=== PATIENT | female | born 1960 | race Caucasian/White ===

== ENCOUNTER → 2022-05-13 12:23 | Outpatient (CLI) | payer BC, SELFPAY ==
--- NOTE | ~2022-05-13 | MM_ITS ---
EXAMINATION: MM screening dinesh BI w ed HISTORY: Screening mammogram TECHNIQUE: Craniocaudal and mediolateral oblique 3-D tomosynthesis images were obtained and synthetic 2-D images were generated. CAD analysis was submitted and interpreted. COMPARISON: 01/20/2019 bilateral screening mammogram 04/16/2016 diagnostic left mammogram 04/08/2016 bilateral screening mammogram BREAST PARENCHYMAL COMPOSITION: The breasts are heterogeneously dense, which may obscure small masses .. FINDINGS: There is no evidence of suspicious mass, calcification, or architectural distortion to sugg est malignancy in either breast. There has been no suspicious interval change. IMPRESSION: 1. No mammographic evidence of malignancy. 2. Recommend routine screening mammography in one year. BI-RADS Category 1: Negative Reviewed, dictated and finalized at location A. ATORS SCHOOL MANAGER
== END ==
PROVIDERS: PCP Internal Medicine; Visit Provider Internal Medicine
DX: Z12.31 Encounter for screening mammogram for malignant neoplasm of breast (principal)
CPT/HCPCS: 77063; 77067

== ENCOUNTER → 2022-05-13 14:05 | Outpatient (CLI) | payer BC, SELFPAY ==
--- NOTE | ~2022-05-13 | XR_ITS ---
EXAMINATION: XR knee RT min 4V DATE: 05/13/2022 14:24 INDICATION: Right knee pain. TECHNIQUE: 4 views of right knee including standing views were obtained. COMPARISON: None. FINDINGS: Bone alignment is normal. No fracture. There is mild osteoarthritis of medial and patellofe moral compartments characterized by tiny osteophytes. No joint space narrowing. No knee joint effusio n. IMPRESSION: 1. Mild right knee osteoarthritis. Reviewed, dictated and finalized at location A. UER DIPPING MACHINE OPERATOR
== END ==
PROVIDERS: PCP Internal Medicine; Visit Provider Internal Medicine
DX: M25.561 Pain in right knee (principal); M17.11 Unilateral primary osteoarthritis, right knee
CPT/HCPCS: 73564

== ENCOUNTER 2023-01-14 12:43 | Emergency (ER) | payer BC, SELFPAY ==
--- NOTE | 2023-01-14 12:50 | ED.GENADULT ---
HPI - General Adult General Chief complaint: Allergic Reaction Stated complaint: Allergic Reaction/Face Source: patient and RN notes reviewed History of Present Illness HPI narrative: 62 yo F presents to urgent care with complaints of an itchy rash to her face. Pt states she was recently in [place] and returned this morning. Pt states yesterday morning, she was helping a friend spray for bugs when the bug spray went into her face. Pt denies any getting in her mouth or eyes. Pt states she didn't think anything of it at the time but noticed this morning her rash. Denies any fevers, chills, vomiting, trouble swallowing or breathing. Pt did take a Benadryl [employer]. Related Data Allergies Allergy/AdvReac Type Severity Reaction Status Date / Time nirmatrelvir [From Paxlovid] Allergy Anxiety Verified 01/14/23 12:57 oseltamivir [From Tamiflu] Allergy Unknown Verified 01/14/23 12:56 ritonavir [From Paxlovid] Allergy Anxiety Verified 01/14/23 12:57 Review of Systems Review of Systems: CONSTITUTIONAL: Denies fever, chills, or sweats. EYES: Denies visual changes, redness, or discharge. ENT: Denies otalgia and sore throat CARDIOVASCULAR: Denies chest pain, palpitations, or edema. RESPIRATORY: Denies cough or dyspnea. GASTROINTESTINAL: Denies abdominal pain, nausea, vomiting, or diarrhea. GENITOURINARY: Denies dysuria or hematuria. SKIN: itchy rash MUSCULOSKELETAL: Denies back pain, joint pain, or myalgia. NEUROLOGIC: Denies headache, numbness, or weakness. Pertinent positives per HPI. PMFSH Comments At the time of my signature, I reviewed and agree with the nursing past medical, surgical, social, and family history. There is no relevant family history pertinent to the patient complaint. Exam Narrative: GENERAL: This is a well-nourished, well-developed patient, in no apparent distress. HEAD: normocephalic, atraumatic. EYES: Sclera clear/white. Vision is grossly intact. EARS: External ears normal, auditory canals clear and without drainage, TMs normal without perforation. Hearing grossly intact. NOSE: External nose normal with no obvious nasal discharge, nares without redness, no rhinorrhea. THROAT: Mucous membranes moist, posterior pharynx clear. NECK: Neck supple, non-tender without lymphadenopathy, masses or thyromegaly. CARDIOVASCULAR: Regular rate and rhythm without murmurs, gallops, or rubs. RESPIRATORY: Clear to auscultation. Breath sounds equal bilaterally. No wheezes, rales, or rhonchi. GASTROINTESTINAL: Abdomen soft, non-tender, nondistended. Bowel sounds are active. No hepato-splenomegaly, or palpable masses. No guarding. SKIN: erythremic welts to bilateral cheeks. NEURO: awake, alert, and oriented to person, place and time. There were no obvious focal neurologic abnormalities. EXTREMITIES: No clubbing, cyanosis, or edema. No joint tenderness, effusion, or edema noted. BACK: Nontender without deformity or crepitus. No flank tenderness. Course Course Level of Care: Express Care Visit Vital Signs Vital signs: Vital Signs Temperature 97.3 F L 01/14/23 12:54 Pulse Rate 63 01/14/23 12:54 Respiratory Rate 14 01/14/23 12:54 Blood Pressure 113/41 L 01/14/23 12:54 Pulse Oximetry 100 01/14/23 12:54 Oxygen Delivery Room Air 01/14/23 12:54 Temperature 97.3 F L 01/14/23 12:57 Pulse Rate 63 01/14/23 12:57 Respiratory Rate 14 01/14/23 12:57 Blood Pressure 113/41 L 01/14/23 12:57 Pulse Oximetry 100 01/14/23 12:57 Oxygen Delivery Room Air 01/14/23 12:57 Reviewed Medical Decision Making MDM Narrative Medical decision making narrative: Take steroids as directed. May take 25mg-50 mg of Benadryl every 6 hours if needed for itching. If rash worsens or you develop any new symptoms, go to the ER. Differential Diagnosis Differential Diagnosis: contact dermatitis, allergic reaction, viral illness Vital Signs Vital Signs: Vital Signs Temperature 97.3 F L 01/14/23 12:54 Pulse Ra
[2023-01-14 12:54] VITALS: BP 113/41; PULSE 63; RESP 14; TEMP 36.3; O2SAT 100
[2023-01-14 12:57] VITALS: BP 113/41; PULSE 63; RESP 14; TEMP 36.3; O2SAT 100
[2023-01-14] MEDS: predniSONE 20 MG TABLET 60 MG PO (13:02)
== END 2023-01-14 13:04 | disposition home or self-care (01) ==
PROVIDERS: Emergency Provider Nurse Practitioner Family; PCP Internal Medicine
DX: L25.3 Unspecified contact dermatitis due to other chemical products (principal); E03.9 Hypothyroidism, unspecified
CPT/HCPCS: 99213; G0463; J7512

== ENCOUNTER 2023-05-18 12:12 | Emergency (ER) | payer BC, SELFPAY ==
[2023-05-18 12:16] VITALS: BP 103/59; PULSE 67; RESP 16; TEMP 36.2; O2SAT 100
--- NOTE | 2023-05-18 12:40 | ED.SKABFB ---
HPI - Skin/Abscess/Foreign Bdy General Chief complaint: Skin/Abscess/Foreign Body Stated complaint: Rash Time Seen by Provider: 05/18/23 12:40 Source: patient, RN notes reviewed and old records reviewed Mode of arrival: ambulatory Limitations: no limitations History of Present Illness HPI narrative: 63 year old female presents to express with complaints of working in her yard a couple of days cleaning along fence row and has a spot on her left inner wrist, small spot on face with itching under chin and on anterior neck. Patient reports that she was exposed to poisonous plants. Patient reports that she has been applying hydrocortisone cream to rash areas.Patient denies any shortness of breath or any difficulty swallowing. MD complaint: rash Onset (ago): day(s) (2) Location: face, neck (itching) and LUE (inner wrist) Associated symptoms: itching Treatments prior to arrival: other (hydrocortisone cream) Related Data Allergies Allergy/AdvReac Type Severity Reaction Status Date / Time nirmatrelvir [From Paxlovid] AdvReac Anxiety Verified 05/18/23 12:33 oseltamivir [From Tamiflu] AdvReac Unknown Verified 05/18/23 12:33 ritonavir [From Paxlovid] AdvReac Anxiety Verified 05/18/23 12:33 Review of Systems Review of Systems: CONSTITUTIONAL: Denies fever, chills, or sweats. CARDIOVASCULAR: Denies chest pain, palpitations, or edema. RESPIRATORY: Denies cough or dyspnea. SKIN: Reports lesion on inner left wrist, lesion on face with itching anterior neck MUSCULOSKELETAL: Denies joint pain or myalgia. NEUROLOGIC: Denies headache, numbness, or weakness. All systems reviewed & are unremarkable except as noted in HPI and below PMFSH Past Medical History Medical History (Updated 05/19/23 @ 10:06 by Shahla Tejeda NP) Hypothyroidism Post-menopausal Surgical History Surgical History (Updated 05/19/23 @ 10:02 by Shahla Tejeda NP) History of tonsillectomy History of uterine suspension procedure Social History Social History (Updated 05/19/23 @ 10:00 by Shahla Tejeda NP) Smoking status: Never smoker Alcohol intake: current Alcohol use details: rare social Substance use type: does not use Gender identity (if verbalized by the patient): Female Comments At time of signature, agree with nursing past medical, surgical, social and family history. There is no relevant family history pertinent to the presenting complaint Exam Narrative: GENERAL: Well-appearing, well-nourished, and in no acute distress. HEAD: Normocephalic, atraumatic. EYES: PERRLA, conjunctivae clear, and EOMI. ENT: Mucous membranes moist. Oropharynx without edema, erythema or lesions. tonsils absent. NECK: Supple. No lymphadenopathy CHEST: Clear to auscultation. No respiratory distress.SAO2 100% on room air HEART: Regular rate and rhythm. SKIN: Warm, dry.? small red raised lesion to inner left wrist, right face with pruritus to anterior neck NEURO:? Alert and oriented x3. PSYCH: Normal mood and affect Course Course Emergency Course: Patient is aware of diagnosis, understands and agrees to treatment plan.? Anticipatory guidance given.? Patient agrees to follow-up as directed and is aware of reasons to seek care at the emergency department. Portions of this record may have been created with voice recognition software Level of Care: Express Care Visit Vital Signs Vital signs: Vital Signs Temperature 36.2 C L 05/18/23 12:16 Pulse Rate 67 05/18/23 12:16 Respiratory Rate 16 05/18/23 12:16 Blood Pressure 103/59 L 05/18/23 12:16 Pulse Oximetry 100 05/18/23 12:16 Oxygen Delivery Room Air 05/18/23 12:16 Temperature 36.2 C L 05/18/23 12:16 Pulse Rate 67 05/18/23 12:16 Respiratory Rate 16 05/18/23 12:16 Blood Pressure 103/59 L 05/18/23 12:16 Pulse Oximetry 100 05/18/23 12:16 Oxygen Delivery Room Air 05/18/23 12:16 Reviewed MDM - Skin/Abscess/Foreign Bdy MDM Narrative M
== END 2023-05-18 12:55 | disposition home or self-care (01) ==
PROVIDERS: Emergency Provider Registered Nurse; PCP Internal Medicine
DX: L25.9 Unspecified contact dermatitis, unspecified cause (principal); E03.9 Hypothyroidism, unspecified
CPT/HCPCS: 99213; G0463

== ENCOUNTER 2023-05-23 12:53 | Outpatient (CLI) | payer BC, SELFPAY ==
--- NOTE | ~2023-05-23 | DEXA_ITS ---
Bone Density Report Name: NAHID PERERA Age: 63 Sex: Female Ethnicity: White Date of : 1960 Indication: postmenopausal; screening for osteoporosis; Referring Provider: SABA MARQUES Study: Bone densitometry was performed. Exam Date: May 23, 2023 Accession number: [id number] Bone Density: Region BMD T-score Z-score Classification AP Spine(L1-L4) 0.814 -2.1 -0.6 Osteopenia Femoral Neck (Left) 0.583 -2.4 -1.1 Osteopenia Total Hip (Left) 0.688 -2.1 -1.1 Osteopenia Femoral Neck (Right) 0.581 -2.4 -1.1 Osteopenia Total Hip (Right) 0.679 -2.2 -1.1 Osteopenia Total Hip Mean 0.683 -2.2 -1.1 Osteopenia World Health Organization criteria for BMD impression classify patients as: Normal (T-score at or above -1.0), Osteopenia (T-score between -1.0 and -2.5), or Osteoporosis (T-score at or below -2.5). 10-year Fracture Risk(1): Major Osteoporotic Fracture 11% Hip Fracture 1.9% Reported Risk Factors: [place] (), Neck BMD=0.583, BMI=23.8 (1) FRAX(R) Version 3.08. Fracture probability calculated for an untreated patient. Fracture probability may be lower if the patient has received treatment. Clinical Information Provided by Patient: Has used the following medications: Vitamin D Patient maximum height was 63 Menopause Age: 52 Does not regularly consume dairy products Drinks caffeinated beverages Onset of menses at age 14 Number of children 2 Impression: The patient has low bone mass, based on the Left Femoral Neck T-score. The patient has an estimated ten-year risk of hip fracture of 1.9% and an estimated ten-year risk of major fracture of 11%, based on the WHO FRAX algorithm. Discussion: BONE DENSITY IS LOW AT ONE OR MORE SKELETAL SITES. This patient's lowest T-score is low at one or more skeletal sites. It meets the World Health Organization's (WHO) criteria for ?low bone mass? (T-score between -1.0 and -2.5). The patient's 10-year risk of fracture as calculated by FRAX is less than the threshold where pharmacological therapy is recommended by the National Osteoporosis Foundation (NOF). However, all treatment decisions require clinical judgment and consideration of individual patient factors, including patient preferences, comorbidities, previous drug use, risk factors not captured in the FRAX model (e.g., frailty, falls, vitamin D deficiency, increased bone turnover, interval significant decline in bone density) and possible under or overestimation of fracture risk by FRAX. The patient should follow a healthful lifestyle (good nutrition with adequate calcium and vitamin D, and appropriate weight-bearing exercise). Follow-Up: Consider repeating this study in 2 to 3 years to reassess this patient's status, or sooner if there is some new clinical indication. Repo
== END 2023-05-23 12:54 | disposition home or self-care (01) ==
LOC: ANHIMG 12:55
PROVIDERS: PCP Internal Medicine; Visit Provider Internal Medicine
DX: M85.9 Disorder of bone density and structure, unspecified (principal); Z78.0 Asymptomatic menopausal state
CPT/HCPCS: 77080

== ENCOUNTER → 2023-05-27 10:57 | Outpatient (CLI) | payer BC, SELFPAY ==
--- NOTE | ~2023-05-27 | XR_ITS ---
EXAMINATION: XR lumbar spine min 4V DATE: 05/27/2023 11:51 INDICATION: Low back pain TECHNIQUE: Anteroposterior, lateral, and bilateral oblique views of the lumbar spine, and cone-down l ateral view of the lumbosacral junction were obtained. COMPARISON: None. FINDINGS: Bone alignment is normal. There is no fracture. There is severe loss of intervertebral disc space height at L5-S1. The vertebral body heights are maintained. There is severe facet joint osteoa rthritis at L5-S1. Small degenerative osteophytes project from the anterior endplates of multiple belkys tebral bodies. IMPRESSION: 1. Severe lumbar spondylosis at L5-S1 without acute osseous abnormality. Reviewed, dictated and finalized at location F. CTOR NON PROFIT
== END ==
PROVIDERS: PCP Internal Medicine; Visit Provider Internal Medicine
DX: M43.06 Spondylolysis, lumbar region (principal)
CPT/HCPCS: 72110

== ENCOUNTER 2023-06-03 09:49 | Outpatient (CLI) | payer BC, SELFPAY ==
--- NOTE | ~2023-06-03 | US_ITS ---
US abdomen complete EXAMINATION: US Abdomen Complete INDICATION: Right upper quadrant pain PROCEDURE: Realtime High Resolution abdomen ultrasound. COMPARISON: No prior studies for comparison FINDINGS: Gallbladder within normal limits. No gallstones, pericholecystic fluid, gallbladder wall t hickening or biliary dilatation. Common bile duct measures 4 mm. Liver echotexture within normal limits without focal solid mass. Pancreas within normal limits. [place] creatic tail is obscured by bowel gas. Spleen is unremarkeable. Renal echotexture is within normal l imits bilaterally without hydronephrosis, contour deforming mass or renal stone. Right kidney measure s 9.9 cm. Left kidney measures 9.6 cm. There are liver and left renal cysts. Largest liver cyst measu res 2.2 cm. Visualized aspects of the aorta and IVC are within normal limits. Portal vein is patent. No sonograph ic Ramsay's sign indicated by the technologist. IMPRESSION: 1: Liver and left renal cysts. Reviewed, dictated and finalized at location B. TANK ASSEMBLER
== END 2023-06-03 09:50 ==
LOC: MICIMG 09:51
PROVIDERS: PCP Internal Medicine; Visit Provider Internal Medicine
DX: R10.11 Right upper quadrant pain (principal); N28.1 Cyst of kidney, acquired; K76.89 Other specified diseases of liver
CPT/HCPCS: 76700

== ENCOUNTER 2023-07-12 10:26 | Outpatient (CLI) | payer BC, SELFPAY ==
--- NOTE | 2023-07-12 11:00 | NEURO_ITS ---
Impression: # Complains of right lower extremity numbness around the right knee joint medially. # Right Saphenous sensory neuropathy. # Normal F-waves. # Normal needle/EMG exam. # Clinical correlation recommended. Nerve Conduction Studies Anti Sensory Summary Table Stim Site NR Peak (ms) P-T Amp (?V) Site1 Site2 Delta-P (ms) Dist (cm) Evangelista (m/s) Right Saphenous Anti Sensory (Ant Med Mall) NO RESPONSE 14cm NR 14cm Ant Med Mall 0.0 Right Sup Fibular Anti Sensory (Ant Lat Mall) 14 cm 2.8 11.5 14 cm Ant Lat Mall 2.8 16.0 57 Right Sural Anti Sensory (Lat Mall) Calf 3.3 4.8 Calf Lat Mall 3.3 16.0 48 Motor Summary Table Stim Site NR Onset (ms) O-P Amp (mV) Site1 Site2 Delta-0 (ms) Dist (cm) Evangelista (m/s) Right Peroneal Motor (Vastus Med) Ankle 3.7 4.4 Popit Ankle 7.5 37.0 49 Popit 11.2 4.9 Right Tibial Motor (Abd Stone Brev) Ankle 3.4 7.2 Knee Ankle 7.6 41.0 54 Knee 11.0 4.5 F Wave Studies NR F-Lat (ms) L-R F-Lat (ms) Right Peroneal (Mrkrs) (EDB) 46.76 Right Tibial (Mrkrs) (Abd Hallucis) 47.15 EMG Side Muscle Nerve Root Ins Act Fibs Amp Dur Recrt Comment Right AntTibialis Dp Br Fibular L4-5 Nml Nml Nml Nml Nml Right Gastroc Tibial S1-2 Nml Nml Nml Nml Nml Right Fibularis Long Sup Br Fibular L5-S1 Nml Nml Nml Nml Nml Right Flex Dig Long Tibial L5-S2 Nml Nml Nml Nml Nml Right Ext Dig Brev Dp Br Fibular L5, S1 Nml Nml Nml Nml Nml MTDD
== END 2023-07-12 10:27 | disposition home or self-care (01) ==
LOC: ANHNEURO 10:27
PROVIDERS: PCP Internal Medicine; Visit Provider Internal Medicine
DX: R20.2 Paresthesia of skin (principal); G60.8 Other hereditary and idiopathic neuropathies
CPT/HCPCS: 95886; 95909

== ENCOUNTER 2023-08-12 07:53 | Outpatient (CLI) | payer BC, SELFPAY ==
--- NOTE | ~2023-08-12 | MR_ITS ---
MRI of the lumbar spine Clinical History: Back pain Technique: Axial T2-weighted images, and sagittal T1-weighted, T2-weighted, and T2 fat-sat images wer e acquired. Findings: There is no fracture or subluxation of the lumbar spine. Vertebral bodies maintain normal h eight and alignment. No suspicious bone marrow signal abnormality seen. At L1-L2, L2-L3, L3-L4, the intervertebral disc maintain normal signal and position. No disc bulge or herniation T levels. No spinal canal stenosis or neural foraminal narrowing at these levels. At L4-L5, there is minimal disc bulge and minimal facet arthropathy. No central canal stenosis or cindi ral foraminal narrowing. At L5-S1, there is moderate to advanced degenerative disc narrowing. There is a small central disc pr otrusion with annular fissure. No central canal stenosis. There is mild to moderate right neural fora leo narrowing, and mild left neural foraminal narrowing. Paravertebral soft tissues are unremarkable. Impression: Moderate degenerative spondylosis at L5-S1, as detailed above. Reviewed, dictated and finalized at location . IDER RELATIONS MANAGER Impression: Moderate degenerative spondylosis at L5-S1, as detailed above.
== END 2023-08-12 07:54 | disposition home or self-care (01) ==
PROVIDERS: PCP Internal Medicine; Visit Provider Internal Medicine
DX: M47.817 Spondylosis without myelopathy or radiculopathy, lumbosacral region (principal)
CPT/HCPCS: 72148

== ENCOUNTER 2023-09-12 13:19 | Outpatient (CLI) | payer BC, SELFPAY ==
--- NOTE | ~2023-09-12 | MM_ITS ---
EXAMINATION: MM screening dinesh BI w ed HISTORY: Screening mammogram TECHNIQUE: Craniocaudal and mediolateral oblique 3-D tomosynthesis images were obtained and synthetic 2-D images were generated. CAD analysis was submitted and interpreted. COMPARISON: 05/13/2022, 01/20/2019 bilateral screening mammogram examinations BREAST PARENCHYMAL COMPOSITION: There are scattered areas of fibroglandular density. FINDINGS: There is no evidence of suspicious mass, calcification, or architectural distortion to sugg est malignancy in either breast. There has been no suspicious interval change. IMPRESSION: 1. No mammographic evidence of malignancy. 2. Recommend routine screening mammography in one year. BI-RADS Category 1: Negative Reviewed, dictated and finalized at location A.
== END 2023-09-12 13:20 ==
LOC: MICIMG 13:20
PROVIDERS: PCP Nurse Practitioner; Visit Provider Internal Medicine
DX: Z12.31 Encounter for screening mammogram for malignant neoplasm of breast (principal)
CPT/HCPCS: 77063; 77067

== ENCOUNTER 2024-01-24 11:59 | Outpatient (CLI) | payer BC, SELFPAY ==
--- NOTE | 2024-01-24 13:13 | ECG_ITS ---
Test Date: 2024-01-24 13:27:43 Measurements Intervals [place] Rate: 70 P: 68 ID: [id number] QRS: 62 QRSD: 85 T: 46 QT: 377 QTc: 409 Interpretive Statements SINUS RHYTHM BASELINE ARTIFACT- I, II, III, AVR, AVL, AVF, V1-V3 NORMAL ECG No previous ECG available for comparison Electronically Signed On 01-24-2024 13:28:59 CDT by Aiden Garcia D.O.
[2024-01-24 13:38] LABS: Basophils Percent Auto 0.6 % (0.2-1.2); Eosinophils Absolute Auto 0.1 K/mm3 (0-0.3); Eosinophils Percent Auto 1.6 % (0-4.4); Hematocrit 36.5 % (37.0-47.0); Hemoglobin 12.4 g/dL (12.0-15.0); Immature Granulocyte Absolute 0.03 K/mm3 (0.00-0.031); Immature Granulocyte Percent A 0.4 % (0-0.5); Lymphocytes Absolute Auto 1.98 K/mm3 (0.9-3.2); Lymphocytes Percent Auto 29.4 % (18.3-44.2); Mean Corpuscular Hemoglobin 30.8 pg (26-34); Mean Corpuscular Volume 90.8 fl (80-100); Mean Platelet Volume 9.6 fl (7.4-10.4); Monocytes Absolute Auto 0.6 K/mm3 (0.1-0.6); Monocytes Percent Auto 9.5 % (2.6-8.5); Neutrophils Absolute Auto 3.9 K/mm3 (1.3-6.7); Neutrophils Percent Auto 58.5 % (45.5-73.1); Platelet Count Result 237 k/mm3 (150-375); Red Blood Count 4.02 M/mm3 (4.2-5.4); Red Cell Distribution Width 12.6 % (11.5-14.5); White Blood Count 6.7 K/mm3 (4.5-10.0)
[2024-01-24 13:42] LABS: INR 0.9; Prothrombin Time 12.9 Seconds (11.1-14.7)
[2024-01-24 13:43] LABS: Partial Thromboplastin Time 24.6 Seconds (22.3-36.8)
[2024-01-24 13:45] LABS: Alanine Aminotransferase 15 U/L (6-35); Albumin Level 4.8 g/dL (3.5-5.1); Alkaline Phosphatase 46 U/L (38-126); Anion Gap 10 mmol/L (4-12); Aspartate Amino Transferase 24 U/L (14-36); Bilirubin,Total 0.3 mg/dL (0.2-1.3); Blood Urea Nitrogen 18 mg/dL (7-17); Calcium 9.3 mg/dL (8.4-10.2); Carbon Dioxide 30 mmol/L (22-30); Chloride 99 mmol/L (98-107); Estimated Glomerular Filt Rate > 60; Glucose 87 mg/dL (65-110); Potassium 4.2 mmol/L (3.4-5.0); Sodium 139 mmol/L (137-145)
== END 2024-01-24 12:00 | disposition home or self-care (01) ==
LOC: ANHSURGERY 12:03
PROVIDERS: PCP Internal Medicine; Visit Provider Urology
DX: Z01.818 Encounter for other preprocedural examination (principal); N81.4 Uterovaginal prolapse, unspecified; E78.5 Hyperlipidemia, unspecified
CPT/HCPCS: 36415; 80053; 85025; 85610; 85730; 86850; 86900; 86901; 93005

== ENCOUNTER 2024-01-30 00:21 | Day surgery (SDC) | payer BC, SELFPAY ==
--- NOTE | 2024-01-22 09:45 | P.HP_ITS ---
H&P: HPI History of Present Illness Date/Time: 01/22/24 09:45 Chief Complaint: pelvic organ prolapse, stress incontinence Narrative: has bothersome pelvic organ prolapse as well as stress incontinence. Desires correction Review of Systems Review of Systems: All systems reviewed & are unremarkable except as noted in HPI and below PMFSH Past Medical History Medical History Hypothyroidism Post-menopausal Surgical History Surgical History History of tonsillectomy History of uterine suspension procedure Social History Social History Years smoked: 10 Smoking status: Former smoker Additional smoking assessment comments: ON AND OFF 10 YEARS Alcohol intake: current Alcohol use details: 1 PER MONTH Substance use: never Substance use type: does not use Living arrangements: with family Gender identity (if verbalized by the patient): Female Spiritual care concerns: No Meds Home Medications and Allergies Home Medications Medication Instructions Recorded Confirmed Type No Home Medications 04/29/22 06/03/22 History methylprednisolone 4 mg tablets in See Rx Instructions PO .COMPLEX 05/18/23 Rx a dose pack (Medrol (Selvin)) #21 ea triamcinolone acetonide 0.1 % 1 applic topical BID #80 grams 05/18/23 Rx topical ointment Allergies Allergy/AdvReac Type Severity Reaction Status Date / Time nirmatrelvir [From Paxlovid] AdvReac Anxiety Verified 08/15/23 10:37 oseltamivir [From Tamiflu] AdvReac Unknown Verified 08/15/23 10:37 ritonavir [From Paxlovid] AdvReac Anxiety Verified 08/15/23 10:37 Exam Narrative: no acute distress normal breathing alert and oriented x3 cystocele at +2. Freedom at 0 urethral mobility Assessment and Plan Assessment and plan (1) Uterine prolapse: Code(s): N81.4 - Uterovaginal prolapse, unspecified Status: Acute (2) ALMA (stress urinary incontinence, female): Code(s): N39.3 - Stress incontinence (female) (male) Status: Acute Plan robotic colpopexy with concomitant urethral sling. Understands risks of bleeding, infection, damage to surrounding organs, damage to the urinary tract, vaginal mesh extrusion, urinary tract mesh erosion, obstructive voiding requiring secondary procedure, hip and leg pain, dyspareunia, diskitis, recurrent or persistent incontinence or prolapse. Agrees to proceed
--- NOTE | 2024-01-24 12:01 | PC.NURSE ---
Report to the Outpatient Waiting Room, entrance under the green pavilion located off [facility], at time ___10:00am____ on date ___01/30/24____. Planned Procedure Time: ___12:00pm . Time changes happen often and if your time is changed the preop area will call you the afternoon before. - You and your visitor will be asked to self-screen and do not enter if you have any COVID symptoms. - A mask is optional within the hospital at this time. Patients may have clear liquids (water, carbonated beverages, clear teas, apple juice) until 3 hours prior to surgery with a maximum of 20 ounces. - No food from midnight until time of surgery Take the following medications with a SIP of water the morning of surgery: None DO NOT STOP ANY OF YOUR OTHER PRESCRIPTION MEDICATIONS PRIOR TO SURGERY ?EXCEPT THE FOLLOWING Medications to discontinue per physician All vitamins, and supplements for 3 days per Anesthesia Date to take last dose____01/26/24 Please no make-up, nail turkish, hairspray, perfume, deodorant, or body powder the day of surgery. No jewelry (including any body piercings) or valuables the day of surgery, leave them at home. Please take a shower or bath the night before, or the morning of, surgery with an antibacterial soap. Wear comfortable, loose fitting clothing. - Jewelry must be removed prior to entering the operating room. Rings and piercings that are not removed may be cut off. - The hospital will not accept responsibility for valuables. - Please leave all valuables, including medications, at home the day of surgery. If you are going home after surgery, a licensed motor coach driver must drive you home. - NO public transportation without another adult if you receive anesthesia. - We recommend that an adult stay with you for 24 hours following discharge. - We also recommend that you do not drive, make important decision, drink alcoholic beverages, or take any drugs that were not prescribed by your health care provider for at least 24 hours after your discharge time. Follow any additional instructions given to you from your surgeon. If you or anyone in your household have experienced Covid symptoms in the past week, please notify your surgeon or the nurse liaison at the phone number below for possible testing. Telephone instructions given to __patient and asked if any additional questions and then verbalized understanding. Patient advised to call surgeon office or pre surgery nurse liaison [phone] if any additional questions.
[2024-01-24 12:10] VITALS: BP 108/60; PULSE 70; RESP 16; TEMP 36.8; O2SAT 98; BMI 25.2
[2024-01-30] VITALS (9 sets, daily range): BP systolic 92–113; BP diastolic 46–63; PULSE 58–74; RESP 8–20; TEMP 36.3–37.1; O2SAT 97–100; BMI 24.7
--- NOTE | ~2024-01-30 | CT_ITS ---
CT of the Abdomen and Pelvis: Indication: Postoperative hypotension Technique: 2.5 mm axial scans were obtained through the abdomen and pelvis following intravenous adm inistration of 100 cc of Omnipaque 350. Dose reduction technique was used on this scan by utilizing a utomated exposure control and iterative reconstruction technique. The dose-length product (DLP) was 3 85.62 mGy-cm. Findings: Scans through the lung bases are unremarkable. Left hepatic lobe cyst present. There is mild gallbladder wall thickening, nonspecific. The spleen, p ancreas, adrenals and kidneys are within normal limits. No evidence of aortic aneurysm. No lymphade nopathy. No bowel obstruction or bowel wall thickening. There is extensive pneumoperitoneum, as well as enlarg ement of soft tissue gas in the anterior subcutaneous soft tissues, also which is presumably postoper ative in nature. No ascites. Small fat-containing umbilical hernia. Images through the pelvis were performed. Urias catheter and small amount of air present in the urina ry bladder. No pelvic mass evident. Impression: Extensive pneumoperitoneum and anterior subcutaneous soft tissue gas, likely postoperative in nature. Correlate clinically for any possibility of bowel perforation. No free fluid evident. Mild gallbladder wall thickening, nonspecific. Reviewed, dictated and finalized at [facility]. Impression: Extensive pneumoperitoneum and anterior subcutaneous soft tissue gas, likely po stoperative in nature. Correlate clinically for any possibility of bowel perfor ation. No free fluid evident. Mild gallbladder wall thickening, nonspecific.
--- NOTE | 2024-01-30 04:35 | WPDHPUPDATE1 ---
History and Physical Update Update Date/Time: 01/30/24 04:35 History and Physical has been reviewed, including an updated exam of the patient. There are NO changes in the patient's condition. Risks, benefits, and alternatives have been discussed and questions answered. Patient agrees to proceed with procedure.
--- NOTE | 2024-01-30 07:12 | WPDHPUPDATE1 ---
History and Physical Update Update Date/Time: 01/30/24 07:12 History and Physical has been reviewed, including an updated exam of the patient. There are NO changes in the patient's condition. Risks, benefits, and alternatives have been discussed and questions answered. Patient agrees to proceed with procedure.
[2024-01-30] MEDS: KETOROLAC 15 MG/ML VIAL (*BKC) IV PUSH ×2 (11:14→17:46)
[2024-01-30] MEDS: LACTATED RINGERS 1,000 ML 30 ML IV CONT ×2 (11:14→14:43)
[2024-01-30] MEDS: SCOPOLAMINE 1 MG PATCH 1 PATCH TRANSDERM ×2 (11:14→11:15)
[2024-01-30] MEDS: ACETAMINOPHEN 500 MG TABLET 1000 MG PO (11:14)
--- NOTE | 2024-01-30 11:39 | P.PNAN_ITS ---
Anes - Initial Pre Proc Eval Procedure: Operation Date: 01/30/24 12:00 Proposed Procedures p Robotic Sacrocolpopexy, Urethral Sling - Wayne Grider MD s Robotic Laparoscopic Supracervical Hysterectomy with Bilateral Salpingo- oophorectomy - Rex Hackett MD Date/Time: 01/30/24 11:39 Surgeon: Wayne Grider MD Pre Op Diagnosis: incomp uterovag prolapse, cystocele, stress incont Patient Data Age: 63 Gender: F Height: 1.59 m Weight: 64 kg Last Vital Signs Temp 98.3 F 01/24/24 12:10 Pulse 70 01/24/24 12:10 Resp 16 01/24/24 12:10 BP 108/60 01/24/24 12:10 Pulse Ox 98 01/24/24 12:10 O2 Del Method Room Air 01/24/24 12:10 Allergies Allergy/AdvReac Type Severity Reaction Status Date / Time nirmatrelvir [From Paxlovid] AdvReac Intermediate Anxiety, Verified 01/24/24 13:21 confusion oseltamivir [From Tamiflu] AdvReac Intermediate Unknown Verified 01/24/24 13:21 ritonavir [From Paxlovid] AdvReac Intermediate Anxiety, Verified 01/24/24 13:21 confusion Home Medications Medication Instructions Recorded Confirmed Type minerals 1 tablet PO DAILY 01/24/24 01/24/24 History multivitamin 1 cap PO DAILY 01/24/24 01/24/24 History potassium bicarb 500 mg-magnesium 1 g PO DAILY 01/24/24 01/24/24 History 300 mg/6.1 gram effervescent powder (Magnesium Fizz-Plus) Patient hx anesthesia problems: none Family hx anesthesia problems: none Results Review: All pre-operative results and documents have been reviewed as part of the pre- operative evaluation. [facility] Past Medical History Medical History Hypothyroidism Post-menopausal Surgical History Surgical History History of tonsillectomy History of uterine suspension procedure Social History Social History Smoking packs per day: 0.25 Smoking cigarettes per day: 5.0 Years smoked: 5 Smoking pack-years: 1.25 Smoking status: Former smoker Tobacco type: cigarettes Smoking end date: 11/01/97 Additional smoking assessment comments: ON AND OFF 10 YEARS Alcohol intake: current Alcohol use details: 1 PER MONTH Substance use: never Substance use type: does not use Living arrangements: with family Additional living arrangements comments: Gender identity (if verbalized by the patient): Female Spiritual care concerns: No Anes - Eval Final PreProcedure Day of Procedure 01/30/24 11:39 Patient weight: normal Heart: regular rate and rhythm Lungs: clear to auscultation Airway: Mallampati scale class II Neurological: alert and oriented Last oral intake: >/= 8 hours ASA classification: III Emergent: no Anesthetic plan: proceed Anesthesia type and monitoring: general ETT and standard monitoring Results Review: All pre-operative results and documents have been reviewed as part of the pre- operative evaluation. Informed Consent: The patient's anesthetic plan and its attendant risks and benefits were discussed with the patient/family/POA. Questions were solicited and answers provided to the satisfaction of the patient/family/
--- NOTE | 2024-01-30 11:52 | WPDHPUPDATE1 ---
History and Physical Update Update Date/Time: 01/30/24 11:52 History and Physical has been reviewed, including an updated exam of the patient. There are NO changes in the patient's condition. Risks, benefits, and alternatives have been discussed and questions answered. Patient agrees to proceed with procedure.
[2024-01-30] MEDS: metroNIDAZOLE 500 MG/ISO 100ML 500 MG/100 ML BAG 100 MG IVPB ×2 (12:13→21:39)
[2024-01-30] MEDS: ceFAZolin 2 GM/D5W 50 ML 2 GM/50 ML BAG IVPB (12:13)
[2024-01-30] MEDS: BUPIVACAINE/EPINEPHRINE 0.5% 10 ML VIAL 40 ML INFILTRATE (12:31)
--- NOTE | 2024-01-30 13:17 | W.PM.PROC2 ---
Procedure Note - Detailed Date of Procedure 01/30/24 Pre-op Diagnosis incomp uterovag prolapse, cystocele, stress incont Post-op Diagnosis Same Procedure Performed laparoscopic supracervical hysterectomy and bilateral salpingo-oophorectomy. Surgeon Rex Hackett MD Anesthesia General Indications pelvic organ prolapse Findings small uterus, normal appearing ovaries and normal-appearing tubes. Description of Procedure This patient was taken to the operating room. She was prepped and draped in the dorsal lithotomy position after induction of general anesthesia. a tenaculum was applied to the vaginal mucosa at the cervicovaginal juncture posteriorly. This was done with a speculum and tenaculum. The speculum was placed. The cervix was grasped with a tenaculum. Trocars were placed by Dr. Grider. The location of the ureters was identified at the pelvic brim. The ovaries were grasped and raised. The infundibulopelvic ligaments were cauterized and transected with LigaSure cautery. This was all done in a bilateral fashion. The para ovarian tissue was cauterized and transected with LigaSure cautery bilaterally. Moving around the ovary into the broad ligament the tissue was cauterized transected with LigaSure cautery. The round ligaments were cauterized transected with LigaSure cautery this was all done in a bilateral fashion. In a stepwise fashion along the lateral aspects of the uterus the round ligament and broad ligaments were cauterized transected down to the level of the uterine arteries. The cervix was transected using unipolar cautery. The uterus and bilateral tubes and ovaries were laid off to the side for Dr. Grider to remove later. The remainder of the procedure was performed by Dr. Grider again he finished the surgery. Estimated Blood Loss 10 Drains Yes Packing No Pathology Yes Complications No immediate complications Condition Stable Disposition Floor
--- NOTE | 2024-01-30 14:14 | SUR.OPER ---
urethral sling start 1413.
--- NOTE | 2024-01-30 14:36 | W.PM.PROC2 ---
Procedure Note - Detailed Date of Procedure 01/30/24 Pre-op Diagnosis incomp uterovag prolapse, cystocele, stress incont Post-op Diagnosis Same Procedure Performed Robotic assisted laparoscopic sacral colpopexy Urethral sling Cystoscopy Surgeon Wayne Grider MD Anesthesia General Indications A woman with uterine prolapse as well as stress incontinence. She desires surgical correction. She is here for the above. She understands risks of bleeding, infection, diskitis, damage to surrounding organs, bowel injury, bowel obstruction, mesh related complications including exposure and extrusion, postoperative voiding dysfunction including incontinence and retention, need for ancillary procedures, dyspareunia, recurrence of prolapse, and other perioperative intraoperative postoperative complications. She agrees to proceed. Findings See below Description of Procedure She was correctly identified. Informed consent obtained. She from the operating room. She was given general anesthesia. She was given appropriate perioperative antibiotics. She was placed a low lithotomy position. Pressure points were padded. A time-out performed. I marked out the skin 3 fingerbreadths cephalad to the umbilicus. I anesthetized the skin. I incised the skin. I dissected down to the fascia. I grasped the fascia with Cheko clamps. I entered the fascia sharply in a Prieto type technique. I placed sutures for later fascial closure. I placed a midline trocar. I examined the abdomen. There is no sign of any injury. Under direct vision I placed 2 additional trocars in the right upper quadrant and 2 additional trocars the left upper quadrant. Examination of the pelvis reveals a previous uterine suspension procedure. She was placed in steep Trendelenburg. The robot was docked. Her engineering surveyor completed their portion of the procedure. Please see that operative report for details. I then sat at the console. The Sizer in the vagina created plane on the anterior and posterior vaginal wall. I took great care not to injure the vagina, bladder, or rectum. I introduced the mesh into the abdomen. I sewed the anterior leaflet of mesh on the anterior vaginal wall. I sewed the posterior leaflet of mesh on the posterior vaginal wall. This was done with several sutures of 2 0 [place]-Miguel Angle. I reflected the colon laterally. I opened the posterior peritoneum over the sacral promontory. I carried this into the cul-de-sac. I freed up the edges for later retroperitonealization. I located the anterior longitudinal ligament the sacrum. I cleaned off all fatty tissues. I then tensioned my mesh appropriately. I did a vaginal exam the bedside. I assured prolapse reduction without undue tension. I then sewed the proximal leaflet of mesh onto the anterior longitudinal ligament of the sacrum with 4 sutures of 2 0 [place]-Miguel Nagel. I then used a 2 0 Monocryl to completely and meticulously retroperitonealized all mesh. I allowed the colon to go back to its normal anatomic location. There is no sign of any impingement. The specimen was then removed. All ports removed. Fascia was tied down. Additional suture was placed to fully close the fascia. Skin was closed with Monocryl and surgical glue. She was repositioned and prepped for urethral sling. I marked out the inner thigh incisions. I anesthetized the skin and made the incisions. I then anesthetized the anterior vaginal wall at the mid urethra. Of note she had significant atrophic vaginitis and vaginal tissues. I made a 1 cm incision. I dissected out laterally taking great care not to injure the urethra or the vaginal wall. I passed the helical trocars. I did this 1st on the left and then on the right. This was done from the thigh incision towards the vaginal incision. Sling was connected to the trocars and brought out the thigh incision. I tensioned the sling appropriately. I cut and the plastic sheaths. I closed the incision wi
[2024-01-30] MEDS: fentaNYL CITRATE INJ (*CRX) 100 MCG/2 ML VIAL 25 MCG IV PUSH ×3 (15:05→15:27)
--- NOTE | 2024-01-30 15:55 | OBPPTRN ---
Patient transferred to post room #289 via bed. Oriented to unit, room, information board, rooming in, admission packet and security measures. Patient verbalizes understanding.
[2024-01-30] MEDS: KCL 20 MEQ/D5/0.45% SOD CHL 1,000 ML 100 ML IV CONT (16:21)
[2024-01-30] MEDS: HYDROcodone/acetaminophen (*CRX) 5-325 MG TABLET 1 TAB PO (16:22)
[2024-01-30] MEDS: ceFAZolin 1 GM/NS 50 ML 1 GM/50 ML BAG IVPB (20:43)
[2024-01-30] MEDS: ONDANSETRON INJ 4 MG/2 ML VIAL IV PUSH (20:50)
--- NOTE | 2024-01-30 22:30 | PC.NURSE ---
2144- Patient told Machelle Haque RN via call light that she was feeling nauseous and turning yellow. Machelle Haque RN entered the room, quickly assessed the patient, then contacted this RN. This RN took patient blood pressure and it was 92/51. The patient stated she was dizzy, faint, and nausous and she had turned yellow but it went away. This RN contacted Dr. Hackett at this time and notified him. He verbally ordered promethzine 12.5 IV q8h PRN. This RN informed the family and patient stated she was no longer nauseous. 2244- Patient called out and stated that she felt as though she was having an allergic reaction to the medication as her throat was itchy and she developed a cough. RN entered the room and assessed the patient. Oxygen saturation was 97%. This RN gave patient 25 mg Benedryl IV as ordered for itching. Patient stated she felt instant relief and that she felt loopy . Keyonat began to act slightly confused but was able to tell me her name, where she was, and the date. Patient's at the bedside. Patient and family member educated to contact this RN if patient continues to feel disoriented, itchy in the throat, or nauseous. 2329 - Christine Leavitt RN entered the room per this RN request to check in with patient. Patient stated she was feeling much better but was having visual hallucinations from lack of sleep and too much medication. During this shift, patient has taken ordered ancef, ordered falgyl, PRN zofran, and PRN benedryl. Patient stated that she takes herbal medication at home and her liver isn't accustomed to medications. Christine NINO did an assessment of the patient, reminded her to call out if needed, and told the patient to get some rest. Patient's remains at the bedside.
[2024-01-30] MEDS: diphenhydrAMINE HCl INJ 50 MG/ML VIAL 25 MG IV PUSH (22:45)
[2024-01-31 02:33] VITALS: BP 77/41; PULSE 63; RESP 18; TEMP 36.8; O2SAT 97
--- NOTE | 2024-01-31 03:50 | PC.NURSE ---
0231- Patient called RN into the room for IV fluids beeping. RN entered the room, restarted IV fluids, assessed patient, assessed output, and did vital signs. Upon vital sign assessment, RN received value of 73/39. RN retook blood pressure in left arm and received value of 77/41. RN left the room and contacted Dr. Hackett at this time. Dr. Hackett did not answer and this RN left message to receive call back. 0235- This RN contacted charge nurse Eri Carroll RN for further instructions. Laurel NINO suggested a 300 mL bolus of Lactated Ringers, rechecking blood pressure, and contacting Dr. Hackett again. When this RN entered the room to begin the bolus and recheck blood pressure, the patient stated that her right ankle was having a deep burning sensation. This RN assessed the ankle and did not notice any redness or swelling at this time. Patient stated that MERON hose or SCDs did not affect the pain. This RN placed the MERON hose and SCDs back on leg. Bolus began and blood pressure was taken again. The first blood pressure was 123/107 in her left arm. This RN waited 5 minutes, rechecked and got a value of 77/44. At this time, this RN took a manual blood pressure and received a value of 74/40. 0257- Contacted Dr. Hackett again and received orders for a stat CT of the abdomen and pelvis to be done. 0327 - Laurel Carroll RN took patient to CT for scan. 0350 - Laurel Carroll RN returned to the floor with the patient and hooked her back up to her SCDs, heating pad, and IV.
[2024-01-31 04:00] VITALS: BP 73/39; PULSE 63; RESP 16; TEMP 36.8; O2SAT 97
[2024-01-31] MEDS: ceFAZolin 1 GM/NS 50 ML 1 GM/50 ML BAG IVPB ×2 (04:43→13:08)
[2024-01-31 04:46] VITALS: BP 78/41; PULSE 68; RESP 20; TEMP 37.1; O2SAT 96
[2024-01-31] MEDS: metroNIDAZOLE 500 MG/ISO 100ML 500 MG/100 ML BAG 100 MG IVPB (05:05)
[2024-01-31 07:35] VITALS: BP 110/47; PULSE 62; RESP 16; TEMP 37.3; O2SAT 100
[2024-01-31] MEDS: DOCUSATE SODIUM 100 MG CAPSULE PO (08:33)
[2024-01-31] MEDS: ENOXAPARIN 30 MG/0.3 ML SYRINGE SUB-Q (08:34)
--- NOTE | 2024-01-31 08:48 | PM.GYNPNOP ---
ONLINE ACTIVIST - A/P Assessment and plan (1) Hypotension: Code(s): I95.9 - Hypotension, unspecified Status: Acute Plan portal hypertension, continue observation, hospitalist consultation. Postoperative Procedures: Procedures Operation Date: 01/30/24 12:00 Actual Procedure Side Surgeon p Robotic Sacrocolpopexy, Urethral Sling Not Applicable Wayne Grider MD s Robotic Laparoscopic Supracervical Hysterectomy with Bilateral Salpingo-oophorectomy Bilateral Rex Hackett MD Postoperative day: 1 Postoperative status: doing well and other (Tollerating Regular Diet) Postoperative plan: routine post-op care and discharge Time Spent With Patient Time: Total time spent is greater than 50% in coordination of care (as documented) at patient's floor/unit and/or counseling patient: Time with patient: 15 - 25 minutes ONLINE ACTIVIST- PN:Amador Post-Op Subjective Date/time seen: 01/31/24 08:48 Subjective: patient reports feeling better, pain is well controlled and patient is tolerating oral intake Exam Const: General: cooperative, healthy appearing, comfortable and no acute distress Resp: Auscultation: no crackles, no rales, no rhonchi and no wheezes Cardio: Rhythm: regular rhythm Heart sounds: no click and no murmurs GI: Inspection: non-distended Auscultation: normal bowel sounds Other: Incisions - CDI Extrem: General: normal to inspection, no pedal edema and no calf tenderness ONLINE ACTIVIST - PN: Obj Data Vital Signs Vital Signs: Vital Signs - 24 hr 01/30/24 11:00 01/30/24 14:43 01/30/24 14:55 Temperature 97.9 F 97.4 F L Pulse Rate 62 63 64 Respiratory Rate 16 8 L 12 Blood Pressure 111/56 L 113/59 L 98/46 L Pulse Oximetry 100 100 100 Oxygen Delivery Room Air Simple Face Mask Simple Face Mask Oxygen Flow Rate 6 6 01/30/24 15:10 01/30/24 15:25 01/30/24 15:40 Temperature Pulse Rate 62 58 L 59 L Respiratory Rate 10 L 10 L 14 Blood Pressure 101/58 L 100/62 102/55 L Pulse Oximetry 100 100 99 Oxygen Delivery Simple Face Mask Room Air Room Air Oxygen Flow Rate 6 01/30/24 16:15 01/30/24 20:00 01/30/24 20:00 Temperature 98.1 F 98.7 F Pulse Rate 60 74 Respiratory Rate 16 20 Blood Pressure 111/63 102/56 L Pulse Oximetry 99 97 Oxygen Delivery Room Air Oxygen Flow Rate 01/30/24 22:45 01/30/24 22:45 01/31/24 02:33 Temperature 98.2 F 98.3 F Pulse Rate 58 L 63 Respiratory Rate 18 18 Blood Pressure 92/51 L 77/41 L Pulse Oximetry 97 97 Oxygen Delivery Room Air Oxygen Flow Rate 01/31/24 04:00 01/31/24 04:46 Temperature 98.3 F 98.8 F Pulse Rate 63 68 Respiratory Rate 16 20 Blood Pressure 73/39 L 78/41 L Pulse Oximetry 97 96 Oxygen Delivery Oxygen Flow Rate Intake/Output Intake/Output: Intake & Output 01/28/24 01/29/24 01/30/24 01/31/24 23:59 23:59 23:59 23:59 Intake Total 1220 Output Total 350 1950 Balance 870 -1950 Meds/Results Medications: Active Medications Generic Name Dose Route Start Last Admin Trade Name Freq PRN Reason Stop Dose Admin Hydrocodone Bitart/Acetaminophen 1 tab 01/30/24 15:52 01/30/24 16:22 Hydrocodone/Acetaminophen (*Crx) 5-325 Mg Tablet PO 1 tab Q4H PRN Administration Pain Rated 4-5 Cephalexin HCl 500 mg 01/31/24 17:00 Cephalexin 500 Mg Capsule PO QID NIKHIL Diphenhydramine HCl 25 mg 01/30/24 15:52 01/30/24 22:45 Diphenhydramine Hcl Inj 50 Mg/Ml Vial IV PUSH 25 mg Q6H PRN Administration Itching Docusate Sodium 100 mg 01/31/24 09:00 01/31/24 08:33 Docusate Sodium 100 Mg Capsule PO 100 mg DAILY NIKHIL Administration Enoxaparin Sodium 30 mg 01/31/24 09:00 01/31/24 08:34 Enoxaparin 30 Mg/0.3 Ml Syringe SUB-Q 30 mg DAILY NIKHIL Administration Potassium Chloride/Dextrose/Sod Cl 1,000 mls @ 100 mls/hr 01/30/24 15:52 01/31/24 04:25 Kcl 20 Meq/D5/0.45% Sod Chl IV CONT Not Given .Q10H NIKHIL Cefazolin Sodium 1 gm in 50 mls @ 100 mls/hr 01/30/24 20:00 07
[2024-01-31] MEDS: KETOROLAC 15 MG/ML VIAL (*BKC) IV PUSH (09:10)
[2024-01-31 14:45] VITALS: BP 121/63; PULSE 70; RESP 18; TEMP 36.9; O2SAT 99
--- NOTE | 2024-01-31 15:30 | WPDCN ---
Assessment and Plan Assessment and plan (1) Hypotension: Code(s): I95.9 - Hypotension, unspecified Status: Acute (2) Uterine prolapse: Code(s): N81.4 - Uterovaginal prolapse, unspecified Status: Acute (3) Stress incontinence: Code(s): N39.3 - Stress incontinence (female) (male) Status: Acute (4) Hypothyroidism: Code(s): E03.9 - Hypothyroidism, unspecified Status: Acute Plan Consult request received approximately 14:30. Chart was thoroughly reviewed and orders were placed. I went to see the patient about an hour later and she will arouse HPI Data of Consult Date/Time: 01/31/24 15:30 Requesting Physician: Wayne Grider MD Primary Care Provider: Carmen Christine MD Consult Narrative Reason for consult: Hypotension. Narrative: This is a 63-year-old female with stress urinary incontinence and pelvic organ prolapse who is postoperative day 1 status post robotic assisted laparoscopic sacral colpopexy with urethral sling and cystoscopy per Dr. Grider and laparoscopic supracervical hysterectomy and bilateral salpingo-oophorectomy per Dr. Hackett for pelvic organ prolapse and stress incontinence respectively whom the hospitalist service has been consulted for low blood pressures overnight. Operative notes were reviewed. She had minimal blood loss and there were no immediate complications documented. Overnight she began to feel unwell with dizziness, lightheadedness, and nausea for which she received promethazine 12.5 mg IV with improvement however an hour thereafter she thought she was having an allergic reaction with itchy throat and cough and she was given diphenhydramine 25 mg IV with instant relief. Thereafter she felt a bit ?loopy and confused? and reported having some visual hallucinations which she will that was due to lack of sleep and medications. At about 02:30 she was noted to have a blood pressure of 74/40 for which she was given 300 mL IV fluid bolus. She was sent for a CT of the abdomen and pelvis which showed likely postoperative changes. The hospitalist service was consulted this afternoon regarding the hypotension in the middle of the night. [facility] Past Medical History Medical History (Updated 01/31/24 @ 15:39 by Chantale Ruelas PA-C) Hypothyroidism Post-menopausal Stress incontinence Uterine prolapse Surgical History Surgical History (Updated 01/31/24 @ 15:39 by Chantale Ruelas PA-C) History of bilateral salpingo-oophorectomy (01/30/24) History of hysterectomy, supracervical (01/30/24) History of midurethral sling procedure (01/30/24) History of sacrocolpopexy (01/30/24) History of tonsillectomy History of uterine suspension procedure Social History Social History (Updated 01/31/24 @ 15:53 by Chantale Ruelas PA-C) Social History: Surrogate medical decision maker: Jessee Naranjoer, spouse. Code status: Full code. Smoking packs per day: 0.25 Smoking cigarettes per day: 5.0 Years smoked: 5 Smoking pack-years: 1.25 Smoking status: Former smoker Tobacco type: cigarettes Smoking end date: 11/01/97 Alcohol intake: current Alcohol use details: Perhaps 1 alcoholic beverage a month. Substance use: never Substance use type: does not use Living arrangements: with family Additional living arrangements comments: Lives with spouse. Spiritual care concerns: No Meds Home Medications and Allergies Home Medications Medication Instructions Recorded Confirmed Type minerals 1 tablet PO DAILY 01/24/24 01/24/24 History multivitamin 1 cap PO DAILY 01/24/24 01/24/24 History potassium bicarb 500 mg-magnesium 1 g PO DAILY 01/24/24 01/24/24 History 300 mg/6.1 gram effervescent powder (Magnesium Fizz-Plus) docusate sodium 100 mg capsule 100 mg PO BID #40 caps 01/30/24 Rx (Colace) hydrocodone 5 mg-acetaminophen 325 1 tablet PO Q6H PRN pain #20 tabs 01/30/24 Rx mg tablet Allergies Allergy/AdvReac Type Madai
--- NOTE | 2024-02-01 15:08 | PM.EVENT ---
Event Note Event Note Event Note: Hospitalist consultation was received on this patient at 14:30 on 01/31/2024. Chart was thoroughly reviewed and orders were placed in the computer. I went to see the patient a little over an hour later however the patient was not seen as she was being discharged by the primary service.
== END 2024-01-31 15:45 | disposition home or self-care (01) ==
LOC: ANHSURGERY 10:12 → ANHOB2 15:53
PROVIDERS: Obstetrics & Gynecology; PCP Internal Medicine; Visit Provider Urology
PROC: (CPT 57425; principal; 2024-01-30 12:00)
PROC: (CPT 58542; 2024-01-30 12:00)
DX: N81.2 Incomplete uterovaginal prolapse (principal); N39.3 Stress incontinence (female) (male); D25.1 Intramural leiomyoma of uterus; Z87.891 Personal history of nicotine dependence
CPT/HCPCS: 57425; 57288; 58542; S2900 ×2; 36415; 74177; 80053; 85025; 85610; 85730; 86850; 86900; 86901; 88307; 93005; 99199; A9270; C1771; C1781; J0690; J1100; J1200; J1650; J1836; J1885; J2250; J2405; J2704; J3010; J3480; J7030; J7120; Q9967

== ENCOUNTER 2024-01-31 17:41 | Outpatient (CLI) | payer BC, SELFPAY ==
[2024-01-31 18:04] LABS: Basophils Absolute Auto 0.1 K/mm3 (0.0-0.1); Basophils Percent Auto 0.4 % (0.2-1.2); Eosinophils Percent Auto 0.2 % (0-4.4); Hematocrit 33.1 % (37.0-47.0); Hemoglobin 11.1 g/dL (12.0-15.0); Immature Granulocyte Absolute 0.06 K/mm3 (0.00-0.031); Immature Granulocyte Percent A 0.5 % (0-0.5); Lymphocytes Absolute Auto 1.51 K/mm3 (0.9-3.2); Lymphocytes Percent Auto 11.4 % (18.3-44.2); Mean Corpuscular HGB Conc 33.5 g/dl (32-36); Mean Corpuscular Hemoglobin 30.9 pg (26-34); Mean Corpuscular Volume 92.2 fl (80-100); Mean Platelet Volume 9.6 fl (7.4-10.4); Monocytes Percent Auto 7.4 % (2.6-8.5); Neutrophils Absolute Auto 10.7 K/mm3 (1.3-6.7); Neutrophils Percent Auto 80.1 % (45.5-73.1); Platelet Count Result 212 k/mm3 (150-375); Red Blood Count 3.59 M/mm3 (4.2-5.4); Red Cell Distribution Width 12.8 % (11.5-14.5); White Blood Count 13.3 K/mm3 (4.5-10.0)
[2024-01-31 18:16] LABS: Alanine Aminotransferase 19 U/L (6-35); Albumin Level 4.4 g/dL (3.5-5.1); Alkaline Phosphatase 47 U/L (38-126); Anion Gap 10 mmol/L (4-12); Aspartate Amino Transferase 36 U/L (14-36); Bilirubin,Total 0.5 mg/dL (0.2-1.3); Blood Urea Nitrogen 12 mg/dL (7-17); Carbon Dioxide 26 mmol/L (22-30); Chloride 102 mmol/L (98-107); Estimated Glomerular Filt Rate > 60; Glucose 125 mg/dL (65-110); Potassium 3.8 mmol/L (3.4-5.0); Sodium 138 mmol/L (137-145)
== END 2024-01-31 17:42 | disposition home or self-care (01) ==
LOC: ANHLAB 17:45
PROVIDERS: PCP Internal Medicine; Visit Provider Internal Medicine
DX: R10.9 Unspecified abdominal pain (principal)
CPT/HCPCS: 36415; 80053; 85025

== ENCOUNTER 2024-02-01 17:43 | Emergency (ER) | payer BC, SELFPAY ==
[2024-02-01 17:52] VITALS: BP 118/50; PULSE 86; RESP 18; TEMP 37.3; O2SAT 98
--- NOTE | 2024-02-01 19:47 | PC.NURSE ---
patient stated wait was too long and left from waiting room
== END 2024-02-01 19:47 | disposition left against medical advice (07) ==
LOC: ANHED 19:49
PROVIDERS: PCP Internal Medicine
DX: R50.9 Fever, unspecified (principal)
CPT/HCPCS: 99199

== ENCOUNTER 2024-02-02 10:10 | Outpatient (CLI) | payer BC, SELFPAY ==
[2024-02-02 10:33] LABS: Basophils Percent Auto 0.4 % (0.2-1.2); Eosinophils Absolute Auto 0.1 K/mm3 (0-0.3); Eosinophils Percent Auto 1.5 % (0-4.4); Hematocrit 30.6 % (37.0-47.0); Hemoglobin 10.2 g/dL (12.0-15.0); Immature Granulocyte Absolute 0.02 K/mm3 (0.00-0.031); Immature Granulocyte Percent A 0.2 % (0-0.5); Lymphocytes Absolute Auto 1.63 K/mm3 (0.9-3.2); Mean Corpuscular HGB Conc 33.3 g/dl (32-36); Mean Corpuscular Hemoglobin 30.6 pg (26-34); Mean Corpuscular Volume 91.9 fl (80-100); Mean Platelet Volume 9.7 fl (7.4-10.4); Monocytes Absolute Auto 0.9 K/mm3 (0.1-0.6); Monocytes Percent Auto 11.1 % (2.6-8.5); Neutrophils Absolute Auto 5.4 K/mm3 (1.3-6.7); Neutrophils Percent Auto 66.8 % (45.5-73.1); Platelet Count Result 203 k/mm3 (150-375); Red Blood Count 3.33 M/mm3 (4.2-5.4); Red Cell Distribution Width 12.6 % (11.5-14.5); White Blood Count 8.1 K/mm3 (4.5-10.0)
[2024-02-03 06:01] LABS: Alanine Aminotransferase 19 U/L (6-35); Albumin Level 4.1 g/dL (3.5-5.1); Alkaline Phosphatase 47 U/L (38-126); Anion Gap 5 mmol/L (4-12); Aspartate Amino Transferase 28 U/L (14-36); Bilirubin,Total 0.6 mg/dL (0.2-1.3); Blood Urea Nitrogen 10 mg/dL (7-17); Calcium 8.9 mg/dL (8.4-10.2); Carbon Dioxide 30 mmol/L (22-30); Chloride 102 mmol/L (98-107); Estimated Glomerular Filt Rate > 60; Glucose 84 mg/dL (65-110); Potassium 4.1 mmol/L (3.4-5.0); Sodium 137 mmol/L (137-145)
== END 2024-02-02 10:11 | disposition home or self-care (01) ==
LOC: ANHLAB 10:13
PROVIDERS: PCP Internal Medicine; Visit Provider Internal Medicine
DX: D72.829 Elevated white blood cell count, unspecified (principal); Z90.710 Acquired absence of both cervix and uterus
CPT/HCPCS: 36415; 80053; 85025

== ENCOUNTER 2024-02-10 08:04 | Outpatient (CLI) | payer BC, SELFPAY ==
[2024-02-10 08:50] LABS: Basophils Absolute Auto 0.1 K/mm3 (0.0-0.1); Basophils Percent Auto 0.7 % (0.2-1.2); Eosinophils Absolute Auto 0.2 K/mm3 (0-0.3); Eosinophils Percent Auto 2.6 % (0-4.4); Hemoglobin 12.1 g/dL (12.0-15.0); Immature Granulocyte Absolute 0.03 K/mm3 (0.00-0.031); Immature Granulocyte Percent A 0.4 % (0-0.5); Lymphocytes Absolute Auto 1.82 K/mm3 (0.9-3.2); Lymphocytes Percent Auto 24.9 % (18.3-44.2); Mean Corpuscular HGB Conc 32.7 g/dl (32-36); Mean Corpuscular Volume 91.6 fl (80-100); Mean Platelet Volume 9.1 fl (7.4-10.4); Monocytes Absolute Auto 0.6 K/mm3 (0.1-0.6); Monocytes Percent Auto 8.1 % (2.6-8.5); Neutrophils Absolute Auto 4.6 K/mm3 (1.3-6.7); Neutrophils Percent Auto 63.3 % (45.5-73.1); Platelet Count Result 316 k/mm3 (150-375); Red Blood Count 4.04 M/mm3 (4.2-5.4); Red Cell Distribution Width 12.6 % (11.5-14.5); White Blood Count 7.3 K/mm3 (4.5-10.0)
== END 2024-02-10 08:05 | disposition home or self-care (01) ==
LOC: ANHLAB 08:06
PROVIDERS: PCP Internal Medicine; Visit Provider Internal Medicine
DX: D64.9 Anemia, unspecified (principal)
CPT/HCPCS: 36415; 85025

== ENCOUNTER 2024-02-15 13:19 | Outpatient (CLI) | payer BC, SELFPAY ==
[2024-02-15 12:08] LABS: Basophils Absolute Auto 0.1 K/mm3 (0.0-0.1); Basophils Percent Auto 0.7 % (0.2-1.2); Eosinophils Absolute Auto 0.1 K/mm3 (0-0.3); Eosinophils Percent Auto 1.8 % (0-4.4); Hematocrit 40.2 % (37.0-47.0); Hemoglobin 13.2 g/dL (12.0-15.0); Immature Granulocyte Absolute 0.04 K/mm3 (0.00-0.031); Immature Granulocyte Percent A 0.6 % (0-0.5); Lymphocytes Absolute Auto 1.88 K/mm3 (0.9-3.2); Mean Corpuscular HGB Conc 32.8 g/dl (32-36); Mean Corpuscular Hemoglobin 30.1 pg (26-34); Mean Corpuscular Volume 91.6 fl (80-100); Mean Platelet Volume 9.2 fl (7.4-10.4); Monocytes Absolute Auto 0.5 K/mm3 (0.1-0.6); Monocytes Percent Auto 7.5 % (2.6-8.5); Neutrophils Absolute Auto 4.6 K/mm3 (1.3-6.7); Neutrophils Percent Auto 63.4 % (45.5-73.1); Platelet Count Result 350 k/mm3 (150-375); Red Blood Count 4.39 M/mm3 (4.2-5.4); Red Cell Distribution Width 12.7 % (11.5-14.5); White Blood Count 7.2 K/mm3 (4.5-10.0)
[2024-02-15 12:12] LABS: Add Urine Microscopic? YES; Appearance Urine Clear (Clear); Bacteria Urine None Seen /hpf; Bilirubin Urine Negative (Negative); Blood Urine Negative (Negative); Color Urine Yellow (Yellow); Glucose Urine UA Negative (Negative); Ketones Urine Negative (Negative); Leukocyte Esterase Ur 1+ LEU/UL (Negative); Nitrate Urine Negative (Negative); Non Pathogenic Casts 0-2; Protein Urine Negative (Negative); RBC Urine 0-2 /hpf (0-2); Specific Grav Ur 1.005 (1.001-1.035); Squamous Epithelial Cell Urine None Seen /hpf (Few); Urobilinogen Urine 0.2 mg/dL (<2.0)
[2024-02-15 12:18] LABS: Alanine Aminotransferase 18 U/L (6-35); Alkaline Phosphatase 63 U/L (38-126); Amylase 72 U/L (30-110); Anion Gap 11 mmol/L (4-12); Aspartate Amino Transferase 27 U/L (14-36); Bilirubin,Total 0.7 mg/dL (0.2-1.3); Blood Urea Nitrogen 11 mg/dL (7-17); Calcium 9.6 mg/dL (8.4-10.2); Carbon Dioxide 30 mmol/L (22-30); Chloride 98 mmol/L (98-107); Estimated Glomerular Filt Rate > 60; Glucose 93 mg/dL (65-110); Lipase 86 U/L (23-300); Sodium 139 mmol/L (137-145)
== END 2024-02-15 13:20 | disposition home or self-care (01) ==
LOC: ANHLAB 03-08 13:19
PROVIDERS: PCP Internal Medicine; Visit Provider Internal Medicine
DX: R10.9 Unspecified abdominal pain (principal)
CPT/HCPCS: 36415; 80053; 81001; 82150; 83690; 85025

== ENCOUNTER 2024-02-15 14:08 | Emergency (ER) | payer BC, SELFPAY ==
[2024-02-15] VITALS (23 sets, daily range): BP systolic 93–112; BP diastolic 45–70; PULSE 64–87; RESP 8–22; TEMP 36.4; O2SAT 95–100
--- NOTE | ~2024-02-15 | CT_ITS ---
EXAMINATION: CT abdomen pelvis w con DATE: 02/15/2024 16:01 INDICATION: Postoperative abdominal pain TECHNIQUE: Computed tomography (CT) of the abdomen and pelvis was performed with 100 mL Omnipaque-350 intravenous contrast. Automated exposure control and iterative reconstruction technique were employe d. The dose-length product was 605.33 mGy-cm. COMPARISON: 01/31/2024 FINDINGS: Lung bases are clear. Heart size is normal. No pericardial or pleural effusion. Couple unchanged hepa tic cysts the larger hepatic lobe measuring 2.5 cm . Gallbladder, spleen, pancreas, bilateral adrenal glands and right kidney are normal. Couple unchanged small left renal cysts measuring up to 9 mm. Ti ny fat-containing umbilical hernia. There is a small gas and fluid collection along a midline supraum bilical laparoscopy port tract without significant surrounding stranding to suggest abscess. Moderate to large amount of colonic stool which could be seen with constipation. Small bowel and appendix are normal. Bladder is normal. The uterus and bilateral ovaries are not identified and have likely been surgically resected. Trace amount of free fluid in the deep pelvis. No abscess or free intraperitonea l gas. No pathologically enlarged abdominal or pelvic lymphadenopathy. Severe lumbosacral spondylosis with mild spondylosis and more cephalad lumbar and lower thoracic spine. IMPRESSION: 1. Postoperative changes of recent hysterectomy and bilateral oophorectomy with significant decrease in a now small amount of soft tissue gas along the anterior abdominal wall and small gas and fluid co llection at a supraumbilical midline laparoscopy port tract. 2. Moderate to large amount of stool throughout the colon. Correlate clinically for constipation. Reviewed, dictated and finalized at location A. IMPRESSION: 1. Postoperative changes of recent hysterectomy and bilateral oophorectomy with significant decrease in a now small amount of soft tissue gas along the anteri or abdominal wall and small gas and fluid collection at a supraumbilical midlin e laparoscopy port tract. 2. Moderate to large amount of stool throughout the colon. Correlate clinically for constipation.
--- NOTE | ~2024-02-15 | XR_ITS ---
XR chest 1V portable Ordering provider: Paras Vasquez MD History: 63 years Female with . dizziness . Comparison: None. FINDINGS: MEDIASTINUM: The cardiac silhouette is not enlarged. LUNGS: No infiltrates, effusions or pneumothorax. Prominent markings in the lower lobes. OTHER: No free air under the diaphragm. IMPRESSION: No acute cardiopulmonary pathology. Reviewed, dictated and finalized at location A.
--- NOTE | ~2024-02-15 | CT_ITS ---
EXAMINATION: CT brain wo con DATE: 02/15/2024 16:01 INDICATION: Dizziness TECHNIQUE: Computed tomography (CT) of the head was performed without intravenous contrast. Sagittal and coronal reconstructions were performed. The mA was adjusted according to patient size. Iterative reconstruction technique was employed. The dose-length product was 605.33 mGy-cm. COMPARISON: None FINDINGS: No acute intracranial hemorrhage, acute infarction or abnormal extra axial fluid collection. Ventricl es are normal and symmetric. No mass/mass effect. The orbits, paranasal sinuses and mastoid air cells are normal. IMPRESSION: 1. No acute intracranial process. Reviewed, dictated and finalized at location A.
--- NOTE | 2024-02-15 14:30 | ECG_ITS ---
Test Date: 2024-02-15 15:04:43 Measurements Intervals Brice Rate: 64 P: 69 W[place]: 154 QRS: 63 QRSD: 86 T: 55 QT: 384 QTc: 399 Interpretive Statements SINUS RHYTHM Compared to ECG 01/24/2024 13:27:43 No significant changes Electronically Signed On 02-16-2024 09:50:43 CDT by Ayo Hernandez M.D.
--- NOTE | 2024-02-15 14:30 | ED.DIZZY ---
HPI - Dizziness General Chief Complaint: Dizziness Stated Complaint: dizzy Time Seen by Provider: 02/15/24 14:29 Source: patient Mode of arrival: ambulatory Limitations: no limitations History of Present Illness HPI Narrative: PATIENT IS A STATUS POST VAGINAL HYSTERECTOMY AND BLADDER SLING 2 WEEKS AGO IN OUR FACILITY. PATIENT WAS STANDING TODAY FELL DIZZY AND LIKE GOING TO BLACK OUT SAT ON A CHAIR IMMEDIATELY WITH RECOVERY. PATIENT REPORTED ABDOMINAL PAIN STARTED COUPLE DAYS AGO DIFFERENT THAN HER POST HYSTERECTOMY PAIN. PATIENT IS TELLING ME SHE RAN OUT OF PAIN MEDICATION 8 DAYS AGO. PATIENT WAS STARTED ON METRONIDAZOLE FOR POSSIBLE BACTERIAL VAGINOSIS. SHE DENIES ANY FEVER, CHILLS, NAUSEA, VOMITING, VAGINAL BLEEDING OR DISCHARGE. Related Data Home Medications Medication Instructions Recorded Confirmed minerals 1 tablet PO DAILY 01/24/24 01/24/24 multivitamin 1 cap PO DAILY 01/24/24 01/24/24 potassium bicarb 500 mg-magnesium 1 g PO DAILY 01/24/24 01/24/24 300 mg/6.1 gram effervescent powder (Magnesium Fizz-Plus) Allergies Allergy/AdvReac Type Severity Reaction Status Date / Time nirmatrelvir [From Paxlovid] AdvReac Intermediate Anxiety, Verified 01/30/24 12:16 confusion oseltamivir [From Tamiflu] AdvReac Intermediate Unknown Verified 01/30/24 12:16 ritonavir [From Paxlovid] AdvReac Intermediate Anxiety, Verified 01/30/24 12:16 confusion Review of Systems Review of Systems: All systems reviewed & are unremarkable except as noted in HPI and below PMFSH Past Medical History Medical History Hypothyroidism Post-menopausal Stress incontinence Uterine prolapse Surgical History Surgical History History of bilateral salpingo-oophorectomy (01/30/24) History of hysterectomy, supracervical (01/30/24) History of midurethral sling procedure (01/30/24) History of sacrocolpopexy (01/30/24) History of tonsillectomy History of uterine suspension procedure Social History Social History Social History: Surrogate medical decision maker: Jessee Naranjoer, spouse. Code status: Full code. Smoking packs per day: 0.25 Smoking cigarettes per day: 5.0 Years smoked: 5 Smoking pack-years: 1.25 Smoking status: Former smoker Tobacco type: cigarettes Smoking end date: 11/01/97 Alcohol intake: current Alcohol use details: Perhaps 1 alcoholic beverage a month. Substance use: never Substance use type: does not use Living arrangements: with family Additional living arrangements comments: Lives with spouse. Spiritual care concerns: No Exam Narrative: GENERAL APPEARANCE: WELL-DEVELOPED, WELL-NOURISHED SKIN: NORMAL COLOR HEAD: NORMOCEPHALIC, NONTRAUMATIC EYES: CLEAR CONJUNCTIVA ENT: OROPHARYNX NORMAL, EARS NORMAL, NOSE NORMAL NECK: SUPPLE, NONTENDER CHEST AND RESPIRATORY: AIRWAY PATENT, NO RESPIRATORY DISTRESS, NO ACCESSORY MUSCLE USE HEART: REGULAR RATE/RHYTHM ABDOMEN: SOFT, SLIGHT DIFFUSE TENDERNESS AT THE SURGICAL WOUNDS WHICH IS DRY AND CLEAN, NO ORGANOMEGALY, QUIET BOWEL SOUNDS VASCULAR: NORMAL PERIPHERAL PULSES, NORMAL CAPILLARY REFILL. MUSCULOSKELETAL: NORMAL RANGE OF MOTION, NONTENDER BACK NEUROLOGIC: ALERT AND ORIENTED ?3, ASSOCIATE LOAN OFFICER IS NORMAL TESTED, NO GROSS MOTOR DEFICIT Course Consultations Consultation #1: DR BLEVINS AGREED WITH PLAN OF DISCHARGE HOME ON CIPRO ANTIBIOTIC Date: 02/15/24 Time: 17:24 Vital Signs Vital signs: Vital Signs Temperature 36.4 C L 02/15/24 14:16 Pulse Rate 65 02/15/24 14:16 Respiratory Rate 14 02/15/24
[2024-02-15 15:20] LABS: Basophils Absolute Auto 0.1 K/mm3 (0.0-0.1); Basophils Percent Auto 0.7 % (0.2-1.2); Eosinophils Absolute Auto 0.1 K/mm3 (0-0.3); Eosinophils Percent Auto 1.6 % (0-4.4); Hemoglobin 12.9 g/dL (12.0-15.0); Immature Granulocyte Absolute 0.03 K/mm3 (0.00-0.031); Immature Granulocyte Percent A 0.4 % (0-0.5); Lymphocytes Absolute Auto 1.83 K/mm3 (0.9-3.2); Mean Corpuscular HGB Conc 33.1 g/dl (32-36); Mean Corpuscular Hemoglobin 30.4 pg (26-34); Mean Corpuscular Volume 91.8 fl (80-100); Mean Platelet Volume 9.1 fl (7.4-10.4); Monocytes Absolute Auto 0.6 K/mm3 (0.1-0.6); Monocytes Percent Auto 7.9 % (2.6-8.5); Neutrophils Percent Auto 65.4 % (45.5-73.1); Platelet Count Result 322 k/mm3 (150-375); Red Blood Count 4.25 M/mm3 (4.2-5.4); Red Cell Distribution Width 12.8 % (11.5-14.5); White Blood Count 7.6 K/mm3 (4.5-10.0)
[2024-02-15 15:34] LABS: Add Urine Microscopic? YES; Appearance Urine Cloudy (Clear); Bacteria Urine None Seen /hpf; Bilirubin Urine Negative (Negative); Blood Urine Non-Hemolyzed Trace (Negative); Color Urine Yellow (Yellow); Glucose Urine UA Negative (Negative); Ketones Urine Negative (Negative); Leukocyte Esterase Ur 3+ LEU/UL (Negative); Need Manual Microscopic Reviewed; Nitrate Urine Negative (Negative); Protein Urine 1+ mg/dL (Negative); Specific Grav Ur 1.012 (1.001-1.035); Squamous Epithelial Cell Urine Few /hpf (Few); WBC Urine >100 /hpf (0-3)
[2024-02-15 15:35] LABS: Alanine Aminotransferase 17 U/L (6-35); Albumin Level 4.8 g/dL (3.5-5.1); Alkaline Phosphatase 52 U/L (38-126); Anion Gap 11 mmol/L (4-12); Aspartate Amino Transferase 30 U/L (14-36); Bilirubin,Total 0.6 mg/dL (0.2-1.3); Blood Urea Nitrogen 14 mg/dL (7-17); Calcium 9.2 mg/dL (8.4-10.2); Carbon Dioxide 28 mmol/L (22-30); Chloride 100 mmol/L (98-107); Estimated CRCL calculation 58 ml/min; Estimated Glomerular Filt Rate > 60; Glucose 113 mg/dL (65-110); Potassium 3.5 mmol/L (3.4-5.0); Sodium 139 mmol/L (137-145)
[2024-02-15 16:05] LABS: Prothrombin Time 13.5 Seconds (11.1-14.7)
[2024-02-15 16:06] LABS: Partial Thromboplastin Time 23.6 Seconds (22.3-36.8)
[2024-02-15] MEDS: SODIUM CHLORIDE 0.9% IV 1,000 ML 999 ML IV CONT ×2 (17:27)
== END 2024-02-15 19:17 | disposition home or self-care (01) ==
PROVIDERS: Emergency Provider Emergency Medicine; PCP Internal Medicine; Referring Provider Obstetrics & Gynecology
DX: N39.0 Urinary tract infection, site not specified (principal); K59.00 Constipation, unspecified; E03.9 Hypothyroidism, unspecified
CPT/HCPCS: 36415; 70450; 71045; 74177; 80053; 81001; 84443; 85025; 85610; 85730; 87086; 87088; 93005; 96361; 96365; 99284; J0696; J7030; Q9967

== ENCOUNTER 2024-03-08 12:34 | Outpatient (CLI) | payer BC, SELFPAY ==
[2024-03-08 13:32] LABS: Add Urine Microscopic? YES; Appearance Urine Clear (Clear); Bacteria Urine None Seen /hpf; Bilirubin Urine Negative (Negative); Blood Urine Negative (Negative); Color Urine Yellow (Yellow); Glucose Urine UA Negative (Negative); Ketones Urine Negative (Negative); Leukocyte Esterase Ur Trace LEU/UL (Negative); Nitrate Urine Negative (Negative); Non Pathogenic Casts 0-2; Protein Urine Negative (Negative); RBC Urine 0-2 /hpf (0-2); Squamous Epithelial Cell Urine None Seen /hpf (Few); Urobilinogen Urine 0.2 mg/dL (<2.0); WBC Urine 0-5 /hpf (0-3)
== END 2024-03-08 12:35 | disposition home or self-care (01) ==
LOC: ANHLAB 12:36
PROVIDERS: PCP Internal Medicine; Visit Provider Internal Medicine
DX: N39.0 Urinary tract infection, site not specified (principal)
CPT/HCPCS: 81001

== ENCOUNTER 2024-05-30 14:03 | Outpatient (CLI) | payer BC, SELFPAY ==
[2024-05-30 15:56] LABS: Alanine Aminotransferase 22 U/L (6-35); Albumin Level 4.8 g/dL (3.5-5.1); Alkaline Phosphatase 55 U/L (38-126); Aspartate Amino Transferase 31 U/L (14-36); Blood Urea Nitrogen 13 mg/dL (7-17); Calcium 9.2 mg/dL (8.4-10.2)
[2024-05-30 15:57] LABS: Anion Gap 5 mmol/L (4-12); Bilirubin,Total 0.7 mg/dL (0.2-1.3); Carbon Dioxide 30 mmol/L (22-30); Chloride 102 mmol/L (98-107); Estimated Glomerular Filt Rate > 60; Glucose 89 mg/dL (65-110); Potassium 3.8 mmol/L (3.4-5.0); Sodium 137 mmol/L (137-145); Triglycerides 95 mg/dL (<150)
[2024-05-30 16:02] LABS: Cholesterol 369 mg/dL (0-200); HDL Direct 126 mg/dL; LDL Cholesterol Direct 164 mg/dL
== END 2024-05-30 14:04 | disposition home or self-care (01) ==
LOC: ANHLAB 14:05
PROVIDERS: PCP Internal Medicine; Visit Provider Internal Medicine
DX: Z00.00 Encounter for general adult medical examination without abnormal findings (principal); E78.5 Hyperlipidemia, unspecified; Z86.39 Personal history of other endocrine, nutritional and metabolic disease; E55.9 Vitamin D deficiency, unspecified
CPT/HCPCS: 36415; 80053; 80061; 82306; 84443

== ENCOUNTER 2024-08-20 21:07 | Emergency (ER) | payer BC, SELFPAY ==
--- NOTE | ~2024-08-20 | XR_ITS ---
EXAM: XR ankle LT min 3V DATE: 08/20/2024 22:06 HISTORY: fall, pain . COMPARISON: None available. FINDINGS: Normal mineralization. No fracture or dislocation. No lytic or blastic lesion. Joint space s are maintained. No erosion or periosteal change. Soft tissues within normal limits. IMPRESSION: No acute osseous finding the left ankle. Reviewed, dictated and finalized at location K. NOMIST
--- NOTE | ~2024-08-20 | CT_ITS ---
EXAMINATION: CT cervical spine wo con DATE: 08/20/2024 22:14 INDICATION: fall, pain TECHNIQUE: Computed tomography (CT) of the cervical spine was performed without intravenous contrast. Automated exposure control and iterative reconstruction technique were employed. The dose-length pro duct was 220.43 mGy-cm. COMPARISON: None. FINDINGS: Vertebral Body Alignment: Reversed lordosis. 3 mm anterolisthesis at C4-5, presumably on a degenerati ve basis. Craniocervical and atlantoaxial alignment: Mild degenerative change. Alignment intact. Osseous structures/fracture: No evidence of a lytic or blastic process in the visualized spine. No e vidence of acute fracture. Bilateral C2-3 facet fusion. Cervical soft tissues: The paraspinal soft tissues planes are maintained. Biapical pleural scarring. Degenerative changes: Degenerative changes, without severe neural foraminal or central canal narrowin g. IMPRESSION: No acute fracture or traumatic malalignment in the cervical spine. Reviewed, dictated and finalized at location K. [place] OPERATIONS SPECIALIST
--- NOTE | ~2024-08-20 | CT_ITS ---
EXAMINATION: CT brain wo con DATE: 08/20/2024 22:13 INDICATION: fall, pain . TECHNIQUE: Computed tomography (CT) of the head was performed without intravenous contrast. The mA wa s adjusted according to patient size. Iterative reconstruction technique was employed. The dose-lengt h product was 681.00 mGy-cm. COMPARISON: 02/15/2024. FINDINGS: No acute intracranial hemorrhage or extra-axial fluid collection. No hydrocephalus, mass, or herniation. No acute ischemic infarct. Unremarkable dural venous sinus attenuation. No acute osseous abnormality. The aerated spaces are clear. IMPRESSION: No acute intracranial process. Reviewed, dictated and finalized at location K. FILE OPERATOR
--- NOTE | ~2024-08-20 | XR_ITS ---
EXAM: XR lumbar spine 2-3V DATE: 08/20/2024 22:06 HISTORY: fall, pain . COMPARISON: 05/27/2023. FINDINGS: 5 nonrib-bearing lumbar-type vertebral bodies. Pedicles intact. Normal vertebral body alig nment. Vertebral body heights preserved. Severe degenerative disc disease at L5-S1. Moderate facet ar thropathy in the lower lumbar spine. No fracture or dislocation. IMPRESSION: No acute fracture or traumatic malalignment detected in the lumbar spine. Reviewed, dictated and finalized at location K. IOLOGY ASSOCIATE
--- NOTE | ~2024-08-20 | XR_ITS ---
EXAM: XR knee RT 3V DATE: 08/20/2024 22:06 HISTORY: FELL DOWN STAIRS THIS MORNING . COMPARISON: 05/13/2022. FINDINGS: Osteopenia. No fracture or dislocation. No lytic or blastic lesion. Mild osteoarthritis. N o erosion or periosteal change. Small stable joint effusion. Soft tissues within normal limits. IMPRESSION: No acute osseous finding in the right knee. Reviewed, dictated and finalized at location K. E BOLT EQUALIZER
--- OUTSIDE RECORDS SUMMARY | 2024-08-20 21:10 | XMS_ITS | Data Portability ---
Author Organization [facility] Address [address] [place] [address] Care Team Providers Care Coat Check Attendant Name Role Phone SHELLI SABA Primary Care Provider [phone] Assessment No assessment recorded. Plan of Treatment Reminders Order Date Submit Date Provider Last Modified By Organization Details Last Modified Time Details Appointments [facility] 2024 01:15P Rayne HACKETT MD Not available Not available Not available Lab culture, urine 2023 024 [facility] (Lab), [address] [facility] [address], [place], [address], 03/08/2024 04:03:11 urinalysi s, dipstick 2023 024 [email or web address] [place], [facility] [address], [place], [address], 03/06/2024 12:03:05 bacterial vaginosis + vaginitis panel, vaginal 2023 024 [facility] (Lab), [address], [place], [address], 03/08/2024 04:03:10 Referral None recorded. Procedures None recorded. Surgeries None recorded. Imaging None recorded. Medication Orders metronida zole 0.75 % (37.5 mg/5 gram) vaginal gel 2023 024 [facility] #[id number], [address] [place], [address], 03/28/2024 21:35:10 metronida zole 0.75 % (37.5 mg/5 gram) vaginal gel 2023 024 [facility] #[id number], [address] [place], [address], 03/06/2024 12:05:46 metronida zole 500 mg tablet 2023 024 [id number], [address], [place], [id number], 03/28/2024 14:43:22 Patient TargetsNo targets recorded. Patient InstructionsNo instructions recorded. Reason for Referral None Reported. Results Created Date Observation Date Name Description Value Unit Range Abnormal Flag Note LastModifiedBy Organization Detail LastModifiedTime 01/12/2001/12/2024 PT / PTT APTT 30.7 secon ds 24.8-3 8.4 Not Available [facility] (Lab) [address] [place], [address], 01/19/2024 22:47:53 01/12/20 24 01/12/2024 PT / PTT prothrombin time (PT) 11.1 secon ds 10.5-1 3.5 Not Available [facility] (Lab) [address] [place], [address], 01/19/2024 22:47:53 01/12/20 24 01/12/2024 PT / PTT INR 1.0 . 0.8-1. 2 INR shoul d be used to monit or warfa rin thera py. Not Available [facility] (Lab) [address], [place], [address], 01/19/2024 22:47:53 01/12/20 24 01/12/2024 FIBRI NOGEN fibrinogen 225 mg/dL 204-39 0 NOTE: Argra troba n and other throm bin inhib itors will false ly decre ase the fibri nogen lopez ntrat ion measu red by this funct ional fibri nogen assay . A fibri nogen antig en assay is the recom rajeev d test to measu re fibri nogen lopez ntrat ion if the patie nt is on a throm bin inhib itor. Not Available [facility] (Lab) [address], [place], [address], 01/19/2024 22:47:54 01/12/20 24 01/12/2024 HOMOC YSTEI NE homocysteine 11.54 umol/ L 0.00-1 5.00 Not Available [facility] (Lab) [address], [place], [address], 01/19/2024 22:47:54 01/12/20 24 01/12/2024 LUPUS ANTIC OAGUL ANT EVALU ATION lupus anticoagulan t Negati ve negati ve Not Available [facility] (Lab) [address], [place], [address], 01/19/2024 22:47:55 01/12/20 24 01/12/2024 LUPUS ANTIC OAGUL ANT EVALU ATION prothrombin time (PT) 11.1 secon ds 10.5-1 3.5 Not Available [facility] (Lab) [address], [place], [address], 01/19/2024 22:47:55 01/12/20 24 01/12/2024 LUPUS ANTIC OAGUL ANT EVALU ATION INR 1.0 . 0.8-1. 2 Not Available [facility] (Lab) [address], [place], [address], 01/19/2024 22:47:55 01/12/20 24 01/12/2024 LUPUS ANTIC OAGUL ANT EVALU ATION APTT 29.4 secon ds 24.8-3 8.4 Not Available [facility] (Lab) [address], [place], [address], 01/19/2024 22:47:55 01/12/20 24 01/12/2024 LUPUS ANTIC OAGUL ANT EVALU ATION thrombin time 14.7 secon ds 11.5-1 6.5 Not Available [facility] (Lab) [address] [place], [address], 01/19/2024 22:47:55 01/12/20 24 01/12/2024 LUPUS ANTIC OAGUL ANT EVALU ATION dilute mai viper venom time (drvvt) test ratio 1.00 ratio <=1.19 Not Available [facility] (Lab) [address], [place], [address], 01/19/2024 22:47:55 01/12/20 24 01/12/2024 LUPUS ANTIC OAGUL ANT EVALU ATION silica clotting time (sct) test ratio 0.95 ratio <=1.16 Not Available [facility] (Lab) [address] [place], [address], 01/19/2024 22:47:55 01/12/20 24 01/12/2024 LUPUS ANTIC OAGUL ANT INTER PRETA TION lupus anticoagulan t interpretati on A lupus antico agulan t is not detect ed. Inter prete d By: Elysia diaz MD 2023 09:45 1. Negat alverto resul ts do not rule out the prese nce of lupus antic oagul ant due to the limit ation of DRVVT and SCT senst iviti es. 2. Posit alverto resul ts may confi rm the prese nce of lupus antic oagul ant but also may occur in cases with certa in inter ferin g subst ances such as antic oagul ant thera py. 3. Clini my histo ry as well as other lab resul ts must be caref ully evalu ated befor e makin g a diagn osis. 4. If the Lupus Evalu ation is negat alverto, and PTT or PT are prolo nged, mixin g studi es shoul d be sough t to inves tigat e facto r defic ienci es or inhib itors . If mixin g studi es are still prolo nged, it may indic ate the prese nce of an inhib itor other than lupus antic oagul ent, or it may sugge st false negat alverto lupus antic oagul ant resul ts. Not Available [facility] (Lab) [address], [place], [address], 01/19/2024 22:47:55 01/12/20 24 01/12/2024 FACTO R V (LEID EN) MUTAT ION factor V leiden Normal normal Facto r V Leide n (G169 1A) Mutat ion Absen t (Homo zygou s Wild Type) Venou s throm bosis is often a multi facto rial condi tion cause d by a combi natio n of james ic, acqui red or envir onmen heena influ ences . Other cause s may inclu de Facto r II (prot hromb in G2021 0A) mutat ion, prote in C defic iency , prote in S defic iency , antit hromb in III defic iency , antic ardio lipin antib odies , lupus antic oagul ant, hyper homoc ystei nemia , or oral contr acept libertad. Recom mend appro priat e testi ng to rule out these condi tions , as clini telma indic ated. Metho d Descr iptio n The Cephe id GeneX pert Assay gisela zes DNA in whole blood by integ ratin g sampl e purif icati on, nucle ic acid ampli ficat ion, and detec tion of the targe t seque nce using real- time Polym erase Chain React ion (PCR) . Inter prete d By: Elysia diaz MD 2023 10:26 Not Available [facility] (Lab) [address], [place], [address], 01/19/2024 22:47:55 01/12/20 24 01/12/2024 CARDI OLIPI N IGG/I GM ANTIB ODIES cardiolipin IgG <1.6 gpl_U /mL 0.0-19 .9 Not Available [facility] (Lab) [address] [facility] [address], [place], [address], 01/19/2024 22:47:56 01/12/20 24 01/12/2024 CARDI OLIPI N IGG/I GM ANTIB ODIES cardiolipin IgG, qual Negati ve negati ve Not Available [facility] (Lab) [address] [place], [address], 01/19/2024 22:47:56 01/12/20 24 01/12/2024 CARDI OLIPI N IGG/I GM ANTIB ODIES cardiolipin IgM 2.4 mpl_U /mL 0.0-19 .9 Not Available [facility] (Lab) [address], [place], [address], 01/19/2024 22:47:56 01/12/20 24 01/12/2024 CARDI OLIPI N IGG/I GM ANTIB ODIES cardiolipin IgM, qual Negati ve negati ve Not Available [facility] (Lab) [address], [place], [address], 01/19/2024 22:47:56 01/12/20 24 01/12/2024 FACTO R II, ACTIV ITY factor II activity 117 % 70-148 Not Available [facility] (Lab) [address] [place], [address], 01/19/2024 22:47:56 01/12/20 24 01/12/2024 PROTE IN C ACTIV ITY REFLE X TO PROTE IN C ANTIG EN protein C activity 132 % 70-140 Prote in C level s are low in neona odalys and infan ts and incre ase to adult level s durin g adole scenc eChester Miranda, Comp P. Labor atory Issue s in Diagn osing Abnor malit ies of Prote in C, Throm bomod ulin, and Endot yudy l Cell Prote in C Custodial Operations Manager tor, Arch Patho l Lab med 2002; 126:1 337-1 348. Not Available [facility] (Lab) [address] [place] [facility] [place], [address], 01/19/2024 22:47:57 01/12/20 24 01/12/2024 PROTE IN S ACTIV ITY REFLE X TO PROTE IN S ANTIG EN protein S activity 120 % 63-149 Age and Hormo nal statu s may affec t the tawana l range for femal es. Liber ti G, Berti na RM, Escobar hubbard FR. Hormo nal State rathe r than Age Influ ences Cut-o ff Value s of Prote in S: Reval uatio n of the Throm botic Risk Assoc iated with Prote in S Defic iency , Throm b. [address]. 1999; 82: 1093- 1096. Not Available [facility] (Lab) [address], [place], [address], 01/19/2024 22:47:57 01/12/20 24 01/12/2024 METHY DAVID TETRA HYDRO FOLAT E REDUC TASE (MTHF R) mthfr POSITI VE RESUL T: POSIT ALVERTO FOR ONE COPY OF THE C677T VARIA NT Not Available [facility] (Lab) [address] [place], [address], 01/19/2024 22:47:58 01/12/20 24 01/12/2024 METHY DAVID TETRA HYDRO FOLAT E REDUC TASE (MTHF R) interpretati on See Below INTER PRETA TION: This indiv idual is heter ozygo us for the C677T varia nt and negat alverto (norm al) for the A1298 C varia nt in the MTHFR gene. This resul t is not assoc iated with a signi fican tly incre ased risk for the coron gustavo arter y disea se, venou s throm boemb olism , or adver se pregn monique outco me. Labor atory testi ng super vised and resul ts monit ored by Maxime Kebede, Ph.D. , FACMG , HCLD, CGMB. Reduc ed methy lenet etrah ydrof olate reduc tase (MTHF R) enzym e activ ity is a james ic risk facto r for hyper homoc ystei nemia , espec ially when prese nt with low serum folat e level s. Two commo n varia nts in the MTHFR gene resul t in reduc ed enzym e activ ity. The ther molab ile varia nt C677T [[place] [address] 7.3: c.665 C>T (p.A2 22V)] and A1298 C [c. 1286A >C (p.E4 29A)] occur frequ ently in the gener al popul ation . Mild to moder ate hyper homoc ystei nemia has been ident ified as a risk facto r for coron gustavo arter y disea se and venou s throm boemb olism . Hyper homoc ystei nemia is multi facto rial, invol ving a combi natio n of james ic, physi ologi c and envir onmen heena facto rs. Recen t studi es do not suppo rt the previ ously descr ibed assoc iatio n of incre ased risk for coron gustavo arter y disea se and venou s throm boemb olism with mild hyper homoc ystei nemia cause d by reduc ed MTHFR activ ity. There fore, the utili ty of MTHFR varia nt testi ng is uncer tain and is not recom rajeev d by The Ameri can Colle ge of Medic al James ics and Genom ics (ACMG ) or the Ameri can Congr ess of Obste trici ans and Gynec ologi sts (ACOG ) in the evalu ation of venou s throm boemb olism or adver se pregn monique outco me. Modes t posit alverto assoc iatio n has also been found betwe en the ther molab ile varia nt of the MTHFR gene and many other medic al compl icati ons, such as recur rent pregn monique loss, risk of offsp ring with neura l tube defec ts, neuro psych iatri c disea se, and chemo thera py toxic ity. Incre ased risk of coron gustavo arter y disea se, venou s throm boemb olism and incre ased plasm a homoc ystei ne can be cause d by a varie ty of james ic and non-g eneti c facto rs not scree kevin for by this assay . If indic ated by perso nal or famil y histo ry of throm boemb olism , consi cindy addit ional testi ng such as plasm a homoc ystei ne level s, facto r V Leide n and proth rombi n gene mutat ions. The C677T and A1298 C varia nts are detec kay by ampli ficat ion of the selec kay regio ns of the MTHFR gene by polym erase chain react ion (PCR) and fluor escen t probe s hybri dizat ion to the targe kay regio ns, follo wed by melti ng curve gisela sis with a real time PCR syste m. Altho ugh rare, false posit alverto or false negat alverto resul ts may occur . All resul ts shoul d be inter prete d in alfonso xt of clini my findi ngs, relev ant histo ry, and other labor atory data. Healt h care provi jero, ashley e conta ct your local [facility] [employer] [facility] 's james ic couns elor or call [phone]) for mickey tance with inter preta tion of these resul ts. For addit ional infor ashley azar e refer to http: //chris bernal.Que stDia gnost ics.c om/fa q/FAQ 66 (This link is being provi ded for infor matio nal/e ducat ional purpo ses only. ) This test was devel oped and its gisela tical perfo rmanc e ellie cteri stics have been deter mined by [employer] [facility] [employer] . It has not been clear ed or appro elsi by the U.S. Food and Drug Admin istra tion. This assay has been valid ated pursu ant to the CLIA regul ation s and is used for clini my purpo ses. Perfo rming Organ izati on Infor george bernal: Site ID: [id number] Name: [facility]/Taran rashaun [facility] [employer] , Addre ss: [id number] [address] [facility] [place] [address] Direc tor: Patti bateman MD,Ph D,KEISHA Not Available [facility] (Lab) [address] [place], [address], 01/19/2024 22:47:58 03/06/20 24 03/06/2024 VAGIN ITIS/ VAGIN OSIS, DNA PROBE eloisa sp. detection, direct probe Negati ve negati ve Not Available [facility] (Lab) [address] [place], [address], 03/08/2024 04:03:08 03/06/20 24 03/06/2024 VAGIN ITIS/ VAGIN OSIS, DNA PROBE gardnerella vag. detection, direct probe Negati ve negati ve Not Available [facility] (Lab) [address] [place], [address], 03/08/2024 04:03:08 03/06/20 24 03/06/2024 VAGIN ITIS/ VAGIN OSIS, DNA PROBE trichomonas vag. detection, direct probe Negati ve negati ve Not Available [facility] (Lab) [address] [place], [address], 03/08/2024 04:03:08 03/06/20 24 03/06/2024 CULTU RE: URINE result report SEE RESULT S BELOW Test: Cultu re: Urine Speci men Sourc e: Urine - Clean Catch Speci men Type: Urine Speci men Date: 024 1150 Resul t Date: 024 0259 Resul t Statu s: Final resul t Abnor mal: No Resul ting Lab: [facility] [address] [facility] [address] Tel: CULTU RE ----- ----- ----- --- No growt h in 1 day (dete ction level of 10,00 0 colon ies / ml.) Not Available [facility] (Lab) [address] [place], [address], 03/08/2024 04:03:11 01/31/20 24 01/31/2024 CT, abdom en + pelvi s, w/ contr ast No observ ation record ed. [address], [place], [address], 01/31/2024 22:52:55 Result Notes None recorded. Procedures Surgical History Date Name Laterality Status Provider Name and Address Organization Details Recorded Time 01/30/20 24 Total Hysterectomy completed Whitney Cadena [facility] 02/06/2024 12:01:21 11/12/19 24 Pessary Insertion completed Rex Hackett MD [address], [place], [address], [facility] 11/12/2023 13:29:08 09/13/19 24 Date of Last Mammogram completed Whitney Cadena [facility] 11/12/2023 10:38:03 06/09/20 23 Date of Last Pap Smear completed Whitneylesly Cadena [facility] 09/12/2023 10:20:26 05/28/20 23 Most Recent Bone Density completed Rosamaria [facility] 06/09/2023 15:42:04 04/14/[address] [facility] 06/09/2023 15:42:04 04/14/20 13 Date of Last Colonoscopy completed Rosamaria [facility] 06/09/2023 15:42:04 04/14/20 13 Colonoscopy completed Whitneylesly Cadena [facility] 09/12/2023 10:22:07 07/04/18 98 Tubal Ligation completed Whitneylesly Cadena [facility] 09/12/2023 11:23:45 07/04/18 90 operation on uterus completed Whitney Cadena [facility] 09/12/2023 11:25:07 07/04/18 87 Laparoscopy completed Whitneylesly Cadena [facility] 09/12/2023 11:23:39 07/04/18 67 tonsilectomy/snehal noids completed Whitneylesly Cadena [facility] 09/12/2023 11:23:53 Imaging Results Imaging Date Name Status LastModified by Organiz ation Details LastModified Time 01/31/2024 CT, abdomen + pelvis, w/ contrast completed [address], [place], [address], 01/31/2024 22:52:55 Procedure Notes None recorded. Medical Equipment None Reported. Allergies Allergen ID Allergen Name Allergen Category Reaction Reaction Severity Criticality Documentation Date Start Date Code Code System Note Provider Name and Address Organization Details Recorded Time 77392 metronida zole medicatio n Not available Not available Not available 03/06/2024 6922 RxNorm Tesha Etta tomlinson, [facility] 09:52:40 Medications Name Sig Start Date Stop Date Status Note LastModified by Organization Details LastModified Time cyclobenzap rine 10 mg tablet Take 1 tablet 3 times a day by oral route for 5 days. 2024 active Not Available Not Available Not Avai lable hydrocodone 5 mg-acetamin ophen 325 mg tablet TAKE 1 TABLET BY MOUTH EVERY 6 HOURS NEEDED FOR PAIN 02/12 completed Not Available Not Available Not Available metronidazo le 0.75 % (37.5 mg/5 gram) vaginal gel INSERT 1 APPLICATO RFUL VAGINALLY EVERY DAY AT BEDTIME FOR 5 DAYS active Not Available Not Available No t Available prednisone 20 mg tablet TAKE 2 TABLETS BY MOUTH EVERY DAY FOR 5 DAYS 06/09 completed Not Available Not Available Not Available metronidazo le 500 mg tablet TAKE 1 TABLET BY MOUTH EVERY 8 HOURS 03/28 completed Not Available Not Available Not Available valacyclovi r 500 mg tablet TAKE 1 TABLET BY MOUTH TWICE DAILY FOR 3 DAYS NEEDED FOR OUTBREAK active Not Available Not Available No t Available ciprofloxac in 500 mg tablet TAKE 1 TABLET BY MOUTH EVERY 12 HOURS 03/28 completed Not Available Not Available Not Available oxycodone-a cetaminophe n 5 mg-325 mg tablet TAKE 1 TABLET BY MOUTH EVERY 6 HOURS 03/28 completed Not Available Not Available Not Available estradiol 1 mg tablet Take 1 tablet every day by oral route. active Not Available Not Available No t Available triamcinolo ne acetonide 0.1 % topical ointment 06/09 completed Not Available Not Available Not Available docusate sodium 100 mg capsule TAKE 1 CAPSULE BY MOUTH TWICE DAILY 03/28 completed Not Available Not Available Not Available clindamycin 2 % vaginal cream INSERT 1 APPLICATO RFUL VAGINALLY EVERY DAY FOR 5 DAYS active Not Available Not Available No t Available lorazepam 1 mg tablet TAKE 1 TABLET BY MOUTH 1 HOUR BEFORE THE MRI 09/11 completed Not Available Not Available Not Available polyethylen e glycol 3350 17 gram/dose oral powder 02/12 completed Not Available Not Available Not Available methylpredn isolone 4 mg tablets in a dose pack FOLLOW PACKAGE DIRECTION S 06/09 completed Not Available Not Available Not Available progesteron e micronized 100 mg capsule TAKE 1 CAPSULE BY MOUTH EVERY NIGHT AT BEDTIME active Not Available Not Available No t Available ezetimibe 10 mg tablet TAKE 1 TABLET BY MOUTH DAILY 09/11 completed Not Available Not Available Not Available Children's Cetirizine 10 mg chewable tablet 09/11 completed Not Available Not Available Not Available 24 Hour Allergy Relief active Not Available Not Available Not Available Vitals Date Recorded Body height Body mass index (BMI) Body weight Systolic blood pressure Diastolic blood pressure Provider Name and Address Organization Details Last Updated DateTime 01/23/2024 158.75 cm 24.8 kg/m2 51168.75 g 126 mm[Hg] 77 mm[Hg] Mile Cantrell [facility] 11:47:08 Date Recorded Body height Body mass index (BMI) Body weight Systolic blood pressure Diastolic blood pressure Provider Name and Address Organization Details Last Updated DateTime 02/06/2024 158.75 cm 25.2 kg/m2 82434.93 g 112 mm[Hg] 73 mm[Hg] Whitney Cadena [facility] 4 11:59:37 Date Recorded Body height Body mass index (BMI) Body weight Systolic blood pressure Diastolic blood pressure Provider Name and Address Organization Details Last Updated DateTime 02/13/2024 158.75 cm 25.4 kg/m2 52307.52 g 120 mm[Hg] 80 mm[Hg] Mile [facility] 4 15:28:34 Date Recorded Body height Provider Name an d Address Organization Details Last Updated DateTime 03/06/2024 158.75 cm [facility] 03/06/2024 12:02:12 Date Recorded Body height Body mass index (BMI) Body weight Systolic blood pressure Diastolic blood pressure Provider Name and Address Organization Details Last Updated DateTime 03/28/2024 158.75 cm 25.4 kg/m2 49595.52 g 136 mm[Hg] 76 mm[Hg] [facility] 14:41:56 Social History Question Answer Notes LastModified by Organizat ion Details LastModified Time Tobacco Smoking Status Former [facility] 1997 [facility] 09/12/2023 11:23:14 Do You Have An Advance Directive? Yes Information not available 03/28/2024 What Is Your Level Of Alcohol Consumption? Occasional [email or web address] Information not available 09/12/2023 Are You Blind Or Do You Have Difficulty Seeing? No Information not available 06/09/2023 What Is Your Level Of Caffeine Consumption? Moderate Information not available 06/09/2023 How Much Tobacco Do You Chew? None Information not available 06/09/2023 In The 14 Days Before Symptom Onset, Have You Had Close Contact With A Laboratory-confir med COVID-19 While That Case Was Ill? No Information not available 06/09/2023 In The 14 Days Before Symptom Onset, Have You Had Close Contact With A Person Who Is Under Investigation For COVID-19 While That Person Was Ill? No Information not available 06/09/2023 Have You Been To An Area Known To Be High Risk For COVID-19? No Information not available 06/09/2023 Are You Deaf Or Do You Have Serious Difficulty Hearing? No Information not available 06/09/2023 What Type Of Diet Are You Following? SPECIFIC Information not available 06/09/2023 What Is The Highest Grade Or Level Of School You Have Completed Or The Highest Degree You Have Received? 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 No Information not available 06/09/2023 Have You Ever Been Counseled For Unhealthy Alcohol Use? No [email or web address] Information not available 09/12/2023 Do You Use Protection During Sex? No Information not available 06/09/2023 Do You Use Your Seat Belt Or Car Seat Routinely? Yes Information not available 06/09/2023 Do You Have Smoke And Carbon Monoxide Detectors In Your Home? Yes Information not available 06/09/2023 How Much Tobacco Do You Smoke? No Information not available 06/09/2023 Do You Feel Stressed (tense, Restless, Nervous, Or Anxious, Or Unable To Sleep At Night)? [id number] Information not available 06/09/2023 Do You Use Any Illicit Or Recreational Drugs? No Information not available 06/09/2023 Do You Use Sunscreen Routinely? Yes [email or web address] Information not available 11/12/2023 Has Tobacco Cessation Counseling Been Provided? No [email or web address] Information not available 09/12/2023 Have You Used IV Drugs? No Information not available 06/09/2023 Do You Or Have You Ever Used Any Other Forms Of Tobacco Or Nicotine? No [email or web address] Information not available 09/12/2023 Sex: Unknown Functional Status Question Answer Note LastModified by Organizat ion Details LastModified Time Do you have difficulty walking or climbing stairs? No [email or web address] Information not available 09/12/2023 Are you able to walk? [email or web address] Information not available 06/09/2023 Are you able to care for yourself? Yes [email or web address] Information not available 09/12/2023 Do you have difficulty dressing or bathing? No [email or web address] Information not available 09/12/2023 What is your exercise level? Moderate Information not available 01/23/2024 Mental Status None recorded. Family History Relationship Description Onset Age of this Age Resolved Age Notes LastModified by Organization Details LastModified Time Mother Depressive disorder [email or web address] Not available 02/05 11:59:57 Mother Blood coagulation disorder [email or web address] Not available 02/05 11:59:57 Medical History Condition Response Allergies (Food, seasonal, environmental ) Y Other Y Breast Cancer N Drug/Latex Allergies/Reactions N Blood Transfusion N Dermatologic Disorders N Lung Disease N Defects or Inherited Disease N Breast Problem N Gestational Diabetes N Hematologic disorders N Anesthesia Complications N History of STI Y Deep Vein Thrombosis N Polycystic ovary syndrome N Anxiety Disorder Y Autoimmune disease N Arthritis Y Infertility N Polyps N Acid Reflux (GERD) N History of abnormal pap N Cancer N Stroke N Varicosities Y Neurologic/Epilepsy N Endometriosis N High Cholesterol Y Headaches N Fibromyalgia N Kidney Disease N Heart Problems N Kidney or Bladder Problems Y Thyroid Problems N GI Problems N Eating Disorder N Anemia N Art (IVF or FET) N Psychiatric Illness N Ovarian Cancer N Diabetes N Pulmonary (TB, Asthma) N Hepatitis/Liver Disease N No Past Medical History N Eczema N Urinary Tract Infection N Abuse/Domestic Violence N Asthma N Trauma/Violence N Depression/ depression N Heart Disease N Pre-Eclampsia N Hypertension N Osteoporosis Y Thrombophilias N Gynecological History Statement/Question Response Date of Last Mammogram 09/13/2023 Date of LMP 07/04/2011 N Was last menstrual period normal Y STIs/STDs N If Post Menopausal, Age at Menopause 52 Date of control 01/01/1998 Date of Last Colonoscopy 2013 Desired Control Method Hysterectom y On BCP's at Conception? N HPV Vaccine N Duration of Flow (days) 7 Current Control Method Tubal Ligat ion Age at First Child 22 Frequency of Cycle (Q days) 28 Most Recent Bone Density 05/28/2023 Sexually Active? N Menses Monthly N Date of DEXA bone scan 05/28/2023 Age of first menstrual cycle 13 Date of Last Pap Smear 06/09/2023 Sexual Problems? N LMP Definite 2013 Y Obstetrics History GPAL:G 2 P 2 0 0 2 Type Value Full Term 2 Living 2 Total 2 Past Encounters Encounter ID Performer Location Encounter Start Date Encounter Closed Date Diagnosis/Indication Diagnosis SNOMED-CT Code Diagnosis ICD10 Code Diagnosis Note [id number] [facility] [address] [address] 06/09/2023 15:35:25 06/09/2023 16:55:52 Gynecologic examination 64808191 Z01.419 WWEpostmen opausalpap updatedSTI testing declinedma mmogram order givencolon oscopy & dexa UTD (PCP)RTC in 1 yr or sooner if needed Take Calcium with Vitamin D daily. Do monthly self breast exams. It is advised to get annual flu shot in the fall and she could obtain at [facility] or [facility] care clinic. If you haven't received the Tdap vaccine in the last 10 years you should obtain one as well. Have mammogram yearly, bone density every 2-3 years and colonoscop y every 5-10 years depending on findings and history. Engage in daily exercise of low impact aerobic exercise 45-60 minutes 4-5 times weekly. Avoid tobacco and illicit drugs. This lifestyle behavior pattern will lead to less health conditions and longer life span. If BMI greater than 25 dietary consult advised. Questions have been answered. Patient appears to understand instructio ns, but if you have any further questions call or respond to this email Screening for malignant neoplasm of breast [id number] Z12.39 [id number] Rex Hackett MD [facility] [address] [address] 09/12/2023 10:58:36 09/12/2023 12:14:23 Atrophic vulvovaginitis 99407131 N95.2 Prolapse o f female genital organs 19719339 N81.9 63-year-ol d female who presents with complaints uterine prolapse. Patient has a circular firm bulge at the introitus. It has been present for some times. She reports symptoms of urge incontinen ce as well. She states that the prolapse becomes dry at times. It is irritating . She has some vulvovagin itis /atrophic vulvovagin itis. She states the thin skin on the vulva and becomes irritated easily. We spent over 40 minutes face-to-fa ce. We made a decision to perform surgery. To see Urogynecol sarah. Half of our time/ 50% of our time was counseling . Talked about hormone replacemen t therapy. We talked about the risks, benefits, and alternativ es. We talked about the subtle difference s in various hormone replacemen t therapy routines. She will be prescribed estradiol 1 mg daily. She will also get progestero ne should she start bleeding before her surgery. [id number] Rex Hackett MD [facility] [address],[place] [address] 11/12/2023 10:15:26 11/14/2023 02:01:26 Prolapse of female genital organs 36024983 N81.9 pessary was inserted without complicati ons. She tolerated it well. She will follow-up in 2 months. [id number] Rex Hackett MD [facility] [address],[place] [address] 01/23/2024 11:42:24 01/23/2024 15:06:03 Prolapse of female genital organs 53075636 N81.9 63-year-ol d female with pelvic organ prolapse. We have agreed to perform robotic assisted total hysterecto my with bilateral salpingo-o ophorectom y. This will be in conjunctio n with Dr. Grider who will perform robotic sacral spinous ligament fixation. The patient understand s the risks, benefits, and alternativ es. She has completed the informed consent process and is ready to proceed. [id number] Rex Hackett MD [facility] [address],[place] [address] 02/06/2024 11:35:30 02/06/2024 12:43:01 Postoperative care [id number] Z48.89 female Patient presents for postop follow-up. She is 1 week postop from a Robotic assisted supracervi my hysterecto myy. She has no complaints . Her incisions are clean dry and intact. She is recovering normally. She will follow-up as needed. Rex Hackett MD [facility] [address],[place] [address] 02/13/2024 15:01:38 02/13/2024 16:21:01 Bacterial vaginosis [id number] N76.0 63-year-ol d female was 2 weeks postop from a supracervi my hysterecto my and sacral spinous ligament fixation. She has foul-smell ing vaginal discharge. We agreed to treat. Patient's vagina was examined. It appears to be normal. [id number] Mile Liraer [facility] [address],[place] [address] 03/06/2024 11:59:21 03/06/2024 12:08:53 Vaginal irritation 244899635 N89.8 Urinary symptoms [id number] R39.9 [id number] Rex Hackett MD [facility] [address],[place] [address] 03/28/2024 14:04:28 03/29/2024 10:21:21 Bacterial vaginosis 075407855 N76.0 63-year-ol d female who presents to discuss hormone replacemen t therapy. She recently had hormone replacemen t pellets inserted. She is doing very well. We talked about the nature of her treatment. Talked about the multicompo nent approached she is following. Discussed precaution s and risk. She will follow up as needed. Complained of vaginal discharge. Odor. Would like to treat for BV. Health Concerns Section Related Observation LastModified by Organization Detai ls LastModified Time None Recorded Concern Status LastModified by Organization Details LastModified Time None Recorded Advance Directives Directive Y: Payers Encounter Date Sequence Insurance Name Policy Number Policy Hirsch Covered Member ID Hirsch Member ID Guarantor Name 01/23/2024 1 [place] [id number] Jessee De La Cruz [id number] Hayley StephensonCardioMind 02/06/2024 1 [place] [id number] Jessee De La Cruz [id number] Hayley Stephenson[employer] 02/13/2024 1 [place] [id number] Jessee De La Cruz [id number] Hayley [employer] 03/06/2024 1 [place] [id number] Jessee De La Cruz [id number] Hayley Logan 03/28/2024 1 [place] [id number] Jessee De La Cruz [id number] Hayley Logan Notes Date Note Type Note Provider Name and Address Organization Details Recorded Time 01/23/2024 text/html this patient is a 63-year-old female with pelvic organ prolapse. We have agreed to perform robotic assisted total hysterectomy with bilateral salpingo-oophorectom y in conjunction with Dr. Grider who will perform the sacral spinous ligament fixation. This will all be done robotically. The patient understands the procedure. The procedure was described to the patient in great detail. the patient also understands the risks. The risks were also explained in detail. She understands that injuries May occur during surgery. She understands these injuries can result in hospitalization, more surgery, and severe illness. She understands there is risk of hemorrhage and infection. Rex Hackett MD [address], [place], [address], [facility] 01/23/2024 15:05:45 02/06/2024 text/html female Patient presents for postop follow-up. She is 1 week postop from a Robotic assisted supracervical hysterectomyy. She has no complaints. Her incisions are clean dry and intact. She is recovering normally. She will follow-up as needed. Rex Hackett MD [address], [place], [address], [facility] 02/06/2024 12:39:24 02/13/2024 text/html 63-year-old fema le was 2 weeks postop from a supracervical hysterectomy and sacral spinous ligament fixation. She has foul-smelling vaginal discharge. We agreed to treat. Patient's vagina was examined. It appears to be normal. Rex Hackett MD [address], [place], [address], [facility] 02/13/2024 16:10:08 03/28/2024 text/html 63-year-old femkelsie bruno who presents to discuss hormone replacement therapy. She recently had hormone replacement pellets inserted. She is doing very well. We talked about the nature of her treatment. Talked about the multicomponent approached she is following. Discussed precautions and risk. She will follow up as needed. Complained of vaginal discharge. Odor. Would like to treat for BV. Rex Hackett MD [address], [place], [address], [facility] 03/28/2024 21:36:05 OBGyn Episode Ob Episode Information Episode Created Date Number of Fetuses Patient Bloodtype Patient rh Status Prepregnancy Weight lbs Domestic Partner Domestic Partner Phone Father Name Deputy Chief Counsel Status 09/12/19 24 1 CLOSED Fetus Data First Name Last Name Admitted to NICU Weight (g) Sex Living Outcome Pediatric Complications Fetus ID Race Codes Race Delivery Type 4220.65 [id number] Full Term [id number] Vaginal Delivery Davey Calculation Initial Davey Date Initial Exam Date Initial Exam Provider Initial Ultrasound Date Last Menstrual Period Date Ultra Sound Weeks Gestation 0 Eighteen To Twenty Week Davey Update Ultra Sound Date Fundal Height At Umbil Quickening Date Ultra Sound Latest Weeks Gestation Final Davey Confirmed By Final Davey Confirmed Date Final Davey Date Ultra Sound Latest Days Gestation 0 0 Menstrual History Last Menstrual Date Menses Monthly On Bcp Conception Prior Menses Frequency Hcg Plus Date Menarche Onset Age Delivery Information Delivery Date Delivery Type Labor Anesthesia Weeks Gestation Incision Type Labor Labor Length Hrs Delivered By Post Complications Tubal Sterilization Discharge Date Comments 5 42 Discharge Information Feeding Method Contraceptive Method Maternal HG B and HCT Levels Ob Episode Information Episode Created Date Number of Fetuses Patient Bloodtype Patient rh Status Prepregnancy Weight lbs Domestic Partner Domestic Partner Phone Father Name Deputy Chief Counsel Status 06/09/20 23 1 CLOSED Fetus Data First Name Last Name Admitted to NICU Weight (g) Sex Living Outcome Pediatric Complications Fetus ID Race Codes Race Delivery Type 3903.65 [id number] M Full Term [id number] Vaginal Delivery Davey Calculation Initial Davey Date Initial Exam Date Initial Exam Provider Initial Ultrasound Date Last Menstrual Period Date Ultra Sound Weeks Gestation 0 Eighteen To Twenty Week Davey Update Ultra Sound Date Fundal Height At Umbil Quickening Date Ultra Sound Latest Weeks Gestation Final Davey Confirmed By Final Davey Confirmed Date Final Davey Date Ultra Sound Latest Days Gestation 0 0 Menstrual History Last Menstrual Date Menses Monthly On Bcp Conception Prior Menses Frequency Hcg Plus Date Menarche Onset Age Delivery Information Delivery Date Delivery Type Labor Anesthesia Weeks Gestation Incision Type Labor Labor Length Hrs Delivered By Post Complications Tubal Sterilization Discharge Date Comments 3 42 Discharge Information Feeding Method Contraceptive Method Maternal HG B and HCT Levels
--- OUTSIDE RECORDS SUMMARY | 2024-08-20 21:10 | XMS_ITS | Continuity of Care Document ---
Author Organization [facility] Address [address] [place] [address] Phone Care Team Providers Care Medical Equipment Technician Name Role Phone Unavailable Unavailable Unavailable Allergies, Adverse Reactions, Alerts Substance Reaction Status Criticality FESOTERODINE FUMARATE Constipation(moderate) Active No Information Medications Medication Instructions Dosage Effective Dates (start - stop) Status Comments Mccammon Thyroid 60 mg tablet take 1 tablet [...] by Oral route once 1 - Active Mccammon Thyroid 60 mg tablet take 1 tablet [...] Providers Copied on Encounter OFFICE/OUTPA TIENT VISIT, [facility], [address], [id number], [place] tel:[phone] [facility] Thyroid problems (chief complaint)Pos tmenopausal bleeding (chief complaint) Postmenopausa l bleedingHypot hyroidism, unspecified type 0 No Information [facility], [address], [id number], [place] tel:[phone] Clinical Services Department No Information 0 Franklyn Byrd. [address] [place], [address], [place]. tel:[phone] OFFICE/OUTPA TIENT VISIT, [facility], [facility] [address], [id number], [place] tel:[phone] [facility] Postmenopausa l bleeding (chief complaint) Encounter to discuss test results 0 Vic Henderson. [address] [place], [address], [place]. tel:[phone] OFFICE/OUTPA TIENT VISIT, [facility], [facility] [address], [id number], [place] tel:[phone] [facility] postmenopausa l bleeding (chief complaint) Postmenopausa l bleedingHypot hyroidism, unspecified typeVitamin D deficiency 0 Franklyn Byrd. [address] [place], [address], [place]. tel:[phone] [facility], [address], [id number], [place] tel:[phone] [facility] No Information 0 Mati Prince. [address] [place], [address], [place]. tel:[phone] OFFICE/OUTPA TIENT VISIT, [facility], [address], [id number], [place] tel:[phone] [facility] Thyroid problems (chief complaint)Ins omnia (chief complaint)candice k pain (chief complaint) Hypothyroidis m, unspecified typeAdjustmen t insomniaLow back pain without sciatica, unspecified back pain laterality, unspecified chronicity 9 Tammi Carine. [address] [place], [address], [place]. tel:[phone] [facility], [address], [id number], [place] tel:[phone] [facility] Fatigue, unspecified type 9 Tammi Carine. [address] [place], [address], [place]. tel:[phone] [facility], [address] [place] [address], [id number], [place] tel:[phone] [facility] Screening for breast cancer 9 Tammi Carine. [address] [place], [address], [place]. tel:[phone] OFFICE/OUTPA TIENT VISIT, [facility], [address], [id number], [place] tel:[phone] [facility] Fatigue (chief complaint)Vag inal discharge (chief complaint) Fatigue, unspecified typeVaginal dischargePost -menopausal bleedingScree marisela for colon cancer 9 Tammi Carine. [address] [place], [address], [place]. tel:[phone] OFFICE/OUTPA TIENT VISIT, [facility], [address] [facility] [address], [id number], [place] tel:[phone] [facility] vaginal discharge (chief complaint) Screening for breast cancerVaginal dischargeGeni heena herpes simplex, unspecified site 5- 8 Mati Heardie. [address] [place], [address], [place]. tel:[phone] OFFICE/OUTPA TIENT VISIT, [facility], [address] [facility] [address], [place], [id number], [place] tel:[phone] [facility] rash (chief complaint) Perioral dermatitis 2 8 Tammi Carine. [address] [place], [address], [place]. tel:[phone] OFFICE/OUTPA TIENT VISIT, [facility], [address], [id number], [place] tel:[phone] [facility] Urinary frequency (FP) (chief complaint) Urinary urgencyScreen ing for STD (sexually transmitted disease) 7 Tammi Carine. [address] [place], [address], [place]. tel:[phone] OFFICE/OUTPA TIENT VISIT, [facility], [address] [facility] [address], [id number], [place] tel:[phone] [facility] Vaginal discharge/itc gabby (chief complaint) Vaginal discharge 0-201 7 Tammi Carine. [address] [place], [address], [place]. tel:[phone] OFFICE/OUTPA TIENT VISIT, [facility], [address] [facility] [address], [id number], [place] tel:[phone] [facility] Follow Up of Urinary complaints (chief complaint) Genital herpes simplex, unspecified site Mar- 7 No Information OFFICE/OUTPA TIENT VISIT, [facility], [address], [place], [place], [id number], [place] tel:[phone] [facility] Urinary complaints (chief complaint) Dysuria Mar- 7 No Information OFFICE/OUTPA TIENT VISIT, [facility], [address], [place], [place], [id number], [place] tel:[phone] [facility] burning with urination (chief complaint) Vaginal discharge Mar- 7 No Information OFFICE/OUTPA TIENT VISIT, [facility], [address], [place], [place], [id number], [place] tel:[phone] [facility] Skin lesion (chief complaint)Men opausal symptoms (chief complaint) AK (actinic keratosis)Pos t-menopausal Dec- 7 Tammi Carine. [address] [place], [address], [place]. tel:[phone] [facility], [address] [address], [place], [place], [id number], [place] tel:[phone] Clinical Services Department hand pain (chief complaint) Preventative health care 6 [facility]. [address] [place], [address], [place]. tel:[phone] OFFICE/OUTPA TIENT VISIT, [facility], [address], [place], [place], [id number], [place] tel:[phone] [facility] musculoskelet al pain (chief complaint) Left hand pain 6 No Information OFFICE/OUTPA TIENT VISIT, [facility], [address], [place], [place], [id number], [place] tel:[phone] [facility] vaginal discharge (chief complaint)dinesh mogram (chief complaint) Abnormal mammogram of left breastVaginal discharge 6 Tammi Carine. [address] [place], [address], [place]. tel:[phone] OFFICE/OUTPA TIENT VISIT, EST [facility], [address], [place], [place], [id number], [place] tel:[phone] [facility] Vaginal discharge (chief complaint) Encounter for other specified special examinationsO ther specified noninflammato ry disorders of vagina Mar-3 0 6 No Information PREV VISIT, EST, AGE 40-64 [facility], [address] [address], [place], [place], [id number], [place] tel:[phone] [facility] Physical (chief complaint) Encounter for general adult medical examination without abnormal findingsScree marisela breast examinationAK (actinic keratosis) 6 Tammi Carine. [address] [place], [address], [place]. [phone] [facility], [address] [address], [place], [place], [id number], [place] tel:[phone] [facility] Encounter for general adult medical examination without abnormal findingsPost- menopausal 6 Tammi Carine. [address] [place], [address], [place]. tel:[phone] OFFICE/OUTPA TIENT VISIT, EST [facility], [address], [place], [place], [id number], [place] tel:[phone] [facility] Vaginal discharge/itc gabby (chief complaint) Vaginal irritation 6 Tammi Carine. [address] [place], [address], [place]. tel:[phone] OFFICE/OUTPA TIENT VISIT, [facility], [address], [place], [place], [id number], [place] tel:[phone] [facility] Respiratory Infection (chief complaint)cou gh (chief complaint) Cough Apr-0 8-201 6 No Information OFFICE/OUTPA TIENT VISIT, [facility], [address], [place], [place], [id number], [place] tel:[phone] [facility] Fever (chief complaint) Viral illness Apr-0 6-201 6 No Information OFFICE/OUTPA TIENT VISIT, [facility], [address] [address], [place], [id number], [place] tel:[phone] [facility] musculoskelet al pain (chief complaint)abd ominal pain (chief complaint) No Information Sep-0 1- 5 Tammi Carine. [address] [place], [address], [place]. tel:[phone] OFFICE/OUTPA TIENT VISIT, [facility], [address] [address], [place], [place], [id number], [place] tel:[phone] [facility] abdominal pain (chief complaint) No Information Yoav-2 5-201 5 Tammi Carine. [address] [place], [address], [place]. tel:[phone] OFFICE/OUTPA TIENT VISIT, [facility], [address], [place], [place], [id number], [place] tel:[phone] [facility] abdominal pain (chief complaint)Hyp erlipidemia (chief complaint) No Information Yoav-0 -201 5 Tammi Carine. [address] [place], [address], [place]. tel:[phone] OFFICE/OUTPA TIENT VISIT, [facility], [address], [place], [id number], [place] tel:[phone] [facility] Syncope (chief complaint) No Information No Information OFFICE/OUTPA TIENT VISIT, [facility], [address], [id number], [place] tel:[phone] [facility] Menopausal symptoms (chief complaint)Diz ziness (FP) (chief complaint)candice k pain (chief complaint) No Information 5 Tammi Carine. [address] [place], [address], [place]. tel:[phone] OFFICE/OUTPA TIENT VISIT, [facility], [address], [id number], [place] tel:[phone] [facility] abdominal pain (chief complaint) No Information No Information OFFICE/OUTPA TIENT VISIT, EST [facility], [address] [address], [place], [place], [id number], [place] tel:[phone] [facility] abdominal pain (chief complaint) No Information No Information PREV VISIT, EST, AGE 40-64 [facility], [address] [address], [place], [place], [id number], [place] tel:[phone] [facility] PAP test (chief complaint) No Information 4 Tammi Carine. [address] [place], [address], [place]. tel:[phone] PREV VISIT, EST, AGE 40-64 [facility], [address], [id number], [place] tel:[phone] [facility] Preventive exam (FP) (chief complaint)Pal pitations (FP) (chief complaint)Ski n lesion (chief complaint)Fat igue (chief complaint) No Information 0- 4 Tammi Carine. [address] [place], [address], [place]. tel:[phone] OFFICE/OUTPA TIENT VISIT, [facility], [address], [place], [place], [id number], [place] tel:[phone] [facility] [place] (chief complaint) No Information Apr-1 0- 3 Gerson Mclean. [address] [place], [address], [place]. tel:[phone] OFFICE/OUTPA TIENT VISIT, [facility], [address], [id number], [place] tel:[phone] [facility] vaginal bleeding/HRT (chief complaint) No Information Apr-0 1 3 Gerson Mclean. [address] [place], [address], [place]. tel:[phone] OFFICE/OUTPA TIENT VISIT, [facility], [address], [place], [id number], [place] tel:[phone] [facility] musculoskelet al pain (chief complaint) No [...] emphysema Payers Payer name Insurance type Covered libertarian ID Authoraiyanaa victor m(s) [facility] Medicaid [id number] Social History Type Description Quantity Date Captured [...] Routine Scre ening. Due on due Goal Colonoscopy. Due on due Goal Pap/HPV testing. Due on due Goal Depression scree marisela. Due on due Goal Influenza vaccine. Due on due Goal Mammogram. Due on 3 due Goal Td vaccine. Due on 20 due Goal Zoster vaccine ( ). Due on due Goal Lipid panel. Due on due Goal Dental exam. Due on due Goal Tdap. Due on due Goal FOBT. Due on due Goal Lipid panel. Due on 024 due Goal Dental exam. Due on 020 due Goal Pap/HPV testing. Due on due Goal Zoster vaccine ( 1st). Due on due Goal Depression scree marisela. Due on due Goal Tdap. Due on due Goal Td vaccine. Due on due Goal Mammogram. Due on due Goal Influenza vaccine. Due on due Goal Colonoscopy. Due on due Goal FOBT. Due on due Goal Dental exam. Due on due Goal Pap/HPV testing. Due on due Goal Depression scree marisela. Due on due Goal FOBT. Due on due Goal Zoster vaccine ( ). Due on due Goal Tdap. Due on due Goal Td vaccine. Due on due Goal Colonoscopy. Due on due Goal Mammogram. Due on due Goal Influenza vaccine. Due [...] Goal Td vaccine. Due on due Goal Dental exam. Due on due Goal Depression scree marisela. Due on due Goal FOBT. Due on due Goal Tdap. Due on due Goal Colonoscopy. Due on due Goal Pap/HPV testing. Due on due Goal Influenza vaccine. Due on due Goal Mammogram. Due on 1 due Goal Zoster vaccine ( ). Due [...] Td vaccine. Due on 19 due Goal Tdap. Due on due Goal Pap/HPV testing. Due [...] Goal Lipid panel. Due on due Goal Depression scree marisela. Due on due Goal Tdap. Due on due Goal Pap/HPV testing. Due on due Goal Mammogram. Due on 8 due Goal Influenza vaccine. Due on due Goal Dental exam. Due on due Goal Tdap. Due on due Goal Td vaccine. Due on 18 due Goal Lipid panel. Due on due Goal Pap/HPV testing. Due on due Goal Depression scree marisela. Due on due Goal Influenza vaccine. Due on due Goal Td vaccine. Due on 18 due Goal FOBT. Due on due Goal Dental exam. Due on due Goal Td vaccine. Due on 17 due Goal Dental exam. Due on 017 due Goal Influenza vaccine. Due on due [...] Goal Td vaccine. Due on due Goal Sigmoidoscopy. Due on due Goal Influenza vaccine. Due [...] Future Order: Lab Order Vitamin D, 25-Hydroxy ([id number]), Appointment on: Ordered Future Order: Lab Order Celiac D isease Antibody Screen ([id number]), Appointment on: Ordered Future Order: Lab Order Allergen Profile, Basic Food ([id number]), Appointment on: Ordered Future Order: Lab Order Celiac D isease Antibody Screen ([id number]), Appointment on: Ordered Future Order: Lab Order Allergen Profile, Basic Food ([id number]), Appointment on: Ordered Future Order: Lab Order Celiac D isease Antibody Screen ([id number]), Appointment on: Ordered Future Order: Lab Order Allergen Profile, Basic Food ([id number]), Appointment on: Ordered Future Order: Lab Order Celiac D isease Antibody Screen ([id number]), Appointment on: Ordered Future Order: Lab Order TSH ([id number]), O rdered on: Ordered Future Order: Lab Order CBC with Diff ([id number]), Ordered on: Ordered History Of Present Illness [...] HRT with testosterone and estrogen with naturopathic TICKET COUNTER - feels it was too much too [...] then started bleeding. She is stuck in [place] given COVID-19 pandemic and is looking to fly back to [place] in 2-3 weeks. She is taking Mccammon Thyroid 60mg QD and last thyroid tests ~6 and 12 mo ago looked unremarkable. Did not go for past [place] or SENIOR SYSTEMS DEVELOPER referral placed by prior PCP. Discussed new [...] tates that she has been seeing a TICKET COUNTER for bio-identical hormones. Initially started on 60mg [...] havi ng difficulty sleeping prior to stopping Mccammon Thyroid but continues to have difficulty and now with nightmares. Pt is moving back to [place] for a few months (mainly for the [...] When she was [place] in [place] she was cycling. Fatigue This is a [...] myalgia, pallor and pruritus. Vaginal discharge (comments) Abo august 2 weeks ago used an estrogen suppository [...] over the internet from a doctor in [place]. She has been douching with apple cider [...] weakness. Additional information: 1 month hx of Hi hand pain, she attributes this to work [...] alcohol. Additional information: Patient here for routine SENIOR SYSTEMS DEVELOPER care. Pt has pending referral for mammogram. LMP was 07/2013. Last pap smear was 2010, no h/o abnormal. PAP test (comments) Patient here for routine SENIOR SYSTEMS DEVELOPER care. Pt has pending referral for mammogram. [...] Patient states she has pending appt with SENIOR SYSTEMS DEVELOPER tomorrow. Requesting referral for c-scope. Patient has [...] Assessmen t No Information Instructions Date Instruction Ramesh Serrano sumigi -Educated on medicat ion usage-Encouraged daily exercise [...] unspecified site - Advised pt. 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 Will f/u with results. Related to [...] patient understands. Related to Gluten intolerance Normal SENIOR SYSTEMS DEVELOPER exam. Enc ourged to perform monthly SBE. [...] vitamin D. Pt has appt scheduled with SENIOR SYSTEMS DEVELOPER for routine exam tomorrow. Related to ROUTINE MEDICAL EXAM Pt with h/o adrenal exhaustion and c/o chronic fatigue, requests consult with breaker engineer, referral placed. Related to Chronic fatigue Assessments Type Assessment Date assessment Postmenopausal bleeding 020 assessment Hypothyroidism, unspecified type impression -Taking medication a s prescribed-No issues with medication, feels current dosage is working well-Recent TSH on 02/20 showed normal TSH levels Mental Status Date Cognitive Assessment Orientation - [place] ed to time, place, person, situation. Patient Care Teams Name Effective Dates (start - stop) Status Members No Information
[2024-08-20 21:14] VITALS: BP 126/74; PULSE 65; RESP 15; TEMP 36.1; O2SAT 99
--- NOTE | 2024-08-20 23:25 | ED.FALL ---
HPI - Fall General Chief Complaint: Fall Stated Complaint: Fell down three steps/+HS Time Seen by Provider: 08/20/24 23:20 Source: patient Mode of arrival: ambulatory Limitations: no limitations History of Present Illness HPI Narrative: This is a 64-year-old female who presents to the ED for chief complaint of a fall downstairs today. States that she accidentally septal walking down her stairs inside and fell down about 3 steps. Reports subsequent pain to the low back, right knee, left ankle, headache neck after the fall. States that she has osteopenia and was concerned that she may have a fracture. Denies numbness, weakness or any further injury. Denies LOC. Denies preceding chest pain, shortness of breath or other recent illness. Related Data Home Medications ?Medication ?Instructions ?Recorded ?Confirmed ?Last Taken ?Type minerals 1 tablet PO DAILY 01/24/24 01/24/24 Unknown History multivitamin 1 cap PO DAILY 01/24/24 01/24/24 Unknown History potassium bicarb 500 mg-magnesium 1 g PO DAILY 01/24/24 01/24/24 Unknown History 300 mg/6.1 gram effervescent powder (Magnesium Fizz-Plus) Allergies Allergy/AdvReac Type Severity Reaction Status Date / Time nirmatrelvir (From Paxlovid) AdvReac Intermediate Anxiety, Verified 08/20/24 21:18 confusion oseltamivir (From Tamiflu) AdvReac Intermediate Unknown Verified 08/20/24 21:18 ritonavir (From Paxlovid) AdvReac Intermediate Anxiety, Verified 08/20/24 21:18 confusion Review of Systems Review of Systems: All systems as dictated in HPI [facility] Past Medical History Medical History Hypothyroidism Post-menopausal Stress incontinence Uterine prolapse Surgical History Surgical History History of bilateral salpingo-oophorectomy (01/30/24) History of hysterectomy, supracervical (01/30/24) History of midurethral sling procedure (01/30/24) History of sacrocolpopexy (01/30/24) History of tonsillectomy History of uterine suspension procedure Social History Social History Social History: Surrogate medical decision maker: Jessee De La Cruz, spouse. Code status: Full code. Smoking packs per day: 0.25 Smoking cigarettes per day: 5.0 Years smoked: 5 Smoking pack-years: 1.25 Smoking status: Former smoker Tobacco type: cigarettes Smoking end date: 11/01/97 Alcohol intake: current Alcohol use details: Perhaps 1 alcoholic beverage a month. Substance use: never Substance use type: does not use Living arrangements: with family Additional living arrangements comments: Lives with spouse. Spiritual care concerns: No Exam Narrative: GENERAL: Well-appearing, well-nourished, and in no acute distress. HEAD: Normocephalic, atraumatic. EYES: PERRLA and EOMI. ENT: Nares clear, no rhinorrhea or epistaxis. Mucous membranes moist. Oropharynx without tonsillar hypertrophy exudate or other lesions. NECK: Supple. No adenopathy or masses. CHEST: No respiratory distress. Clear to auscultation. No wheezes rales or rhonchi HEART: Regular rate and rhythm. No murmur heard. Normal peripheral pulses. ABDOMEN: Soft, nontender, nondistended, normal active bowel sounds. MSK: Normal range of motion. No edema. SKIN: Warm, dry, no rash. NEURO: Alert and oriented x4. No focal deficits. PSYCH: Normal mood and affect. Course Vital Signs Vital signs: Vital Signs Temperature 97 F L 08/20/24 21:14 Pulse Rate 65 08/20/24 21:14 Respiratory Rate 15 08/20/24 21:14 Blood Pressure 126/74 08/20/24 21:14 Pulse Oximetry 99 08/20/24 21:14 Oxygen Delivery Room Air 08/20/24 21:14 Temperature 97 F L 08/20/24 21:14 Pulse Rate 65 08/20/24 21:14 Respiratory Rate 15 08/20/24 21:14 Blood Pressure 126/74 08/20/24 21:14 Pulse Oximetry 99 08/20/24 21:14 Oxygen Delivery Room Air 08/20/24 21:14 MDM - Fall MDM Narrative Medical decision making narrative: This is a 64-year-old female who presents to the ED for chief complaint of fall downstairs today. Vitals are normal. Exam remarkable for the above. She has no overt signs of trauma on exam. X-ray imaging of the lumbar spine, left ankle, right knee are all negative for acute osseous findings. CT brain and cervical spine are also negative. Patient was given Tylenol here for pain control. Rx for Tylenol and cyclobenzaprine given. Presentation consistent with muscle strains and contusions. Patient will be discharged in stable condition. Supportive measures discussed and return precautions given. Patient is understanding and agreeable with plan for discharge with PCP follow-up. Discharge Plan Discharge Clinical Impression: Fall Patient Disposition: Home, Self-Care Condition: Stable Instructions: Antibiotic Form Additional Instructions: Your exam and imaging today are reassuring overall. Injury sustained today are probably more likely related to contusions and muscle strains. Please take acetaminophen as prescribed. Use cyclobenzaprine as needed at nighttime for muscle spasm. Patient Language: Dominican Prescriptions: New acetaminophen [Tylenol Arthritis Pain] 650 mg tablet extended release 650 mg PO Q8H PRN (Reason: pain) Qty: 30 0RF cyclobenzaprine 7.5 mg tablet 7.5 mg PO HS PRN (Reason: muscle spasm) Qty: 10 0RF No Action ciprofloxacin HCl [Cipro] 500 mg tablet 500 mg PO Q12H Qty: 14 0RF polyethylene glycol 3350 [Miralax] 17 gram powder in packet 17 g PO BID Qty: 30 0RF multivitamin Capsule 1 cap PO DAILY Magnesium Fizz-Plus 500-300 mg/6.1 gram Powder Effervescent 1 g PO DAILY minerals Tablet 1 tablet PO DAILY docusate sodium [Colace] 100 mg capsule 100 mg PO BID Qty: 40 0RF hydrocodone-acetaminophen 5-325 mg tablet 1 tablet PO Q6H PRN (Reason: pain) Qty: 20 0RF Follow-up/Referrals: Rex Hackett MD [Primary Care Provider] - Time of Disposition: 23:28
[2024-08-20] MEDS: ACETAMINOPHEN 500 MG TABLET 1000 MG PO (23:35)
--- OUTSIDE RECORDS SUMMARY | 2024-08-20 23:35 | XMS_ITS | Continuity of Care Document ---
Author Organization [facility] Address [address] [place] [address] Phone Care Team Providers Care As400 Programmer Analyst Name Role Phone Unavailable Unavailable Unavailable Allergies, Adverse Reactions, Alerts Substance Reaction Status Criticality FESOTERODINE FUMARATE Constipation(moderate) Active No Information Medications Medication Instructions Dosage Effective Dates (start - stop) Status Comments Bettendorf Thyroid 60 mg tablet take 1 tablet [...] by Oral route once 1 - Active Bettendorf Thyroid 60 mg tablet take 1 tablet [...] Providers Copied on Encounter OFFICE/OUTPA TIENT VISIT, [facility], [address], [id number], [place] tel:[phone] [facility] Thyroid problems (chief complaint)Pos tmenopausal bleeding (chief complaint) Postmenopausa l bleedingHypot hyroidism, unspecified type 0 No Information [facility], [address], [id number], [place] tel:[phone] Clinical Services Department No Information 0 Franklyn Byrd. [address] [place], [address], [place]. tel:[phone] OFFICE/OUTPA TIENT VISIT, [facility], [facility], [id number], [place] tel:[phone] [facility] Postmenopausa l bleeding (chief complaint) Encounter to discuss test results 0 Vic Henderson. [address] [place], [address], [place]. tel:[phone] OFFICE/OUTPA TIENT VISIT, [facility], [facility], [id number], [place] tel:[phone] [facility] postmenopausa l bleeding (chief complaint) Postmenopausa l bleedingHypot hyroidism, unspecified typeVitamin D deficiency 0 Franklyn Byrd. [address] [place], [address], [place]. tel:[phone] [facility], [address], [id number], [place] tel:[phone] [facility] [place] No Information 0 Mati Prince. [address] [place], [address], [place]. tel:[phone] OFFICE/OUTPA TIENT VISIT, [facility], [address], [id number], [place] tel:[phone] [facility] Thyroid problems (chief complaint)Ins omnia (chief complaint)candice k pain (chief complaint) Hypothyroidis m, unspecified typeAdjustmen t insomniaLow back pain without sciatica, unspecified back pain laterality, unspecified chronicity 9 Tammi Carine. [address] [place], [address], [place]. tel:[phone] [facility], [address], [id number], [place] tel:[phone] [facility] Fatigue, unspecified type 9 Tammi Carine. [address] [place], [address], [place]. tel:[phone] [facility], [address] [place] [address], [id number], [place] tel:[phone] [facility] Screening for breast cancer 9 Tammi Carine. [address] [place], [address], [place]. tel:[phone] OFFICE/OUTPA TIENT VISIT, [facility], [address], [id number], [place] tel:[phone] [facility] Fatigue (chief complaint)Vag inal discharge (chief complaint) Fatigue, unspecified typeVaginal dischargePost -menopausal bleedingScree marisela for colon cancer 9 Tammi Carine. [address] [place], [address], [place]. tel:[phone] OFFICE/OUTPA TIENT VISIT, [facility], [address] [facility] [address], [place], [id number], [place] tel:[phone] [facility] vaginal discharge (chief complaint) Screening for breast cancerVaginal dischargeGeni heena herpes simplex, unspecified site 5- 8 Mati Heardie. [address] [place], [address], [place]. tel:[phone] OFFICE/OUTPA TIENT VISIT, [facility], [address] [facility] [address], [place], [id number], [place] tel:[phone] [facility] rash (chief complaint) Perioral dermatitis 2 8 Tammi Carine. [address] [place], [address], [place]. tel:[phone] OFFICE/OUTPA TIENT VISIT, [facility], [address], [id number], [place] tel:[phone] [facility] Urinary frequency (FP) (chief complaint) Urinary urgencyScreen ing for STD (sexually transmitted disease) 7 Tammi Carine. [address] [place], [address], [place]. tel:[phone] OFFICE/OUTPA TIENT VISIT, [facility], [address] [facility] [address], [place], [id number], [place] tel:[phone] [facility] Vaginal discharge/itc gabby (chief complaint) Vaginal discharge 0-201 7 Tammi Carine. [address] [place], [address], [place]. tel:[phone] OFFICE/OUTPA TIENT VISIT, [facility], [address] [facility] [address], [place], [id number], [place] tel:[phone] [facility] Follow Up of Urinary complaints (chief complaint) Genital herpes simplex, unspecified site Mar- 7 No Information OFFICE/OUTPA TIENT VISIT, [facility], [address] [facility] [address], [place], [place], [id number], [place] tel:[phone] [facility] Urinary complaints (chief complaint) Dysuria Mar- 7 No Information OFFICE/OUTPA TIENT VISIT, [facility], [address] [facility] [address], [place], [place], [id number], [place] tel:[phone] [facility] burning with urination (chief complaint) Vaginal discharge Mar- 7 No Information OFFICE/OUTPA TIENT VISIT, [facility], [address] [facility] [address], [place], [id number], [place] tel:[phone] [facility] Skin lesion (chief complaint)Men opausal symptoms (chief complaint) AK (actinic keratosis)Pos t-menopausal Dec- 7 Tammi Carine. [address] [place], [address], [place]. tel:[phone] [facility], [address] [address], [place], [id number], [place] tel:[phone] Clinical Services Department hand pain (chief complaint) Preventative health care 6 [facility]. [address] [place], [address], [place]. tel:[phone] OFFICE/OUTPA TIENT VISIT, [facility], [address] [facility] [address], [place], [place], [id number], [place] tel:[phone] [facility] musculoskelet al pain (chief complaint) Left hand pain 6 No Information OFFICE/OUTPA TIENT VISIT, [facility], [address] [facility] [address], [place], [place], [id number], [place] tel:[phone] [facility] vaginal discharge (chief complaint)dinesh mogram (chief complaint) Abnormal mammogram of left breastVaginal discharge 6 Tammi Carine. [address] [place], [address], [place]. tel:[phone] OFFICE/OUTPA TIENT VISIT, EST [facility], [address] [facility] [address], [place], [place], [id number], [place] tel:[phone] [facility] Vaginal discharge (chief complaint) Encounter for other specified special examinationsO ther specified noninflammato ry disorders of vagina Mar-3 0 6 No Information PREV VISIT, EST, AGE 40-64 [facility], [address] [address], [place], [id number], [place] tel:[phone] [facility] Physical (chief complaint) Encounter for general adult medical examination without abnormal findingsScree marisela breast examinationAK (actinic keratosis) 6 Tammi Carine. [address] [place], [address], [place]. [phone] [facility], [address] [address], [place], [id number], [place] tel:[phone] [facility] Encounter for general adult medical examination without abnormal findingsPost- menopausal 6 Tammi Carine. [address] [place], [address], [place]. tel:[phone] OFFICE/OUTPA TIENT VISIT, EST [facility], [address] [facility] [address], [place], [id number], [place] tel:[phone] [facility] Vaginal discharge/itc gabby (chief complaint) Vaginal irritation 6 Tammi Carine. [address] [place], [address], [place]. tel:[phone] OFFICE/OUTPA TIENT VISIT, [facility], [address] [facility] [address], [place], [place], [id number], [place] tel:[phone] [facility] Respiratory Infection (chief complaint)cou gh (chief complaint) Cough Apr-0 8-201 6 No Information OFFICE/OUTPA TIENT VISIT, [facility], [address] [facility] [address], [place], [id number], [place] tel:[phone] [facility] Fever (chief complaint) Viral illness Apr-0 6-201 6 No Information OFFICE/OUTPA TIENT VISIT, [facility], [address] [address], [place], [place], [id number], [place] tel:[phone] [facility] musculoskelet al pain (chief complaint)abd ominal pain (chief complaint) No Information Sep-0 1- 5 Tammi Carine. [address] [place], [address], [place]. tel:[phone] OFFICE/OUTPA TIENT VISIT, [facility], [address] [address], [place], [id number], [place] tel:[phone] [facility] abdominal pain (chief complaint) No Information Yoav-2 5-201 5 Tammi Carine. [address] [place], [address], [place]. tel:[phone] OFFICE/OUTPA TIENT VISIT, [facility], [address] [facility] [address], [place], [id number], [place] tel:[phone] [facility] abdominal pain (chief complaint)Hyp erlipidemia (chief complaint) No Information Yoav-0 -201 5 Tammi Carine. [address] [place], [address], [place]. tel:[phone] OFFICE/OUTPA TIENT VISIT, [facility], [address] [facility] [address], [place], [place], [id number], [place] tel:[phone] [facility] Syncope (chief complaint) No Information No Information OFFICE/OUTPA TIENT VISIT, [facility], [address], [id number], [place] tel:[phone] [facility] Menopausal symptoms (chief complaint)Diz ziness (FP) (chief complaint)candice k pain (chief complaint) No Information 5 Tammi Carine. [address] [place], [address], [place]. tel:[phone] OFFICE/OUTPA TIENT VISIT, [facility], [address], [id number], [place] tel:[phone] [facility] abdominal pain (chief complaint) No Information No Information OFFICE/OUTPA TIENT VISIT, EST [facility], [address] [address], [place], [id number], [place] tel:[phone] [facility] abdominal pain (chief complaint) No Information No Information PREV VISIT, EST, AGE 40-64 [facility], [address] [address], [place], [place], [id number], [place] tel:[phone] [facility] PAP test (chief complaint) No Information 4 Tammi Carine. [address] [place], [address], [place]. tel:[phone] PREV VISIT, EST, AGE 40-64 [facility], [address], [id number], [place] tel:[phone] [facility] Preventive exam (FP) (chief complaint)Pal pitations (FP) (chief complaint)Ski n lesion (chief complaint)Fat igue (chief complaint) No Information 0- 4 Tammi Carine. [address] [place], [address], [place]. tel:[phone] OFFICE/OUTPA TIENT VISIT, [facility], [address] [facility] [address], [place], [place], [id number], [place] tel:[phone] [facility] [place] (chief complaint) No Information Apr-1 0- 3 Gerson Mclean. [address] [place], [address], [place]. tel:[phone] OFFICE/OUTPA TIENT VISIT, [facility], [address], [id number], [place] tel:[phone] [facility] vaginal bleeding/HRT (chief complaint) No Information Apr-0 1 3 Gerson Mclean. [address] [place], [address], [place]. tel:[phone] OFFICE/OUTPA TIENT VISIT, [facility], [address] [facility] [address], [place], [id number], [place] tel:[phone] [facility] musculoskelet al pain (chief complaint) No [...] name Insurance type Covered constitution party ID Authoraiyanaa victor m(s) [facility] Medicaid [id number] Social History Type Description Quantity Date Captured [...] Due on due Goal Colonoscopy. Due on 029 due Goal Mammogram. Due on 3 due Goal Td vaccine. Due on 20 due Goal Influenza vaccine. Due on due Goal Pap/HPV testing. Due on due Goal Dental exam. Due on due Goal Zoster vaccine ( ). Due on due Goal Depression scree marisela. Due on due Goal Lipid panel. Due on due Goal Td vaccine. Due on 20 due Goal Mammogram. Due on 1 due Goal Colonoscopy. Due on due Goal [...] vaccine ( ). Due on due Goal Dental exam. Due [...] Goal Td vaccine. Due on due Goal Pap/HPV testing. [...] Td vaccine. Due on 17 due Goal Sigmoidoscopy. Due on due Goal [...] Future Order: Lab Order Vitamin D, 25-Hydroxy ([id number]), Appointment on: Ordered Future Order: Lab Order Celiac D isease Antibody Screen ([id number]), Appointment on: Ordered Future Order: Lab Order Allergen Profile, Basic Food ([id number]), Appointment on: Ordered Future Order: Lab Order Celiac D isease Antibody Screen ([id number]), Appointment on: Ordered Future Order: Lab Order Allergen Profile, Basic Food ([id number]), Appointment on: Ordered Future Order: Lab Order Celiac D isease Antibody Screen ([id number]), Appointment on: Ordered Future Order: Lab Order Allergen Profile, Basic Food ([id number]), Appointment on: Ordered Future Order: Lab Order Celiac D isease Antibody Screen ([id number]), Appointment on: Ordered Future Order: Lab Order TSH ([id number]), O rdered on: Ordered Future Order: Lab Order CBC with Diff ([id number]), Ordered on: Ordered History Of Present Illness [...] HRT with testosterone and estrogen with naturopathic MANAGER ED - feels it was too much too [...] and is looking to fly back to [place] in 2-3 weeks. She is taking B[place]f Thyroid 60mg QD and last thyroid tests ~6 and 12 mo ago looked unremarkable. Did not go for past [place] or DISTRICT HOME ECONOMICS AGENT referral placed by prior PCP. Discussed new [...] tates that she has been seeing a MANAGER ED for bio-identical hormones. Initially started on 60mg [...] havi ng difficulty sleeping prior to stopping Bett[place]f Thyroid but continues to have difficulty and now with nightmares. Pt is moving back to [place] for a few months (mainly for the [...] When she was visiting family in the [place] she was cycling. Fatigue This is a [...] over the internet from a doctor in [place]. She has been douching with apple cider [...] alcohol. Additional information: Patient here for routine DISTRICT HOME ECONOMICS AGENT care. Pt has pending referral for mammogram. LMP was 07/2013. Last pap smear was 2010, no h/o abnormal. PAP test (comments) Patient here for routine DISTRICT HOME ECONOMICS AGENT care. Pt has pending referral for mammogram. [...] Patient states she has pending appt with DISTRICT HOME ECONOMICS AGENT tomorrow. Requesting referral for c-scope. Patient has [...] genital area well and gently pat dry.A general studies program chair on the cool setting may be [...] have low vitamin D when evaluated by search engine optimization consultant. Will f/u with results. Related to Vitamin [...] patient understands. Related to Gluten intolerance Normal DISTRICT HOME ECONOMICS AGENT exam. Enc ourged to perform monthly SBE. [...] vitamin D. Pt has appt scheduled with DISTRICT HOME ECONOMICS AGENT for routine exam tomorrow. Related to ROUTINE MEDICAL EXAM Pt with h/o adrenal exhaustion and c/o chronic fatigue, requests consult with search engine optimization consultant, referral placed. Related to Chronic fatigue Assessments Type Assessment Date assessment Postmenopausal bleeding 020 assessment Hypothyroidism, unspecified type impression -Taking medication a s prescribed-No issues with medication, feels current dosage is working well-Recent TSH on 02/20 showed normal TSH levels Mental Status Date Cognitive Assessment Orientation - Curtis ed to time, place, person, situation. Patient Care Teams Name Effective Dates (start - stop) Status Members No Information
== END 2024-08-21 00:08 | disposition home or self-care (01) ==
LOC: ANHED 23:33
PROVIDERS: Emergency Provider Physician Assistant; PCP Obstetrics & Gynecology
DX: S39.92XA Unspecified injury of lower back, initial encounter (principal); S99.912A Unspecified injury of left ankle, initial encounter; S89.91XA Unspecified injury of right lower leg, initial encounter; S19.9XXA Unspecified injury of neck, initial encounter; E03.9 Hypothyroidism, unspecified; M85.80 Other specified disorders of bone density and structure, unspecified site; Z87.891 Personal history of nicotine dependence; Z90.722 Acquired absence of ovaries, bilateral; Z90.79 Acquired absence of other genital organ(s); Z90.711 Acquired absence of uterus with remaining cervical stump; W10.9XXA Fall (on) (from) unspecified stairs and steps, initial encounter
CPT/HCPCS: 70450; 72100; 72125; 73562; 73610; 99284; A9270

== ENCOUNTER 2024-10-04 11:33 | Outpatient (CLI) | payer BC, SELFPAY ==
--- NOTE | ~2024-10-04 | MM_ITS ---
EXAMINATION: MM screening [facility] BI w ed HISTORY: Screening TECHNIQUE: Craniocaudal and mediolateral oblique 3-D tomosynthesis images were obtained and synthetic 2-D images were generated. CAD analysis was submitted and interpreted. COMPARISON: Comparison to multiple prior studies sequentially, with oldest reviewed study dated 12/2015. BREAST PARENCHYMAL COMPOSITION: There are scattered areas of fibroglandular density. FINDINGS: There is no evidence of suspicious mass, calcification, or architectural distortion to sugg est malignancy in either breast. There has been no suspicious interval change. IMPRESSION: 1. No mammographic evidence of malignancy. 2. Recommend routine screening mammography in one year. BI-RADS Category 1: Negative Reviewed, dictated and finalized at location A.
== END 2024-10-04 11:34 | disposition home or self-care (01) ==
LOC: MICIMG 11:38
PROVIDERS: PCP Obstetrics & Gynecology; Visit Provider Obstetrics & Gynecology
DX: Z12.31 Encounter for screening mammogram for malignant neoplasm of breast (principal)
CPT/HCPCS: 77063; 77067

== ENCOUNTER 2025-03-06 14:28 | Emergency (ER) | payer BC, SELFPAY ==
--- OUTSIDE RECORDS SUMMARY | 2020-04-15 04:45 | XMS_ITS | Continuity of Care Document ---
Author Organization [facility] Address [address] [place] [address] Phone Care Team Providers Care Supervisor Grinding Name Role Phone Unavailable Unavailable Unavailable Allergies, Adverse Reactions, Alerts Substance Reaction Status Criticality FESOTERODINE FUMARATE Constipation(moderate) Active No Information Medications Medication Instructions Dosage Effective Dates (start - stop) Status Comments [employer] [place] Thyroid 60 mg tablet take 1 tablet by oral route every morning 1 tablet - Active progesterone micronized 200 mg capsule take 1 capsule by oral route every day for 12 days in the evening sequentially per day cycle 200 MG - Active ibuprofen 600 mg tablet take 1 tablet by oral route 3 times every day with food 600 MG - Active acyclovir 400 mg tablet TAKE 2 TABLETS BY MOUTH THREE TIMES DAILY FOR 2 DAYS NEEDED - Active All Day Allergy (cetirizine) 10 mg capsule take 1 by Oral route once 1 - Active [employer] Thyroid 60 mg tablet take 1 tablet by oral route every morning 1 tablet - No Longer Active trazodone 50 mg tablet TAKE 1 TABLET BY MOUTH EVERY DAY AT BEDTIME - No Longer Active progesterone micronized 200 mg capsule take 1 capsule by oral route every day for 12 days in the evening sequentially per 28 day cycle 200 MG - No Longer Active Problems Condition Type Effective Dates (start - stop) Clini my Status Comments No Known Problems Procedures Procedure Date OFFICE/OUTPATIENT VISIT, EST Scrn dinesh perf rslts doc RVW MEDS BY RX/DR IN [facility] OFFICE/OUTPATIENT VISIT, EST OFFICE/OUTPATIENT VISIT, EST Pt inelig neg scrn depres OFFICE/OUTPATIENT VISIT, EST OFFICE/OUTPATIENT VISIT, EST OFFICE/OUTPATIENT VISIT, EST OFFICE/OUTPATIENT VISIT, EST URINALYSIS NONAUTO W/O SCOPE OFFICE/OUTPATIENT VISIT, EST OFFICE/OUTPATIENT VISIT, EST Pt inelig neg scrn depres OFFICE/OUTPATIENT VISIT, EST OFFICE/OUTPATIENT VISIT, EST URINALYSIS NONAUTO W/O SCOPE SMEAR, [place], SALINE/INK OFFICE/OUTPATIENT VISIT, EST OFFICE/OUTPATIENT VISIT, EST OFFICE/OUTPATIENT VISIT, EST OFFICE/OUTPATIENT VISIT, EST URINALYSIS NONAUTO W/O SCOPE SMEAR, WET MOUNT, SALINE/INK OFFICE/OUTPATIENT VISIT, EST PREV VISIT, EST, AGE 40-64 URINALYSIS NONAUTO W/O SCOPE SMEAR, WET MOUNT, SALINE/INK OFFICE/OUTPATIENT VISIT, EST OFFICE/OUTPATIENT VISIT, EST OFFICE/OUTPATIENT VISIT, EST OFFICE/OUTPATIENT VISIT, EST OFFICE/OUTPATIENT VISIT, EST OFFICE/OUTPATIENT VISIT, EST OFFICE/OUTPATIENT VISIT, EST OFFICE/OUTPATIENT VISIT, EST OFFICE/OUTPATIENT VISIT, EST OFFICE/OUTPATIENT VISIT, EST PREV VISIT, EST, AGE 40-64 PREV VISIT, EST, AGE 40-64 OFFICE/OUTPATIENT VISIT, EST OFFICE/OUTPATIENT VISIT, EST OFFICE/OUTPATIENT VISIT, NEW Advance Directives Directive Yes / No Effective Date File Name No Information Encounters Encounter Description Practice Location Reason(s) For Visit Diagnoses Date Provider Providers Copied on Encounter OFFICE/OUTPA TIENT VISIT, [facility], [address], [id number], [place] tel:[phone] [facility] Thyroid problems (chief complaint)Pos tmenopausal bleeding (chief complaint) Postmenopausa l bleedingHypot hyroidism, unspecified type 0 No Information [facility], [address], [id number], [place] tel:[phone] Clinical Services Department No Information 0 Franklyn Byrd. [address] [place], [address], [place]. tel:[phone] OFFICE/OUTPA TIENT VISIT, [facility], [address] [place] [address], [id number], [place] tel:[phone] [facility] Postmenopausa l bleeding (chief complaint) Encounter to discuss test results 0 No Information OFFICE/OUTPA TIENT VISIT, [facility], [address], [id number], [place] tel:[phone] [facility] postmenopausa l bleeding (chief complaint) Postmenopausa l bleedingHypot hyroidism, unspecified typeVitamin D deficiency 0 Franklyn Byrd. [address] [place], [address], [place]. tel:[phone] [facility], [address], [id number], [place] tel:[phone] [facility] [place] No Information 0 Mati Prince. [address] [place], [address], [place]. tel:[phone] OFFICE/OUTPA TIENT VISIT, [facility], [address] [address], [place], [place], [id number], [place] tel:[phone] [facility] Thyroid problems (chief complaint)Ins omnia (chief complaint)candice k pain (chief complaint) Hypothyroidis m, unspecified typeAdjustmen t insomniaLow back pain without sciatica, unspecified back pain laterality, unspecified chronicity 9 Tammi Carine. [address] [place], [address], [place]. tel:[phone] [facility], [address], [id number], [place] tel:[phone] [facility] Fatigue, unspecified type 9 Tammi Carine. [address] [place], [address], [place]. tel:[phone] [facility], [address], [id number], [place] tel:[phone] [facility] Screening for breast cancer 9 Tammi Carine. [address] [place], [address], [place]. tel:[phone] OFFICE/OUTPA TIENT VISIT, [facility], [address] [address], [place], [place], [id number], [place] tel:[phone] [facility] Fatigue (chief complaint)Vag inal discharge (chief complaint) Fatigue, unspecified typeVaginal dischargePost -menopausal bleedingScree marisela for colon cancer 9 Tammi Carine. [address] [place], [address], [place]. tel:[phone] OFFICE/OUTPA TIENT VISIT, [facility], [address] [facility] [address], [place], [place], [id number], [place] tel:[phone] [facility] vaginal discharge (chief complaint) Screening for breast cancerVaginal dischargeGeni heena herpes simplex, unspecified site 5-201 8 Mati Prince. [address] [place], [address], [place]. tel:[phone] OFFICE/OUTPA TIENT VISIT, [facility], [address], [id number], [place] tel:[phone] [facility] rash (chief complaint) Perioral dermatitis Oct- 2-201 8 Tammi Carine. [address] [place], [address], [place]. tel:[phone] OFFICE/OUTPA TIENT VISIT, [facility], [address], [id number], [place] tel:[phone] [facility] Urinary frequency (FP) (chief complaint) Urinary urgencyScreen ing for STD (sexually transmitted disease) 8-201 7 Tammi Carine. [address] [place], [address], [place]. tel:[phone] OFFICE/OUTPA TIENT VISIT, [facility], [address], [id number], [place] tel:[phone] [facility] Vaginal discharge/itc gabby (chief complaint) Vaginal discharge 0-201 7 Tammi Carine. [address] [place], [address], [place]. tel:[phone] OFFICE/OUTPA TIENT VISIT, [facility], [facility], [id number], [place] tel:[phone] [facility] Follow Up of Urinary complaints (chief complaint) Genital herpes simplex, unspecified site 6-201 7 Sandip Carrera. [address] [place], [address], [place]. tel:[phone] OFFICE/OUTPA TIENT VISIT, [facility], [address] [facility] [address], [place], [id number], [place] tel:[phone] [facility] Urinary complaints (chief complaint) Dysuria Sep-2 0 7 Sandip Carrera. [address] [place], [address], [place]. tel:[phone] OFFICE/OUTPA TIENT VISIT, [facility], [address] [facility] [address], [place], [place], [id number], [place] tel:[phone] [facility] burning with urination (chief complaint) Vaginal discharge Mar- 7 No Information OFFICE/OUTPA TIENT VISIT, [facility], [address] [address], [place], [id number], [place] tel:[phone] [facility] Skin lesion (chief complaint)Men opausal symptoms (chief complaint) AK (actinic keratosis)Pos t-menopausal Yoav- [address] T[address] [facility] [place], [address], [place]. tel:[phone] [facility], [address] [address], [place], [place], [id number], [place] tel:[phone] Clinical Services Department hand pain (chief complaint) Preventative health care Jun- 6 [facility]. [address] [place], [address], [place]. tel:[phone] OFFICE/OUTPA TIENT VISIT, [facility], [address] [address], [place], [id number], [place] tel:[phone] [facility] musculoskelet al pain (chief complaint) Left hand pain Jun- 6 No Information OFFICE/OUTPA TIENT VISIT, [facility], [address], [id number], [place] tel:[phone] [facility] vaginal discharge (chief complaint)dinesh mogram (chief complaint) Abnormal mammogram of left breastVaginal discharge 6 Tammi Carine. [address] [place], [address], [place]. tel:[phone] OFFICE/OUTPA TIENT VISIT, EST [facility], [address], [id number], [place] tel:[phone] [facility] Vaginal discharge (chief complaint) Encounter for other specified special examinationsO ther specified noninflammato ry disorders of vagina 0 6 No Information PREV VISIT, EST, AGE 40-64 [facility], [address], [id number], [place] tel:[phone] [facility] Physical (chief complaint) Encounter for general adult medical examination without abnormal findingsScree marisela breast examinationAK (actinic keratosis) 6 Tammi Carine. [address] [place], [address], [place]. [phone] [facility], [address], [id number], [place] tel:[phone] [facility] Encounter for general adult medical examination without abnormal findingsPost- menopausal 6 Tammi Carine. [address] [place], [address], [place]. tel:[phone] OFFICE/OUTPA TIENT VISIT, EST [facility], [facility], [id number], [place] tel:[phone] [facility] Vaginal discharge/itc gabby (chief complaint) Vaginal irritation 6 Tammi Carine. [address] [place], [address], [place]. tel:[phone] OFFICE/OUTPA TIENT VISIT, [facility], [address], [id number], [place] tel:[phone] [facility] Respiratory Infection (chief complaint)cou gh (chief complaint) Cough Apr-0 8-201 6 No Information OFFICE/OUTPA TIENT VISIT, [facility], [address] [place] [address], [id number], [place] tel:[phone] [facility] Fever (chief complaint) Viral illness Oct-0 6-201 6 No Information OFFICE/OUTPA TIENT VISIT, [facility], [facility], [id number], [place] tel:[phone] [facility] musculoskelet al pain (chief complaint)abd ominal pain (chief complaint) No Information Sep-0 1-201 5 Tammi Carine. [address] [place], [address], [place]. tel:[phone] OFFICE/OUTPA TIENT VISIT, [facility], [facility], [id number], [place] tel:[phone] [facility] abdominal pain (chief complaint) No Information Yoav-2 5-201 5 Tammi Carine. [address] [place], [address], [place]. tel:[phone] OFFICE/OUTPA TIENT VISIT, [facility], [facility] [address], [id number], [place] tel:[phone] [facility] abdominal pain (chief complaint)Hyp erlipidemia (chief complaint) No Information Yoav-0 4-201 5 Tammi Carine. [address] [place], [address], [place]. tel:[phone] OFFICE/OUTPA TIENT VISIT, [facility], [address] [facility] [address], [place], [place], [id number], [place] tel:[phone] [facility] Syncope (chief complaint) No Information No Information OFFICE/OUTPA TIENT VISIT, [facility], [address] [facility] [address], [place], [place], [id number], [place] tel:[phone] [facility] Menopausal symptoms (chief complaint)Diz ziness (FP) (chief complaint)candice k pain (chief complaint) No Information 5 Tammi Carine. [address] [place], [address], [place]. tel:[phone] OFFICE/OUTPA TIENT VISIT, [facility], [address] [facility] [address], [place], [place], [id number], [place] tel:[phone] [facility] abdominal pain (chief complaint) No Information No Information OFFICE/OUTPA TIENT VISIT, [facility], [address] [facility] [address], [place], [place], [id number], [place] tel:[phone] [facility] abdominal pain (chief complaint) No Information No Information PREV VISIT, EST, AGE 40-64 [facility], [address] [facility] [address], [place], [place], [id number], [place] tel:[phone] [facility] PAP test (chief complaint) No Information 4 Tammi Carine. [address] [place], [address], [place]. tel:[phone] PREV VISIT, EST, AGE 40-64 [facility], [address] [facility] [address], [place], [place], [id number], [place] tel:[phone] [facility] Preventive exam (FP) (chief complaint)Pal pitations (FP) (chief complaint)Ski n lesion (chief complaint)Fat igue (chief complaint) No Information Sep-1 0- [address] [facility] [place], [address], [place]. tel:[phone] OFFICE/OUTPA TIENT VISIT, [facility], [address] [facility] [address], [place], [place], [id number], [place] tel:[phone] [facility] (chief complaint) No Information Oct- 0 3 Gerson Mclean. [address] [place], [address], [place]. tel:[phone] OFFICE/OUTPA TIENT VISIT, [facility], [address] [address], [place], [place], [id number], [place] tel:[phone] [facility] vaginal bleeding/HRT (chief complaint) No Information Oct-0 3 Gerson Mclean. [address] [place], [address], [place]. tel:[phone] OFFICE/OUTPA TIENT VISIT, [facility], [address] [address], [place], [place], [id number], [place] tel:[phone] [facility] musculoskelet al pain (chief complaint) No Information Sep-0 8 2 No Information Family History Family Member Type Diagnosis Age At Onset Father Problem (finding) coronary arterioscleros is Paternal grandmother Problem (finding) osteoporosis Sister Problem (finding) Blood disorder Sister Problem (finding) hypothyroidism Maternal grandmother Problem (finding) osteoporosis Father Problem (finding) malignant neoplasm of l adriana Father Problem (finding) pulmonary emphysema Payers Payer name Insurance type Covered constitution party ID Eduar dow(s) [facility] Medicaid [id number] Social History Type Description Quantity Date Captured Comments Alcohol Use Details No 2 drinks rarely Caffeine Use Details coffee and chocolate 1 cup per day Tobacco Use Status Occasional cigarette smoker Smoking Status Former smoker Smoking Tobacco Use Details Cigarette: Years Used 10 Cigarette: 4 Cigarettes per day, Pack Year: 2 Sex Female Chief Complaint And Reason For Visit From encounter dated 04/15/2020 09:45'. Thyroid problems (chief complaint). Description: The severity of the problem is mild. Presenting symptoms do not include atrial fibrillation, dysphagia, insomnia, intolerance to cold, intolerance to heat, rapid heart beat and rapid growth of nodule. Risk factors include age and female. Additional information: Taking medications as prescribed, no issues, recent TSH within normal limits, consented to telehealth appointment. Postmenopausal bleeding (chief complaint). Description: The problem is improving. It occurs weekly.Relieving factors include HRT. Pertinent negatives include abdominal pain, hot flashes and insomnia. Reason For Referral Reason For Referral No Information Plan Of Treatment Date Type Action Status Goal HIV Routine Scre ening. Due on due Goal Depression scree marisela. Due on due Goal Pap/HPV testing. Due on due Goal Colonoscopy. Due on due Goal FOBT. Due on due Goal Tdap. Due on due Goal Dental exam. Due on 020 due Goal Lipid panel. Due on 024 due Goal Zoster vaccine ( 1st). Due on due Goal Td vaccine. Due on 20 due Goal Mammogram. Due on 3 due Goal Influenza vaccine. Due on due Goal Tdap. Due on due Goal Depression scree marisela. Due on due Goal Colonoscopy. Due on due Goal Influenza vaccine. Due on due Goal Pap/HPV testing. Due on due Goal Dental exam. Due on due Goal Lipid panel. Due on due Goal Mammogram. Due on due Goal Td vaccine. Due on due Goal Zoster vaccine ( 1st). Due on due Goal FOBT. Due on due Goal Dental exam. Due on due Goal FOBT. Due on due Goal Zoster vaccine ( ). Due on due Goal Depression scree marisela. Due on due Goal Pap/HPV testing. Due on due Goal Mammogram. Due on due Goal Colonoscopy. Due on due Goal Td vaccine. Due on due Goal Tdap. Due on due Goal Influenza vaccine. Due on due Goal Lipid panel. Due on due Goal Mammogram. Due on due Goal Depression scree marisela. Due on due Goal Lipid panel. Due on due Goal Dental exam. Due on due Goal Td vaccine. Due on due Goal Zoster vaccine ( 1st). Due on due Goal Pap/HPV testing. Due on due Goal Colonoscopy. Due on due Goal Influenza vaccine. Due on due Goal Tdap. Due on due Goal FOBT. Due on due Goal Lipid panel. Due on due Goal Zoster vaccine ( ). Due on due Goal Mammogram. Due on 1 due Goal Influenza vaccine. Due on due Goal Pap/HPV testing. Due on due Goal Colonoscopy. Due on due Goal Tdap. Due on due Goal FOBT. Due on due Goal Depression scree marisela. Due on due Goal Dental exam. Due on due Goal Td vaccine. Due on due Goal Mammogram. Due on 1 due Goal Tdap. Due on due Goal Influenza vaccine. Due on due Goal Depression scree marisela. Due on due Goal Td vaccine. Due on 19 due Goal Zoster vaccine ( ). Due on due Goal Lipid panel. Due on due Goal Colonoscopy. Due on due Goal Pap/HPV testing. Due on due Goal Dental exam. Due on 019 due Goal FOBT. Due on due Goal Tdap. Due on due Goal Td vaccine. Due on 19 due Goal Depression scree marisela. Due on due Goal Pap/HPV testing. Due on due Goal Dental exam. Due on due Goal Lipid panel. Due on due Goal Influenza vaccine. Due on due Goal Tdap. Due on due Goal Influenza vaccine. Due on due Goal Depression scree marisela. Due on due Goal Td vaccine. Due on due Goal Lipid panel. Due on due Goal Pap/HPV testing. Due on due Goal Dental exam. Due on due Goal Pap/HPV testing. Due on due Goal Tdap. Due on due Goal Depression scree marisela. Due on due Goal Lipid panel. Due on due Goal Dental exam. Due on due Goal Influenza vaccine. Due on due Goal Td vaccine. Due on 19 due Goal Lipid panel. Due on due Goal Tdap. Due on due Goal Td vaccine. Due on 18 due Goal Dental exam. Due on due Goal Pap/HPV testing. Due on due Goal Depression scree marisela. Due on due Goal Mammogram. Due on 8 due Goal Influenza vaccine. Due on due Goal Dental exam. Due on due Goal FOBT. Due on due Goal Td vaccine. Due on 18 due Goal Influenza vaccine. Due on Ap due Goal FOBT. Due on due Goal Influenza vaccine. Due on No due Goal Dental exam. Due on 017 due Goal Td vaccine. Due on due Goal Td vaccine. Due on 17 due Goal FOBT. Due on due Goal Influenza vaccine. Due on Oc due Goal Influenza vaccine. Due on Se due Goal Td vaccine. Due on due Goal FOBT. Due on due Goal Td vaccine. Due on due Goal Influenza vaccine. Due on Se due Goal FOBT. Due on due Goal Td vaccine. Due on due Goal FOBT. Due on due Goal Influenza vaccine. Due on Se due Goal FOBT. Due on due Goal Influenza vaccine. Due on Ju due Goal Sigmoidoscopy. Due on due Goal Td vaccine. Due on 17 due Goal Lifestyle education regardin g diet completed Goal Lifestyle education regardin g diet completed Referral Ordered: Pelvis / Uterus Ultrasound (nonobstetric) (Transvaginal) ordered Referral Ordered: Referrals: Obstetrics and Gynecology. Evaluate and treat Appointment date/timeframe: 02/01/2020 ordered Referral Referred To: Dr. Juarez Ordered: Referrals: Endocrinology, Diabetes and Metabolism. Dr. Juarez. Evaluate and treat ordered Referral Ordered: Mammogram breast screening digital ordered Referral Ordered: US NON-OB TRANSVAGINAL ordered Referral Ordered: Screening mammography of both breasts ordered Referral Ordered: Referrals: Dermatology. Evaluate and treat ordered Referral Ordered: X-RAY EXAM OF HAND-2 VIEWS Left hand ordered Referral Ordered: DEXA bone density study of hip and spine ordered Referral Ordered: DIAGNOSTIC MAMMOGRAM, UNILATERAL, US IF NEEDED L ordered Referral Ordered: Referrals: Gynecology. Evaluate and treat Appointment date/timeframe: 05/04/2016 ordered Referral Ordered: MAMMOGRAM, SCREENING ordered Referral Ordered: X-RAY EXAM OF HIP-MINIMUM OF 2 VIEWS, UNILATERAL ordered Referral Ordered: Endocrinology Appointment date/timeframe: 03/13/2014 ordered Referral Ordered: Event Monitor (30 days) ordered Future Order: Lab Order Vitamin D, 25-Hydroxy ([id number]), Appointment on: Ordered Future Order: Lab Order Celiac D isease Antibody Screen ([id number]), Appointment on: Ordered Future Order: Lab Order Allergen Profile, Basic Food ([id number]), Appointment on: Ordered Future Order: Lab Order Celiac D isease Antibody Screen ([id number]), Appointment on: Ordered Future Order: Lab Order Allergen Profile, Basic Food ([id number]), Appointment on: Ordered Future Order: Lab Order Celiac D isease Antibody Screen ([id number]), Appointment on: Ordered Future Order: Lab Order Allergen Profile, Basic Food ([id number]), Appointment on: Ordered Future Order: Lab Order Celiac D isease Antibody Screen ([id number]), Appointment on: Ordered Future Order: Lab Order TSH ([id number]), O rdered on: Ordered Future Order: Lab Order CBC with Diff ([id number]), Ordered on: Ordered History Of Present Illness Encounter Date Complaint History Of Prese nt Illness Thyroid problems The severity of the problem is mild. Presenting symptoms do not include atrial fibrillation, dysphagia, insomnia, intolerance to cold, intolerance to heat, rapid heart beat and rapid growth of nodule. Risk factors include age and female. Additional information: Taking medications as prescribed, no issues, recent TSH within normal limits, consented to telehealth appointment. Postmenopausal bleeding The prob philip is improving. It occurs weekly. Relieving factors include HRT. Pertinent negatives include abdominal pain, hot flashes and insomnia. Postmenopausal bleeding Onset: 1 month ago. postmenopausal bleeding Onset: 1 year ago. Severity level is mild-moderate. The problem is worse. Relieving factors include progesterone. Additional information: patient reports 1 yr of intermittent post-menopausal bleeding. Started HRT with testosterone and estrogen with naturopathic [facility] - feels it was too much too soon. Progesterone helping. postmenopausal bleeding (comment s) Initially had spotting with HRT, then stopped spotting for 2 weeks, then for the last 2 days has had heavier period-like bleeding. 3 regular tampons/day. No lightheadedness/SHOB. Some fatigue. Some pelvic area pain - taking ibuprofen. Tried a monostat 2 days ago at onset of bleeding as she thought she waws developing yeast infn, but then started bleeding. She is stuck in [place] given COVID-19 pandemic and is looking to fly back to [place] in 2-3 weeks. She is taking [place] Thyroid 60mg QD and last thyroid tests ~6 and 12 mo ago looked unremarkable. Did not go for past US or LOAN CLERK referral placed by prior PCP. Discussed new PCP should be established soon. Thyroid problems The severity of the problem is mild. The problem has not changed. Risk factors include age and female. Pertinent negatives include bilateral lower extremity edema, coarse skin, cold intolerance, constipation, difficulty concentrating, dry skin, dyspnea, fatigue, hair loss, headache, heat intolerance, irregular heartbeat / palpitations, weight gain or weight loss. Insomnia The patient pres ents with sleep problems. Relevant history: a BMI of 23.11. The patient has the following risk factors for insomnia: age > 40 years. The insomnia is worsened by stress. Denies relieving factors. The patient is experiencing difficulty initiating sleep and difficulty maintaining sleep. The patient denies awakening with choking, awakening with shortness of breath, changes in appetite, depression, difficulty concentrating, gasping during sleep, headache upon awakening, heartburn, increased fatigue, snoring (reported by patient), snoring (reported by others), weight gain, wheezing or witnessed apnea or irregular nighttime breathing. Thyroid problems (comments) Pt s tates that she has been seeing a [facility] for bio-identical hormones. Initially started on 60mg and then increased to 90mg due to the thyroid over correcting. She did have labs in April but she does not have those results. She began having palpitations and difficulty sleeping. She has now been off of thyroid medication for about one month.T3 3.3 in January and TSH was 0.053 at that time. Pt requesting to have thyroid monitored. back pain Location of pain is lower back. The patient describes the pain as an ache. Context: no injury. Symptoms are aggravated by bending, lifting and twisting.The patient denies relieving factors. Pertinent negatives include bladder incontinence, bladder retention, bowel incontinence, bowel retention, joint pain, limping, numbness, rash, spasms, tenderness, tingling in the arms, tingling in the legs, weakness and weight loss. Insomnia (comments) She was havi ng difficulty sleeping prior to stopping [place] Thyroid but continues to have difficulty and now with nightmares. Pt is moving back to [place] for a few months (mainly for the holidays). She will be leaving Tuesday. back pain (comments) Pt has been moving and has had to move her items twice. C/o low back pain, achiness. Denies numb/tingling or weakness of the LE. Denies sharp, shooting pains into the LE. Denies loss of bowel/bladder control. Fatigue (comments) Pt requesting blood test, states she has been very fatigued. She is still following a low carb diet. Not sleeping wellC/o hot flashes, feeling hot all night. No night sweats. States hard to walk even 3 flight of stairs, shortness of breath. Denies chest pain. When she was visiting family in the [place] she was cycling. Fatigue This is a follow up visit. The symptoms began 3 weeks ago and began gradually. The symptoms have remained unchanged. The patient presents with fatigue. The symptoms are aggravated by lack of sleep and stress. Interventions the patient has tried have not provided any relief. The fatigue is associated with change in sleep cycle, loss of interest and weight gain. The patient denies any change in appetite, chills, constipation, diaphoresis, diarrhea, dyspnea, flank pain, generalized weakness, heartburn, hematemesis, hematochezia, hoarseness, lightheadedness, malaise, melena, myalgia, pallor and pruritus. Vaginal discharge Her symptoms b rosalia 2 Weeks ago. She states the problem has remained unchanged. The symptoms are reported as being mild. Presently the patient is experiencing vaginal discharge. Presently the patient is not experiencing vaginal itching, vaginal irritation and vaginal odor. The patient is postmenopausal. The patient has a history of yeast. Her symptoms are aggravated by vaginal estrogen suppository. Her symptoms are not relieved by anything. She denies fever, vaginal burning, dysuria, urinary frequency, genital lesions, genital rash, genital ulcers, itching skin of vaginal/groin or vulvar dystrophy. Vaginal discharge (comments) Bernabe koch 2 weeks ago used an estrogen suppository to help with hormone imbalance. States since then she has had a slightly blood tinged discharge. No panty liner but like a sticky discharge, states more dark brown and NOT bright red. She is post-menopausal for about 6 years. vaginal discharge (comments) Jordyn cesar is a 58 year old female here for 1 day h/o yellowish green vaginal discharge associated with mild burning/irritation. States she had yeast infection and treated herself with monistat OTC. States yeast resolved but this different discharge appeared. No fever, chills, flank pain, pelvic pain, or urinary symptoms. States she had similar episode in 2014, resolved with flagyl. Pt also has genital herpes and has been using topical bactroban without much improvement. States she was scared of side effects from oral acyclovir. has had 3 outbreaks this year. vaginal discharge rash The patient pres ents for rash. The symptom(s) are described as moderate and unchanged. Affected area(s) include scalp and face. The patient describes the affected area(s) as itchy and red. Denies aggravating factors. Denies relieving factors. Associated symptoms include erythema (skin) and pruritus. Pertinent negatives include bleeding, cracking, crusting, dry skin, edema, fatigue, hypopigmentation, myalgia, painful rash and pharyngitis. There are no other household members with similar symptoms. Relevant history positive for history of allergies. Relevant history negative for history of asthma and history of atopic dermatitis. rash (comments) States she has h ad a rash on her face, she did try primrose oil and aleovera. This did help but still has some remnants of rash. Urinary frequency (FP) Onset: 2 months ago. The problem is with no change. The causes of the leakage are coughing, laughing, lifting, sneezing and urgency. Associated symptoms include nocturia, urgency and urinary frequency every 1 hour(s). Pertinent negatives include chills, dysuria, fever, hematuria, incomplete emptying, loss of vaginal sensation, pressure (pelvic), prolapsed uterus, strain to urinate, urinary dribbling and urinary hesitancy. Additional information: history of childbirth, no history of stones, no history of UTIs and sexually active. Urinary frequency (FP) (comments ) States she has been having urinary urgency, symptoms started in Mar. No accident or overflow incontinence. Some stress incontinence but not bothersome. Vaginal discharge/itching She st ates the problem has improved. The symptoms are reported as being moderate. Presently the patient is experiencing vaginal itching and vaginal irritation. Presently the patient is not experiencing vaginal odor and vaginal discharge. The patient is postmenopausal. Relevant factors include new partner. Her symptoms are not aggravated by anything. Her symptoms are not relieved by anything. Her symptoms are associated with vaginal burning, genital lesions, genital ulcers, herpes genitalis and itching skin of vaginal/groin but she denies fever, dyspareunia, dysuria, frequent urination, genital rash or vulvar dystrophy. Vaginal discharge/it cintia (comments) Pt recently completed tx for herpes. States she began to have itching again. She was tx earlier in Mar for suspected yeast and BV. She is currently using OTC monistat to help with itching. Follow Up of Urinary complaints The onset was 6 days ago. The patient reports pain in the [place]. The patient describes the characteristics of the pain as Burning. It occurs constantly. The problem is worse. Patient reports no leakage. Prolapse symptoms do not include dyspareunia or sensation vaginal bulge. The patient does not report any of the following neurological symptoms: diabetes. Associated symptoms include dysuria. Pertinent negatives include fever, hematuria, urinary hesitancy, loss of vaginal sensation, nocturia and recurrent UTI. Patient is sexually active. Urinary complaints The onset was 1 day ago. Severity level is severe. The patient reports pain in the vaginal area. The patient describes the characteristics of the pain as burning. It occurs constantly. The patient does not report any of the following neurological symptoms: diabetes. Associated symptoms include dysuria and urgency. Pertinent negatives include fever. Patient is sexually active. Additional information: Notes the diflucan did not work. Notes that the urethra is swollen, which was examined yesterday. Started running on tuesday.. burning with urination The sympt oms are reported as being mild. The symptoms occur daily. Presents with sx of UTI, buring or urination, she has recently become sexually active for the first time in several years with a much younger man. They are having sex daily and she feels this is contributing to her sx. she also reports use of vaginal lubricant she bought over the internet from a doctor in [place]. She has been douching with apple cider vinegar to treat her sx. Skin lesion (comments) Pt has lizarraga d lesion on her right nasolabial fold for months. she has not had this previously treated. States it seems to be slightly larger. No personal h/o skin cancer or fam h/o skin cancer. Menopausal symptoms (comments) P t is requesting hormone labs (including testosterone), pt receives bioidentical hormone cream. She has also been using OTC testo cream for women. Pt also c/o hair loss as well but states, feels that it is thinning but no balding patches. Last mammogram 04/2016. Skin lesion The problem is m ild, has not changed and occurs continuously. Area(s) of concern include the right nasal fold. The lesion(s) of concern is described as growing. The patient has not been previously treated. The patient reports no prior history of skin cancer. Risk factors do not include family history of skin cancer. Aggravating factors include scratching. The does not report any relieving factors. Associated symptoms include erythema, itchy skin and scaly skin. The reports no blistering, change in color of mole(s), change in size and shape of the mole(s), fatigue, lesion discharge, lymphadenopathy, non-healing sores, painful lesions, recurrent bleeding lesions or skin irritation. Menopausal symptoms The problem is with no change. It occurs randomly. Denies aggravating factors. Relieving factors include HRT. Associated symptoms include diaphoresis, hot flashes and thinning hair. Pertinent negatives include abdominal pain, bladder problems, fever, insomnia, irregular menses, mood swings, nipple discharge, oligomenorrhea, palpitations, vaginal discharge, vaginal dryness, weight gain and weight loss. hand pain musculoskeletal pain Onset: 1 mo nth ago. Location: left hand. The pain is aggravated by movement. Associated symptoms include decreased mobility. Pertinent negatives include bruising, crepitus, difficulty initiating sleep, joint instability, joint tenderness, numbness, swelling, tingling in the arms and weakness. Additional information: 1 month hx of L. 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 vaginal discharge Presently the patient is experiencing vaginal discharge. Presently the patient is not experiencing vaginal itching, vaginal irritation and vaginal odor. The patient is perimenopausal. The patient has a history of bacterial vaginosis and yeast. The patient has no history of abnormal PAP, chlamydia, gonorrhea, herpes genitalis or trichomoniasis. Her symptoms are not aggravated by anything. Her symptoms are not relieved by anything. She denies fever, dyspareunia, vaginal burning, dysuria, frequent urination, genital lesions, genital rash, genital ulcers, herpes genitalis, itching skin of vaginal/groin or vulvar dystrophy. vaginal discharge (comments) Pt continues to have intermittent vaginal discharge that is yellow, thick without an odor. Pt continues to use vinegar douching occasionally. Wet preps negative and STD testing. mammogram mammogram (comments) Reviewed/di scussed mammogram results. Pt has pending f/u appt today for left dx mammo/US. Vaginal discharge Her symptoms b rosalia 2 Weeks ago. She states the problem has remained unchanged. The symptoms are reported as being mild. Presently the patient is experiencing vaginal irritation and vaginal discharge. Color is yellow. Character is watery. Presently the patient is not experiencing vaginal itching and vaginal odor. The patient is perimenopausal. Last menstrual period was 03/26/2016. Relevant factors include douching and new partner but patient denies condom use or contraceptive use. The patient has a history of yeast. The patient has no history of abnormal PAP, bacterial vaginosis, chlamydia, gonorrhea, herpes genitalis or trichomoniasis. Her symptoms are associated with vaginal burning but she denies fever, dysuria, frequent urination, genital lesions, genital rash, genital ulcers, herpes genitalis, itching skin of vaginal/groin or vulvar dystrophy. Physical Physical (comments) Pt has had c -scope, about 2 years ago, advised to repeat in 5 years. Last pap smear was 03/2014, normal. No h/o abnormal. Last mammogram was about one year ago. Vaginal discharge/it cintia (comments) pt c/o vaginal itching (greenish in color). Pt states that she used vinegar douching. Some burning/uncomfortable feeling, no itching. States she also tried OTC monistat for about 3 days.pt did states she has had one sexual relation and notice a wart on his private region but she has not had any warts. Vaginal discharge/itching Her sy mptoms began 3 Weeks ago. She states the problem has remained unchanged. The symptoms are reported as being moderate. Presently the patient is experiencing vaginal irritation and vaginal discharge. Presently the patient is not experiencing vaginal itching and vaginal odor. The patient is perimenopausal. The patient has a history of bacterial vaginosis and yeast. Her symptoms are not aggravated by anything. Her symptoms are not relieved by monistat or other factors. She denies fever, dyspareunia, vaginal burning, dysuria, frequent urination, genital lesions, genital rash, genital ulcers, herpes genitalis, itching skin of vaginal/groin or vulvar dystrophy. Respiratory Infection cough Onset: 5 days ag o. The patient describes the cough as moist and productive (of green sputum). It occurs persistently. The problem has not changed. There are no aggravating factors. There are no relieving factors. Associated symptoms include cough, fever, nasal congestion, sinus pressure and sore throat. Pertinent negatives include chills, dyspnea, fatigue, post-nasal drainage, rhinitis, rhinorrhea and wheezing. Additional information: seen on Tue for flu-like symptoms given tamiflu. Fever Onset: 2 days ag o. The patient describes it as steady. It occurs daily. The status is unchanged. She denies aggravating factors. Relieving factors include ibuprofen. Associated symptoms include cough. Additional information: body aches, congestion mild cough. musculoskeletal pain (comments) c/o chronic hip and knee pain. Wakes her up at night. Takes ibuprofen prn, it does help other times it does not. Does not like to take ibuprofen too often because it makes her feel hungover. left hip/right knee. Depends on activity level that she has been doing the day before. Denies redness/swelling of joints. 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 abdominal pain (comments) After treating with albenza patient continued to use garlic enemas adn noticed more worms in stool/toilet. The stool. O&P was negative. STates that the abdominal bloating and gas is significantly improved and that she has lost weight (also made dietary changes) but concerned that she might have larva/eggs in colon. Denies blood in stool or diarrhea. musculoskeletal pain Onset: 5 ye ars ago. It occurs constantly and is worsening. The pain is aching and dull. Context: there is no injury. The pain is aggravated by bending, climbing (and descending) stairs and movement. There are no relieving factors. Associated symptoms include joint tenderness, nocturnal awakening and nocturnal pain. Pertinent negatives include bruising, crepitus, decreased mobility, limping, locking, numbness, popping, spasms, swelling, tingling in the arms, tingling in the legs and weakness. Hand Dominance: right. abdominal pain The severity of the problem is mild. The denies relieving factors. Pertinent negatives include back pain, bloating, blood in stool, change in appetite, diarrhea, dyspnea, flank pain, flatulence, heartburn, nausea and vomiting. abdominal pain (comments) Pt did some research on the internet regarding symptoms. States she then tried a coffee enema and also a garlic enema. States after using the garlic enema she saw what appeared to be a long worm in her toilet. She states that this was often a common result after using a garlic enema. She did it again and had a smaller worm in her stool. Requesting treatment for parasite/worms. States since doing this her symptoms have improved some. abdominal pain The severity of the problem is moderate. The problem has not changed. The location is right upper quadrant. The quality of the pain is achy. These symptoms do not occur after bowel movement and after meals. The denies aggravating factors. The denies relieving factors. Associated symptoms include bloating, eructation and flatulence. Pertinent negatives include back pain, blood in stool, change in appetite, constipation, diarrhea, dyspnea, heartburn, hematuria, nausea, rash, vomiting, weight gain and weight loss. abdominal pain The severity of the problem is mild. The problem is improving. The symptoms are intermittent. The location is right upper quadrant. These symptoms do not occur after bowel movement and after meals. Pertinent negatives include back pain, bloating, blood in stool, change in appetite, constipation, diarrhea, dizziness, dyspnea, eructation, fever, flank pain, flatulence, heartburn, hematuria, jaundice, lightheadedness, myalgia, nausea, rash, vaginal bleeding, vaginal discharge, vomiting, weight gain and weight loss. Hyperlipidemia (comments) Here t o f/u on lab results. States that she is no longer following a strict diet. has been eating a lot of eggs with butter. Also having bullet proof coffee which is made butter and coconut oil. abdominal pain (comments) States that she has been having abdominal pain for several weeks. States that she was drinking water from lead/crystal glass. Had her lead level check. States that this morning she still had some pain in the liver area. states she has been doing a liver detox. Denies nausea or vomiting. Denies diarrhea, h/o constipation. Denies blood in stool. c-scope 04/2014 normal, repeat in 10 years. Hyperlipidemia Risk factors inc lude age over 50. The patient is adhering to medication for their hyperlipidemia. Associated symptoms include nausea. Pertinent negatives include chest pain, constipation, diarrhea, dizziness, dyspnea, excessive thirst, heartburn, hematuria, increased fatigue, myalgia, rash,'+ vomiting, weight gain and weight loss. Syncope Onset was sudden . The duration of the symptoms is 1 Day. It occurs daily and has improved. Initial symptoms include: blurred vision, light-headed, loss of consciousness and unstable horizon. Symptoms are aggravated by blood draw. Relieving factors include lying flat, rest and sitting. back pain (comments) H/o fall fr om a counter about 5 years ago. has had chronic low back pain off and on since that time. Requesting refill of ibuprofen. Menopausal symptoms (comments) R equesting to have estrogen levels checked. States she has been exercising alot (interval level training) and states that in the past she has had this low when exercising. Also, requesting vitamin D level to be check as well.Insomnia is improving Dizziness (FP) (comments) Was se en several months was seen for dizziness/vertigo. States this did improve but then she was on the swing with her granddaughter and noticed that she still have vertigo. Pt does ringing in ears. Denies LIZARRAGA or diplopia.Notices this when sitting an on her ipad/computer. Menopausal symptoms The problem is improving. It occurs constantly. Denies aggravating factors. Associated symptoms include diaphoresis, hot flashes and insomnia. Pertinent negatives include abdominal pain, bladder problems, bone pain, fever, irregular menses, menorrhagia, mood swings, nipple discharge, oligomenorrhea, palpitations, thinning hair, vaginal discharge, vaginal dryness, weight gain and weight loss. Dizziness (FP) The problem is u nchanged. It occurs intermittently. It occurs while sitting and it also occurs spontaneously. Denies relieving factors. Associated symptoms include nausea. Pertinent negatives include chest pain, diplopia, ear drainage, fever, headache, hearing loss, incoordination, loss of consciousness, neck stiffness, otalgia, palpitations, paresthesia, seizures, slurred speech, tinnitus, vision loss, vomiting and weakness. back pain Location of pain is lower back.There is no radiation of pain. The patient describes the pain as an ache and deep. Context: no injury. Symptoms are aggravated by lifting, lying/rest, sitting, standing and walking. Symptoms are relieved by over the counter medication: ibuprofen. Associated symptoms include spasms. Pertinent negatives include abdominal pain, bladder incontinence, bladder retention, bowel incontinence, bowel retention, joint pain, limping, numbness, rash, tenderness, tingling in the arms, tingling in the legs, weakness and weight loss. abdominal pain Onset: 3 Years. The severity of the problem is moderate. The symptoms are recurring. The location is epigastric. Associated symptoms include bloating, constipation and flatulence. Pertinent negatives include diarrhea, nausea and vomiting. abdominal pain Onset: 5 Years. The severity of the problem is moderate. The problem has not changed. The symptoms are recurring. Associated symptoms include bloating, constipation, nausea and weight gain. Pertinent negatives include fever. PAP test Her menses is ir regular. Negative for dysmenorrhea and menorrhagia. Negative for: breast discharge, breast lump(s), breast pain and breast self exam. Menopausal symptoms negative for: hot flashes, insomnia, night sweats and vaginal dryness. Pertinent negatives include abnormal bleeding, anxiety, decreased libido, depression, difficulty falling sleep, dyspareunia, history of infertility, nocturia, sexual dysfunction, sleep disturbances, urinary incontinence, urinary urgency, vaginal discharge and vaginal itching. Diet healthy. The patient does use tobacco. She has not been exposed to passive smoke. She does drink alcohol. Additional information: Patient here for routine [facility] care. Pt has pending referral for mammogram. LMP was 07/2013. Last pap smear was 2010, no h/o abnormal. PAP test (comments) Patient here for routine [facility] [employer] care. Pt has pending referral for mammogram. LMP was 07/2013. Last pap smear was 2010, no h/o abnormal. Fatigue It occurs consta ntly. The problem is stable. The Denies aggravating factors. The denies relieving factors. Pertinent negatives include apnea, depression, environmental allergies, fever, frequent infections, joint pain, joint swelling, rash and snoring. Skin lesion (comments) States lainey olson did her first hike up the incline in the sun/wind and developed spot on her face that has since not gone away. This has been present for about 5 months. States it has stayed red and does not go away. Has not increased in size. Skin lesion The problem is m ild and has not changed. The lesion(s) of concern is described as red color. The patient has not been previously treated. The patient reports no prior history of skin cancer. The patient denies aggravating factors. The does not report any relieving factors. Associated symptoms include erythema and fatigue. The reports no blistering, change in color of mole(s), change in size and shape of the mole(s), itchy skin, lesion discharge, lymphadenopathy, non-healing sores, painful lesions, pigment change, recurrent bleeding lesions, scaly skin or skin irritation. Preventive exam (FP) (comments) LMP 07/2013, uterine suspension in 1989. last mammogram 02/2010. Patient states she has pending appt with LO[facility] CLERK tomorrow. Requesting referral for c-scope. Patient has never had a c-scope.Positive ROS: nausea started this AM. States she has been having heartburn. Constipation, states she has had this for years. Insomnia, was on Ambien previously but then started falling alot, so she stopped taking it. States she was on Lexapro for about 1.5 years, states that it caused memory difficulty. Palpitations (FP) (comments) Sta odalys that she was wearing a heart monitor to 183-200, this happened when she had a cold and had taken a cold medication 2 days prior. States that it went on for about 4 days. States her resting heartrate yesterday was 177 for 3 mins and then down to 76. States this started on 03/08/14. She states recently changed the battery and she has used this monitor in the past without issues. States she just feels tired. Denies chest pain or feeling palpitations. States she is now drinking decaf. No soda or tea throughout the day. Mother passed at age 31yo due to PE. Father with carotid artery blockage (takes an aspirin a day). Palpitations (FP) The patient pr esents with a complaint of Palpitations (FP). The symptom(s) began gradually. The patient does not complain of any pain. The patient also complains of fatigue and nausea. The patient denies chest pain, dyspnea, palpitations and vomiting. Relevant history for this patient includes tobacco use. Interventions the patient has tried have not provided any relief. The patient denies any abdominal pain, claudication, chronic cough, headache, malaise, nocturnal dyspnea, syncope or weight gain. Preventive exam (FP) Fatigue (comments) Pt c/o chroni c fatigue. States she has h/o adrenal exhaustion. Requesting referral to ENDO Functional Status Date Functional Assessmen t No Information Instructions Date Instruction Additional Infor ivone -Educated on medicat ion usage-Encouraged daily exercise and healthy diet -All questions answered to patient satisfaction.-No concerns expressed at end of visit.-Contact clinic if you have any questions arise about your plan of care. -Return to clinic if symptoms persist, become worse or new symptoms arise. Related to Hypothyroidism, unspecified type -Educated on possibl e side effects of medication-Educated on medication usage Related to Postmenopausal bleeding -pelvic US and OBGYN referral-emergency precautions related to bleeding-stay hydrated, iron-rich diet-check labs when back in [place] - thyroid, CBC, pt requesting vit D for h/o vit D def-avoid estrogen/testosterone from naturopathic provider right now-f/up after labs, telehealth may be ok Related to Postmenopausal bleeding -as above Related to Vitam in D deficiency -as above Related to Hypot hyroidism, unspecified type - Discussed diagnosi s w/ pt. - Avoid trimming hair in area- Avoid sharing carolin etc - Start 7 day course of Acyclovir 400mg PO TID; side effect profile explained.- Also given bactroban oint. for other superficial inf. present. - F/U in 1-2 weeks after completion of tx. Related to Genital herpes simplex, unspecified site - Advised pt. to brenda t for Ucx and will inform her of the result.- Pt. worried about perineal pressure since 1 week, will wait for result and re-assess next visit. Related to Dysuria Stop douchingClotrim azole and diflucan were sent to pharmacy; read and follow label directionsNightgowns allow air to circulate.Cotton underpants. Double-rinse underwear after washing to avoid residual irritants. Do not use fabric softeners for underwear and swimsuits.Avoid tights, leotards, and leggings. Skirts and loose-fitting pants allow air to circulate.Use soap to wash regions other than the genital area; limit use of any soap on genital areas.Rinse the genital area well and gently pat dry.A math and sciences department chair on the cool setting may be helpful to assist with drying the genital region.Do not use bubble baths or perfumed soaps.If the vulvar area is tender or swollen, cool compresses may relieve discomfort, wet wipes instead of toilet paper Contact clinic if you have any questions about your plan of care. Return to clinic if symptoms persist, become worse or new symptoms arise. Related to Vaginal discharge Related to Left hand pain We will contact you with lab results Contact clinic if you have any questions about your plan of care. Return to clinic if symptoms persist, become worse or new symptoms arise. Related to Other specified noninflammatory disorders of vagina Push fluidWarm compr esses to sinusesOTC Mucinex prnF/U as needed Related to Cough Giving encouragement to exercise Lifestyle education regarding di et Treat your fever, re st, and drink plenty of fluids. You may have a significant fever for up to a total of 5 -6 days. If you develop increased work of breathing with worsening cough go to the ED for further evaluation. I have placed you on Tamiflu so please take it as directed for 5 days. Related to Viral illness Monitor Drink plenty of water today, EAT somethingFollowup next week to discuss labs Related to Vasovagal syncope Giving encouragement to exercise Lifestyle education regarding di et Refilled ibuprofen. Provided flexeril to use prn, discussed possible side effects. Related to Back pain States she was found to have low vitamin D when evaluated by real estate accountant. Will f/u with results. Related to Vitamin D deficiency This has failed to i mprove and symptoms present for over a month. Referral for vestibular therapy. If fails to improve, will consult ENT. Related to Vertigo Will f/u with fastin g blood test. Suspect it will be improved with the healthy dietary changes and regular exercise she has been doing. Related to Screening for lipoid disorders Will f/u with lab re sult. Pt request estrogen level due to working out frequently. Related to Menopausal hot flushes Patient declined pre scription for meclizine. Perform Mick's maneuvar daily. Check BP before rising out of bed at night for possible cause being hypotension. RTC for no improvement or worsening. Related to Benign positional vertigo Referred to Allergis t for evaluation. Continue to monitor and perform further testing of possible Celiacs if indicated. Patient had colonoscopy last year which was normal and was following diet low in gluten at this time. Related to Gluten intolerance After eating gluten daily for 2 weeks check celiac panel. May check allergen profile as well as patient believes she may be allergic to peanuts. Patient just had a colonoscopy and declined referral for this at this time. Discussed importance of confirming diagnosis and patient understands. Related to Gluten intolerance Patient has pending referral for mammogram. Related to Screening breast examination Reviewed/discussed l ab results. Pt has pending referral for endo due to h/o adrenal exhaustion. Related to Chronic fatigue Normal LOAN CLERK exam. Enc ourged to perform monthly SBE. Discussed importance of taking calcium with vitamin D dialy. F/u with results, if normal, repeat again in 3 years. Advised patient that is is still recommend to have yearly pelvic/breast exam.Guiac negative. Related to Visit for gynecologic examination Asymptomatic, noted while wearing heart monitor. Pt to avoid caffeine. Referral for event monitor. ER precautions advised. Related to Palpitations Referral to derm. Related to Ski n lesion Referral for screening c-scope. Related to Screening for colon cancer Pt with h/o adrenal exhaustion and c/o chronic fatigue, requests consult with real estate accountant, referral placed. Related to Chronic fatigue Will f/u with fastin g blood test. Discussion of healthy lifestyle modifications. Discussed taking calcium with vitamin D. Pt has appt scheduled with LOAN CLERK for routine exam tomorrow. Related to ROUTINE MEDICAL EXAM Assessments Type Assessment Date assessment Postmenopausal bleeding 020 assessment Hypothyroidism, unspecified type impression -Taking medication a s prescribed-No issues with medication, feels current dosage is working well-Recent TSH on 02/20 showed normal TSH levels Mental Status Date Cognitive Assessment Orientation - [place] ed to time, place, person, situation. Patient Care Teams Name Effective Dates (start - stop) Status Members No Information
--- OUTSIDE RECORDS SUMMARY | 2020-04-15 04:45 | XMS_ITS | Continuity of Care Document ---
Author Organization [facility] Address [address] [place] [address] Phone Care Team Providers Care Journeyman Apprentice Electricians Name Role Phone Unavailable Unavailable Unavailable Allergies, Adverse Reactions, Alerts Substance Reaction Status Criticality FESOTERODINE FUMARATE Constipation(moderate) Active No Information Medications Medication Instructions Dosage Effective Dates (start - stop) Status Comments [place] Thyroid 60 mg tablet take 1 tablet [...] by Oral route once 1 - Active [place] Thyroid 60 mg tablet take 1 tablet [...] Providers Copied on Encounter OFFICE/OUTPA TIENT VISIT, [facility], [address], [id number], [place] tel:[phone] [facility] Thyroid problems (chief complaint)Pos tmenopausal bleeding (chief complaint) Postmenopausa l bleedingHypot hyroidism, unspecified type 0 No Information [facility], [address], [id number], [place] tel:[phone] Clinical Services Department No Information 0 Franklyn yBrd. [address] [place], [address], [place]. tel:[phone] OFFICE/OUTPA TIENT VISIT, [facility], [address] [place] [address], [id number], [place] tel:[phone] [facility] Postmenopausa l bleeding (chief complaint) Encounter to discuss test results 0 No Information OFFICE/OUTPA TIENT VISIT, [facility], [address], [id number], [place] tel:[phone] [facility] postmenopausa l bleeding (chief complaint) Postmenopausa l bleedingHypot hyroidism, unspecified typeVitamin D deficiency 0 Franklyn Byrd. [address] [place], [address], [place]. tel:[phone] [facility], [address], [id number], [place] tel:[phone] [facility] No Information 0 Mati Prince. [address] [place], [address], [place]. tel:[phone] OFFICE/OUTPA TIENT VISIT, [facility], [address] [address], [place], [id number], [place] tel:[phone] [facility] Thyroid problems (chief complaint)Ins omnia (chief complaint)candice k pain (chief complaint) Hypothyroidis m, unspecified typeAdjustmen t insomniaLow back pain without sciatica, unspecified back pain laterality, unspecified chronicity 9 Tammi Carine. [address] [place], [address], [place]. tel:[phone] [facility], [address], [id number], [place] tel:[phone] [facility] Fatigue, unspecified type 9 Tammi Carine. [address] [place], [address], [place]. tel:[phone] [facility], [address], [id number], [place] tel:[phone] [facility] Screening for breast cancer 9 Tammi Carine. [address] [place], [address], [place]. tel:[phone] OFFICE/OUTPA TIENT VISIT, [facility], [address] [address], [place], [place], [id number], [place] tel:[phone] [facility] Fatigue (chief complaint)Vag inal discharge (chief complaint) Fatigue, unspecified typeVaginal dischargePost -menopausal bleedingScree marisela for colon cancer 9 Tammi Carine. [address] [place], [address], [place]. tel:[phone] OFFICE/OUTPA TIENT VISIT, [facility], [address], [place], [place], [id number], [place] tel:[phone] [facility] vaginal discharge (chief complaint) Screening for breast cancerVaginal dischargeGeni heena herpes simplex, unspecified site 5-201 8 Mati Prince. [address] [place], [address], [place]. tel:[phone] OFFICE/OUTPA TIENT VISIT, [facility], [address], [id number], [place] tel:[phone] [facility] rash (chief complaint) Perioral dermatitis Oct- 2-201 8 Tammi Carine. [address] [place], [address], [place]. tel:[phone] OFFICE/OUTPA TIENT VISIT, [facility], [address], [id number], [place] tel:[phone] [facility] Urinary frequency (FP) (chief complaint) Urinary urgencyScreen ing for STD (sexually transmitted disease) 8-201 7 Tammi Carine. [address] [place], [address], [place]. tel:[phone] OFFICE/OUTPA TIENT VISIT, [facility], [address], [id number], [place] tel:[phone] [facility] Vaginal discharge/itc gabby (chief complaint) Vaginal discharge 0-201 7 Tammi Carine. [address] [place], [address], [place]. tel:[phone] OFFICE/OUTPA TIENT VISIT, [facility], [facility], [id number], [place] tel:[phone] [facility] Follow Up of Urinary complaints (chief complaint) Genital herpes simplex, unspecified site 6-201 7 Sandip Carrera. [address] [place], [address], [place]. tel:[phone] OFFICE/OUTPA TIENT VISIT, [facility], [address], [place], [place], [id number], [place] tel:[phone] [facility] Urinary complaints (chief complaint) Dysuria Sep-2 0 7 Sandip Carrera. [address] [place], [address], [place]. tel:[phone] OFFICE/OUTPA TIENT VISIT, [facility], [address] [facility] [address], [place], [id number], [place] tel:[phone] [facility] burning with urination (chief complaint) Vaginal discharge Mar- 7 No Information OFFICE/OUTPA TIENT VISIT, [facility], [address] [address], [place], [id number], [place] tel:[phone] [facility] Skin lesion (chief complaint)Men opausal symptoms (chief complaint) AK (actinic keratosis)Pos t-menopausal Yoav- 7 Tammi Carine. [facility] [place], [address], [place]. tel:[phone] [facility], [address] [address], [place], [id number], [place] tel:[phone] Clinical Services Department hand pain (chief complaint) Preventative health care Jun- 6 [facility]. [address] [place], [address], [place]. tel:[phone] OFFICE/OUTPA TIENT VISIT, [facility], [address] [address], [place], [id number], [place] tel:[phone] [facility] musculoskelet al pain (chief complaint) Left hand pain Jun- 6 No Information OFFICE/OUTPA TIENT VISIT, [facility], [address], [id number], [place] tel:[phone] [facility] vaginal discharge (chief complaint)dinesh mogram (chief complaint) Abnormal mammogram of left breastVaginal discharge 6 Tammi Carine. [address] [place], [address], [place]. tel:[phone] OFFICE/OUTPA TIENT VISIT, EST [facility], [address], [id number], [place] tel:[phone] [facility] Vaginal discharge (chief complaint) Encounter for other specified special examinationsO ther specified noninflammato ry disorders of vagina 0 6 No Information PREV VISIT, EST, AGE 40-64 [facility], [address], [id number], [place] tel:[phone] [facility] Physical (chief complaint) Encounter for general adult medical examination without abnormal findingsScree marisela breast examinationAK (actinic keratosis) 6 Tammi Carine. [address] [place], [address], [place]. [phone] [facility], [address], [id number], [place] tel:[phone] [facility] Encounter for general adult medical examination without abnormal findingsPost- menopausal 6 Tammi Carine. [address] [place], [address], [place]. tel:[phone] OFFICE/OUTPA TIENT VISIT, EST [facility], [facility], [id number], [place] tel:[phone] [facility] Vaginal discharge/itc gabby (chief complaint) Vaginal irritation 6 Tammi Carine. [address] [place], [address], [place]. tel:[phone] OFFICE/OUTPA TIENT VISIT, [facility], [address], [id number], [place] tel:[phone] [facility] Respiratory Infection (chief complaint)cou gh (chief complaint) Cough Apr-0 8-201 6 No Information OFFICE/OUTPA TIENT VISIT, [facility], [address] [place] [address], [id number], [place] tel:[phone] [facility] Fever (chief complaint) Viral illness Oct-0 6-201 6 No Information OFFICE/OUTPA TIENT VISIT, [facility], [facility], [id number], [place] tel:[phone] [facility] musculoskelet al pain (chief complaint)abd ominal pain (chief complaint) No Information Sep-0 1-201 5 Tammi Carine. [address] [place], [address], [place]. tel:[phone] OFFICE/OUTPA TIENT VISIT, [facility], [facility], [id number], [place] tel:[phone] [facility] abdominal pain (chief complaint) No Information Yoav-2 5-201 5 Tammi Carine. [address] [place], [address], [place]. tel:[phone] OFFICE/OUTPA TIENT VISIT, [facility], [facility], [id number], [place] tel:[phone] [facility] abdominal pain (chief complaint)Hyp erlipidemia (chief complaint) No Information Yoav-0 4-201 5 Tammi Carine. [address] [place], [address], [place]. tel:[phone] OFFICE/OUTPA TIENT VISIT, [facility], [address], [place], [place], [id number], [place] tel:[phone] [facility] Syncope (chief complaint) No Information No Information OFFICE/OUTPA TIENT VISIT, [facility], [address], [place], [place], [id number], [place] tel:[phone] [facility] Menopausal symptoms (chief complaint)Diz ziness (FP) (chief complaint)candice k pain (chief complaint) No Information 5 Tammi Carine. [address] [place], [address], [place]. tel:[phone] OFFICE/OUTPA TIENT VISIT, [facility], [address], [place], [place], [id number], [place] tel:[phone] [facility] abdominal pain (chief complaint) No Information No Information OFFICE/OUTPA TIENT VISIT, [facility], [address], [place], [id number], [place] tel:[phone] [facility] abdominal pain (chief complaint) No Information No Information PREV VISIT, EST, AGE 40-64 [facility], [address] [facility] [address], [place], [place], [id number], [place] tel:[phone] [facility] PAP test (chief complaint) No Information 4 Tammi Carine. [address] [place], [address], [place]. tel:[phone] PREV VISIT, EST, AGE 40-64 [facility], [address], [place], [place], [id number], [place] tel:[phone] [facility] Preventive exam (FP) (chief complaint)Pal pitations (FP) (chief complaint)Ski n lesion (chief complaint)Fat igue (chief complaint) No Information Sep-1 0- 4 Tammi Carine. [facility] [place], [address], [place]. tel:[phone] OFFICE/OUTPA TIENT VISIT, [facility], [address] [facility] [address], [place], [place], [id number], [place] tel:[phone] [facility] (chief complaint) No Information Oct- 0 3 Gerson Mclean. [address] [place], [address], [place]. tel:[phone] OFFICE/OUTPA TIENT VISIT, [facility], [address] [address], [place], [place], [id number], [place] tel:[phone] [facility] vaginal bleeding/HRT (chief complaint) No Information Oct-0 3 Gerson Mclean. [address] [place], [address], [place]. tel:[phone] OFFICE/OUTPA TIENT VISIT, [facility], [address] [address], [place], [place], [id number], [place] tel:[phone] [facility] musculoskelet al pain (chief complaint) No Information [...] emphysema Payers Payer name Insurance type Covered republican ID Eduar dow(s) [facility] Medicaid [id number] Social History Type Description Quantity Date Captured [...] Routine Scre ening. Due on due Goal Pap/HPV testing. Due on due Goal Zoster vaccine ( ). Due on due Goal Depression scree marisela. Due on due Goal Dental exam. Due on due Goal Tdap. Due on due Goal FOBT. Due on due Goal Lipid panel. Due on 024 due Goal Colonoscopy. Due on 029 due Goal Mammogram. Due on 3 due Goal Td vaccine. Due on 20 due Goal Influenza vaccine. Due on due Goal Pap/HPV testing. Due on due Goal Dental exam. Due on 020 due Goal Zoster vaccine ( ). Due on due Goal Depression scree marisela. Due on due Goal Lipid panel. Due on due Goal Td vaccine. Due on due Goal Mammogram. Due on due Goal Colonoscopy. Due on due Goal FOBT. Due on due Goal Tdap. Due on due Goal Influenza vaccine. Due on due Goal Pap/HPV testing. Due on due Goal Dental exam. Due on due Goal Depression scree marisela. Due on due Goal Zoster vaccine ( ). Due on due Goal FOBT. Due on due Goal Td vaccine. Due on due Goal Mammogram. Due on 1 due Goal Lipid panel. Due on due Goal Colonoscopy. Due on due Goal Tdap. Due on due Goal Influenza vaccine. Due on due Goal Pap/HPV testing. Due on due Goal Zoster vaccine ( ). Due on due Goal Depression scree marisela. Due on due Goal Dental exam. Due on due Goal Mammogram. Due on 1 due Goal FOBT. Due on due Goal Colonoscopy. Due on due Goal Tdap. Due on due Goal Lipid panel. Due on due Goal Td vaccine. Due on due Goal Influenza vaccine. Due on due Goal Pap/HPV testing. Due on due Goal Depression scree marisela. Due on due Goal Zoster vaccine ( 1st). Due on due Goal Dental exam. Due on due Goal Td vaccine. Due on 20 due Goal Tdap. Due on due Goal Lipid panel. Due on due Goal Mammogram. Due on due Goal FOBT. Due on due Goal Colonoscopy. Due on due Goal Influenza vaccine. Due on due Goal Pap/HPV testing. Due on due Goal Zoster vaccine ( ). Due on due Goal Depression scree marisela. Due on due Goal Dental exam. Due on due Goal Lipid panel. Due on due Goal Mammogram. Due on due Goal Tdap. Due on due Goal Td vaccine. Due on 19 due Goal Colonoscopy. Due on due Goal FOBT. Due on due Goal Influenza vaccine. Due on due Goal Depression scree marisela. Due on due Goal Lipid panel. Due on due Goal Dental exam. Due on due Goal Tdap. Due on due Goal Influenza vaccine. Due on due Goal Td vaccine. Due on 19 due Goal Pap/HPV testing. Due on due Goal Depression scree marisela. Due on due Goal Lipid panel. Due on due Goal Td vaccine. Due on due Goal Influenza vaccine. Due on due Goal Tdap. Due on due Goal Dental exam. Due on due Goal Pap/HPV testing. Due on due Goal Dental exam. Due on due Goal Pap/HPV testing. Due on due Goal Td vaccine. Due on 19 due Goal Depression scree marisela. Due on due Goal Lipid panel. Due on due Goal Influenza vaccine. Due on due Goal Tdap. Due on due Goal Dental exam. Due on due Goal Pap/HPV testing. Due on due Goal Lipid panel. Due on due Goal Td vaccine. Due on 18 due Goal Tdap. Due on due Goal Depression scree marisela. Due on due Goal Influenza vaccine. Due on Oc due Goal Mammogram. Due on 8 due Goal Dental exam. Due on due Goal Influenza vaccine. Due on Ap due Goal Td vaccine. Due on 18 due Goal FOBT. Due on due Goal FOBT. Due on due Goal Td vaccine. Due on 17 due Goal Influenza vaccine. Due on due Goal Dental exam. Due on 017 due Goal FOBT. Due on due Goal Td vaccine. Due on 17 due Goal Influenza vaccine. Due on Oc due Goal FOBT. Due on due Goal Influenza vaccine. Due on Se due Goal Td vaccine. Due on due Goal Td vaccine. Due on due Goal FOBT. Due on due Goal Influenza vaccine. Due on due Goal Td vaccine. Due on due Goal Influenza vaccine. Due on due Goal FOBT. Due on due Goal Sigmoidoscopy. Due on due Goal Td vaccine. Due on 17 due Goal Influenza vaccine. Due on due Goal FOBT. Due on due Goal Lifestyle education regardin g diet [...] Future Order: Lab Order Vitamin D, 25-Hydroxy ([id number]), Appointment on: Ordered Future Order: Lab Order Celiac D isease Antibody Screen ([id number]), Appointment on: Ordered Future Order: Lab Order Allergen Profile, Basic Food ([id number]), Appointment on: Ordered Future Order: Lab Order Celiac D isease Antibody Screen ([id number]), Appointment on: Ordered Future Order: Lab Order Allergen Profile, Basic Food ([id number]), Appointment on: Ordered Future Order: Lab Order Celiac D isease Antibody Screen ([id number]), Appointment on: Ordered Future Order: Lab Order Allergen Profile, Basic Food ([id number]), Appointment on: Ordered Future Order: Lab Order Celiac D isease Antibody Screen ([id number]), Appointment on: Ordered Future Order: Lab Order TSH ([id number]), O rdered on: Ordered Future Order: Lab Order CBC with Diff ([id number]), Ordered on: Ordered History Of Present Illness [...] HRT with testosterone and estrogen with naturopathic SUPERVISOR STOCK RANCH - feels it was too much too [...] then started bleeding. She is stuck in [place] given COVID-19 pandemic and is looking to fly back to [place] in 2-3 weeks. She is taking [place] Thyroid 60mg QD and last thyroid tests ~6 and 12 mo ago looked unremarkable. Did not go for past US or COMBINED RAIL OPERATOR referral placed by prior PCP. Discussed new [...] tates that she has been seeing a SUPERVISOR STOCK RANCH for bio-identical hormones. Initially started on 60mg [...] havi ng difficulty sleeping prior to stopping [place] Thyroid but continues to have difficulty and now with nightmares. Pt is moving back to [place] for a few months (mainly for the [...] When she was visiting family in the [place] she was cycling. Fatigue This is a [...] melena, myalgia, pallor and pruritus. Vaginal discharge (comments) Bernabe koch 2 weeks ago used an estrogen suppository to help with hormone imbalance. States since then she has had a slightly blood tinged discharge. No panty liner but like a sticky discharge, states more dark brown and NOT bright red. She is post-menopausal for about 6 years. Vaginal discharge Her symptoms b rosalia 2 [...] vaginal/groin or vulvar dystrophy. vaginal discharge (comments) Jordyn cesar is a [...] 3 outbreaks this year. vaginal discharge rash (comments) States she has h ad a rash on her face, she did try primrose oil and aleovera. This did help but still has some remnants of rash. rash The patient pres ents for rash. [...] of asthma and history of atopic dermatitis. Urinary frequency (FP) (comments ) States she has been having urinary urgency, symptoms started in Mar. No accident or overflow incontinence. Some stress incontinence but not bothersome. Urinary frequency (FP) Onset: 2 months ago. [...] no history of UTIs and sexually active. Vaginal discharge/itching She st ates the problem [...] rash, vomiting, weight gain and weight loss. Hyperlipidemia Risk factors inc lude age over 50. The patient is adhering to medication for their hyperlipidemia. Associated symptoms include nausea. Pertinent negatives include chest pain, constipation, diarrhea, dizziness, dyspnea, excessive thirst, heartburn, hematuria, increased fatigue, myalgia, rash,'+ vomiting, weight gain and weight loss. abdominal [...] c-scope 04/2014 normal, repeat in 10 years. Syncope Onset was sudden . The duration [...] alcohol. Additional information: Patient here for routine COMBINED RAIL OPERATOR care. Pt has pending referral for mammogram. LMP was 07/2013. Last pap smear was 2010, no h/o abnormal. PAP test (comments) Patient here for routine COMBINED RAIL OPERATOR care. Pt has pending referral for mammogram. [...] Patient states she has pending appt with COMBINED RAIL OPERATOR tomorrow. Requesting referral for c-scope. Patient has [...] on medication usage Related to Postmenopausal bleeding -as above Related to Hypot hyroidism, unspecified type -as above Related to Vitam in D deficiency -pelvic US and OBGYN referral-emergency precautions related to bleeding-stay hydrated, iron-rich diet-check labs when back in [place] - thyroid, CBC, pt requesting vit D for h/o vit D def-avoid estrogen/testosterone from naturopathic provider right now-f/up after labs, telehealth may be ok Related to Postmenopausal bleeding - Discussed diagnosi s w/ pt. - [...] genital area well and gently pat dry.A chair post machine operator on the cool setting may be helpful [...] have low vitamin D when evaluated by lead embedded software engineer. Will f/u with results. Related to Vitamin D deficiency This has failed to i mprove and symptoms present for over a month. Referral for vestibular therapy. If fails to improve, will consult ENT. Related to Vertigo Will f/u with lab re sult. Pt request estrogen level due to working out frequently. Related to Menopausal hot flushes Will f/u with fastin g blood test. Suspect it will be improved with the healthy dietary changes and regular exercise she has been doing. Related to Screening for lipoid disorders Patient declined pre scription for meclizine. Perform [...] and patient understands. Related to Gluten intolerance Normal COMBINED RAIL OPERATOR exam. Enc ourged to perform monthly SBE. Discussed importance of taking calcium with vitamin D dialy. F/u with results, if normal, repeat again in 3 years. Advised patient that is is still recommend to have yearly pelvic/breast exam.Guiac negative. Related to Visit for gynecologic examination Reviewed/discussed l ab results. Pt has pending referral for endo due to h/o adrenal exhaustion. Related to Chronic fatigue Patient has pending referral for mammogram. Related to Screening breast examination Asymptomatic, noted while wearing heart monitor. Pt to avoid caffeine. Referral for event monitor. ER precautions advised. Related to Palpitations Referral to derm. Related to Ski n lesion Referral for screening c-scope. Related to Screening for colon cancer Will f/u with fastin g blood test. Discussion of healthy lifestyle modifications. Discussed taking calcium with vitamin D. Pt has appt scheduled with COMBINED RAIL OPERATOR for routine exam tomorrow. Related to ROUTINE MEDICAL EXAM Pt with h/o adrenal exhaustion and c/o chronic fatigue, requests consult with lead embedded software engineer, referral placed. Related to Chronic fatigue Assessments Type Assessment Date assessment Postmenopausal bleeding 020 assessment Hypothyroidism, unspecified type impression -Taking medication a s prescribed-No issues with medication, feels current dosage is working well-Recent TSH on 02/20 showed normal TSH levels Mental Status Date Cognitive Assessment Orientation - [place] ed to time, place, person, situation. Patient Care Teams Name Effective Dates (start - stop) Status Members No Information
--- NOTE | ~2025-03-06 | CT_ITS ---
EXAMINATION: CT cervical spine wo con DATE: 03/06/2025 15:55 INDICATION: Neck pain after injury TECHNIQUE: Computed tomography (CT) of the cervical spine was performed without intravenous contrast. The dose-length product was 214 mGy-cm. Automated exposure control and iterative reconstruction technique were employed. COMPARISON: CT dated 08/20/2024 FINDINGS: Straightening of cervical lordosis. Craniovertebral junction is normal. There is degenerative anterolisthesis at C4-5 secondary to facet degenerative change. There is mild disc narrowing at C5-6 and C6-7. No significant change to alignment compared with prior study For technique. Odontoid process is normal. No evidence for perched facet. There is multilevel uncinate and facet hypertrophy. There are peripheral interstitial changes of the lung apices, likely chronic. IMPRESSION: 1. No acute abnormality of the cervical spine. Reviewed, dictated and finalized at location O.
--- NOTE | ~2025-03-06 | CT_ITS ---
EXAMINATION: CT BRAIN W/O DATE: 03/06/2025 15:55 INDICATION: Head injury. Headache. TECHNIQUE: Computed tomography (CT) of the head was performed without intravenous contrast. The dose-length product was 605.33 mGy-cm. Automated exposure control and iterative reconstruction technique were employed. COMPARISON: CT dated 08/20/2014 FINDINGS: Normal brain parenchymal volume for age. Normal rogers-white differentiation. No acute intracranial hemorrhage, infarction, mass or mass effect. No ventriculomegaly or midline shift. Midline sagittal images demonstrate a normal corpus callosum, craniovertebral junction and sella turcica. Basilar cisterns are patent. Paranasal sinuses and mastoids are pneumatized. No depressed skull fractures. IMPRESSION: 1. No acute intracranial abnormality. Reviewed, dictated and finalized at location O.
[2025-03-06 14:32] VITALS: BP 116/67; PULSE 73; RESP 16; TEMP 36.8; O2SAT 100
--- NOTE | 2025-03-06 15:37 | ED_ITS ---
HPI - Head Injury General Chief complaint: Head Injury Stated complaint: head injury Time Seen by Provider: 03/06/25 14:40 Source: patient Mode of arrival: ambulatory Limitations: no limitations History of Present Illness HPI Narrative: This is a 64 year old female that presents to the ER for head injury. Sustained one week ago. 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 She did not see a tree branch hanging down and ran into it. Reports since she has been having headaches, confusion. She is not on anticoagulation. Denies vision changes, vomiting, numbness, weakness. Related Data Home Medications ?Medication ?Instructions ?Recorded ?Confirmed ?Last Taken ?Type minerals 1 tablet PO DAILY 01/24/24 0 10/08/24 Unknown History multivitamin 1 cap PO DAILY 01/24/24/01/25 Unknown History potassium bicarb 500 mg-magnesium 1 g PO DAILY 4 10/08/24 Unknown History 300 mg/6.1 gram effervescent powder (Magnesium Fizz-Plus) Allergies Allergy/AdvReac Type Severity Reaction Status Date / Time [id number] Reductase Allergy Intermediate pain Verified 03/06/25 14:34 Inhibitor nirmatrelvir (From Paxlovid) AdvReac Intermediate Anxiety, Verified 03/06/25 14:34 confusion oseltamivir (From Tamiflu) AdvReac Intermediate Unknown Verified 03/06/25 14:34 ritonavir (From Paxlovid) AdvReac Intermediate Anxiety, Verified 03/06/25 14:34 confusion Review of Systems Review of Systems: All systems reviewed & are unremarkable except as noted in HPI and below PMFSH Past Medical History Medical History (Updated 03/06/25 @ 16:47 by Deysi Blandon PA-C) Osteoarthritis Stress incontinence Uterine prolapse Post-menopausal Hypothyroidism Surgical History Surgical History History of bilateral salpingo-oophorectomy (01/30/24) History of hysterectomy, supracervical (01/30/24) History of midurethral sling procedure (01/30/24) History of sacrocolpopexy (01/30/24) History of uterine suspension procedure History of tonsillectomy Family History Family History (Updated 10/08/24 @ 10:27 by Luciana Patel MA) Sibling Breast cancer Mother Pulmonary embolism Social History Social History (Updated 10/08/24 @ 10:27 by Luciana Patel MA) Social History: Surrogate medical decision maker: Jessee De La Cruz, spouse. Code status: Full code. Smoking packs per day: 0.25 Smoking cigarettes per day: 5.0 Years smoked: 5 Smoking pack-years: 1.25 Smoking status: Former smoker Tobacco type: cigarettes Smoking end date: 11/01/97 Alcohol intake: former Substance use: never Substance use type: does not use Do You Feel Safe in your Home?: Yes Lack of Transportation: No Lack of Food: Never True Current Housing: I Have Housing Concerned About Future Housing: No Difficulty Paying Gas/Electric Bills: No Difficulty Paying for Meds: No Currently Unemployed: No Education: Associate Degree Difficulty w/ Childcare or Family Care: No Living arrangements: with family Additional living arrangements comments: Lives with spouse. Spiritual care concerns: No Exam Narrative: GENERAL: Well-appearing, well-nourished, and in no acute distress. HEAD: Normocephalic, atraumatic. EYES: PERRLA and EOMI. ENT: Nares clear, no rhinorrhea or epistaxis. Mucous membranes moist. Oropharynx without tonsillar hypertrophy exudate or other lesions. Bilateral TMs pearly rogers non-bulging NECK: Supple. No adenopathy or masses. CHEST: Clear to auscultation. No respiratory distress. No wheezes rales or rhonchi HEART: Regular rate and rhythm. No murmur heard. Normal peripheral pulses. EXTREMITIES: Normal range of motion. No edema. Strength equal in bilateral upper lower extremities (5/5) SKIN: Warm, dry, no rash. NEURO: No focal deficits. Alert and oriented x3. Cranial nerves 2-12 grossly intact PSYCH: Normal mood and affect Course Course Emergency Course: Patient updated on workup and agrees with plan of care Vital Signs Vital signs: Vital Signs Temperature 98.2 F 03/06/25 14:32 Pulse Rate 73 03/06/25 14:32 Respiratory Rate 16 03/06/25 14:32 Blood Pressure 116/67 03/06/25 14:32 Pulse Oximetry 100 03/06/25 14:32 Temperature 98.2 F 03/06/25 14:32 Pulse Rate 73 03/06/25 14:32 Respiratory Rate 16 03/06/25 14:32 Blood Pressure 116/67 03/06/25 14:32 Pulse Oximetry 100 03/06/25 14:32 MDM - Head Injury MDM Narrative Medical decision making narrative: Patient presents the emergency department after a head injury 1 week ago with headache and neck pain. She is neurologically intact. Vital signs are normal. CT brain and cervical spine without acute findings. Patient instructed on continued care of concussion. She is to follow up with primary provider. She was given warnings to return to the ER Differential Diagnosis Differential diagnosis: Likely concussion without loss of consciousness, closed head injury and subdural hematoma Imaging Data Radiologist's impression: ITS Impressions Head CT 03/06/25 16:09 IMPRESSION: 1. No acute intracranial abnormality. Cervical Spine CT 03/06/25 16:11 IMPRESSION: 1. No acute abnormality of the cervical spine. Critical Care Time Critical Care Time Critical Care Time: No Discharge Plan Discharge Clinical Impression: Head injury Qualifiers: Encounter type: initial encounter Qualified Code(s): S09.90XA - Unspecified injury of head, initial encounter Patient Disposition: Home Condition: Stable Instructions: Concussion (ED) Additional Instructions: Return to the emergency department if you experience fever, vomiting, weakness, numbness, or any other symptoms that are concerning to you. Rest. Remain well hydrated. Tylenol or Ibuprofen as needed for pain Follow up with your primary care doctor Patient Language: Jordanian Prescriptions: No Action polyethylene glycol 3350 [Miralax] 17 gram powder in packet 17 g PO BID Qty: 30 0RF multivitamin Capsule 1 cap PO DAILY Magnesium Fizz-Plus 500-300 mg/6.1 gram Powder Effervescent 1 g PO DAILY minerals Tablet 1 tablet PO DAILY acetaminophen [Tylenol Arthritis Pain] 650 mg tablet extended release 650 mg PO Q8H PRN (Reason: pain) Qty: 30 0RF Follow-up/Referrals: Daniel Higgins MD [Primary Care Provider, Internal Medicine]
[2025-03-06 17:01] VITALS: BP 122/68; PULSE 86; RESP 16; O2SAT 99
== END 2025-03-06 17:04 | disposition home or self-care (01) ==
PROVIDERS: Emergency Provider Physician Assistant; PCP Emergency Medicine
DX: S09.90XA Unspecified injury of head, initial encounter (principal); E03.9 Hypothyroidism, unspecified; M19.90 Unspecified osteoarthritis, unspecified site; Z87.891 Personal history of nicotine dependence; Z90.711 Acquired absence of uterus with remaining cervical stump; Z90.722 Acquired absence of ovaries, bilateral; Z90.79 Acquired absence of other genital organ(s); W22.8XXA Striking against or struck by other objects, initial encounter; Y93.H2 Activity, gardening and landscaping
CPT/HCPCS: 70450; 72125; 99284